=== PATIENT | male | born 1950 | race Caucasian/White ===

== ENCOUNTER 2023-10-29 09:45 | Outpatient (CLI) | payer BC, SELFPAY ==
--- NOTE | 2023-10-29 12:51 | W.ANESCHARGE ---
Anesthesia Charges Start Date/Time Anesthesia Start Date: 10/29/23 Anesthesia Start Time: 12:38 Stop Date/Time Anesthesia Stop Date: 10/29/23 Anesthesia Stop Time: 13:10 Summary Extremes of Age - Over 70 or under 1: MDA
--- NOTE | 2023-10-29 13:12 | W.ANESCHARGE ---
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
== END 2023-10-29 09:46 | disposition home or self-care (01) ==
PROVIDERS: Visit Provider Internal Medicine Gastroenterology
DX: K63.5 Polyp of colon (principal); K64.8 Other hemorrhoids; K57.30 Diverticulosis of large intestine without perforation or abscess without bleeding; Q43.8 Other specified congenital malformations of intestine; Z86.010 Personal history of colon polyps
CPT/HCPCS: 00811; 45380; 88305; 99100; J2704

== ENCOUNTER 2025-06-20 09:58 | Emergency (ER) | payer BC, SELFPAY ==
--- OUTSIDE RECORDS SUMMARY | 2025-05-08 08:29 | XMS_ITS | Encounter Summary ---
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 [address] [place] [address] Phone: tel: fax: [facility] Referral IDStatusReasonStart DateExpiration DateVisits RequestedVisits [id number]/7/20251/ Encounter Details DateTypeDepartmentCare Team (Latest Contact Info)Rxrocyqupxf62/07/2025 8:29 AM ELECTRICIAN CRANE MAINTENANCE - 05/08/2025 10:12 AM CSTHospital Encounter Department of Radiology, [facility], in [place], [place] [address] [place] [address] Andre Garcia M.D. 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) Discharge Disposition: Home or Self Care Social History Tobacco UseTypesPacks/DayYears UsedDateSmoking Tobacco: [id number] - 1976CigarsPassive Smoke Exposure: PastSmokeless Tobacco: NeverAlcohol Use Standard Drinks/WeekCommentsYes6 (1 standard drink = 0.6 oz pure alcohol) Humiliation, Afraid, Rape, and Kick questionnaireAnswerDate RecordedWithin the last year, have you been afraid of your partner or ex-partner?No03/07/2022Within the last year, have you been humiliated or emotionally abused in other ways by your partner or ex-partner?No03/07/2022Within the last year, have you been kicked, hit, slapped, or otherwise physically hurt by your partner or ex-partner?No03/07/2022Within the last year, have you been raped or forced to have any kind of sexual activity by your partner or ex-partner?No03/07/2022 Hunger Vital SignAnswerDate RecordedWithin the past 12 months, you worried that your food would run out before you got the money to buymore.Never true01/27/2025 Within the past 12 months, the food you bought just didn't last and you didn't have money to get more.Never true01/27/2025PRAPARE - TransportationAnswerDate RecordedIn the past 12 months, has lack of transportation kept you from medical appointments or from getting medications?No01/27/2025In the past 12 months, has lack of transportation kept you from meetings, work, or from getting things needed for daily living?No01/27/2025HC UtilitiesAnswerDate RecordedIn the past 12 months has the electric, gas, oil, or water company threatened to shut off services in your home?No01/27/2025Housing StabilityAnswerDate RecordedWhat is your living situation today?I have a steady place to live01/27/2025Education AnswerDate RecordedWhat is the highest level of school you have completed or the highest degree you have received?Iffpvgbcz37/16/2022ex and Gender Information ValueDate RecordedSex Assigned at IrlzgIiyb65/07/2018 1:03 PM CDTLegal SexMale 08/03/2016 5:25 PM CSTGender TqdzpxtkXvey87/07/2018 1:03 PM CDTSexual TehsrhvjzcmRqbzycnw94/07/2018 1:03 PM CDTdocumented as of this encounter Medications at Time of Discharge MedicationSigDispense QuantityRefillsLast FilledStart DateEnd Date acetaminophen-codeine (TylenoL #3) 300-30 mg per tablet Indications:Acute Pain ExceptionTake 1 tablet by mouth every 6 (six) hours as needed for severe pain or score 7-10 of 10 (rarely had to taje) Indications: Acute Pain Exception. 15 tablet 12/29/2024 amoxicillin (AmoxiL) 500 mg capsule Indications:Prophylaxis Subacute Bacterial EndocarditisTake 4 caps (2000 mg) 1 hour prior to procedure. 4 capsule candesartan (Atacand) 32 mg tablet Take 32 mg by mouth daily. cholecalciferol (VITAMIN D3) tablet Take 5,000 Units by mouth daily. hydrocortisone (CORTAID) 1 % cream Apply topically as needed.07/22/2018 levothyroxine (SYNTHROID, LEVOTHROID) 137 mcg tablet Take 137 mcg by mouth every morning before breakfast. magnesium oxide-Mg AA chelate (magnesium, amino acid chelate,) 133 mg tablet Take 144 mg by mouth daily. 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) documented in this encounter Administered Medications Medication OrderMAR ActionAction DateDoseRateSite ammonia N 13 injection SKILLED NURSING (N-13 ammonia) 9-16.5 millicurie, intravenous, Once, On Sun05/08/25 at 1000, For 1 dose, Imaging Protocol Orders Given05/08/2025 9:29 AM CST12.3 millicuries ammonia N 13 injection SKILLED NURSING (N-13 ammonia) 9-16.5 millicurie, intravenous, Once, On Sun05/08/25 at 1000, For 1 dose, Imaging Protocol Orders Given05/08/2025 9:44 AM CST13.2 millicuries regadenoson injection 0.4 mg (Lexiscan) 0.4 mg, intravenous, Once, On Sun05/08/25 at 1030, For 1 dose, Intraprocedure - Diagnostic, See protocol Administer via rapid IV injection (approximately 10 seconds). Given05/08/2025 9:44 AM CST0.4 mg sodium chloride 0.9 % injection 5 mL 5 mL, intravenous, As needed, line care, See protocol, Starting on Sun05/08/25 at 1000, Intraprocedure - Diagnostic Given05/08/2025 9:44 AM CST5 mLdocumented in this encounter Additional Health Concerns AssessmentNoted TimePHQ-9 Depression Total Score: 1:04 PM CDT documented as of this encounter Care Teams Team MemberRelationshipSpecialtyStart DateEnd Date Elsewhere, Pcp PCP - GeneralFamily Medicine03/23/21documented as of this encounter
--- OUTSIDE RECORDS SUMMARY | 2025-05-08 10:13 | XMS_ITS | Encounter Summary ---
Author Organization [facility] Address [address] [place] [address] Care Team Providers Care Javascript Front End Developer Name Role Phone Elsewhere, Pcp Primary Care Provider Unavailabl e Encounter Details DateTypeDepartmentCare Team (Latest Contact Info)Cxlevdcuoqj93/07/2025 10:13 AM REGIONAL RETAIL SALES MANAGER - 05/08/2025 11:01 AM CSTHospital Encounter Department of Laboratory Medicine and Pathology, [facility] in [place], [place] [address] [place] [address] Andre Garcia M.D. 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) Discharge Disposition: Home or Self Care Social History Tobacco UseTypesPacks/DayYears UsedDateSmoking Tobacco: [id number] - 1975CigarsPassive Smoke Exposure: PastSmokeless Tobacco: NeverAlcohol [...] RecordedIn the past 12 months has the [employer], gas, oil, or water [employer] threatened to shut off services in your home?No01/27/2025Housing StabilityAnswerDate RecordedWhat is your living situation today?I have a steady place to live01/27/2025Education AnswerDate RecordedWhat is the highest level of school you have completed or the highest degree you have received?Wvwcflffv21/16/2022ex and Gender Information ValueDate RecordedSex Assigned at NtomgAeyl17/07/2018 1:03 PM CDTLegal SexMale 08/03/2016 5:25 PM CSTGender XbyyhxoeBobx91/07/2018 1:03 PM CDTSexual PesfhultwyxAjdpizbs11/07/2018 1:03 PM CDTdocumented as of this encounter [...] as of this encounter Procedures Procedure NamePriorityDate/TimeAssociated DiagnosisCommentsLIPID PANEL, SRoutine 05/08/2025 10:30 AM REGIONAL RETAIL SALES MANAGER Shortness Of Breath 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) documented in this encounter Results * Lipid Panel (05/08/2025 10:30 AM REGIONAL RETAIL SALES MANAGER)ComponentValueRef RangeTest Method Analysis TimePerformed AtPathologist BcutifstrWayplgrlgbema06rz/dL05/08/2025 11:30 AM CSTDTLComment: ----REFERENCE VALUE---- Normal: <150 mg/dL Borderline High: 150-199 mg/dL High: 200-499 mg/dL Very High: > or =500 mg/dL Cholesterol, Mkhse361hv/dL05/08/2025 11:30 AM CSTDTLComment: ----REFERENCE VALUE---- Desirable: < 200 mg/dL Borderline High: 200 - 239 mg/dL High: > or = 240 mg/dL Cholesterol, LDL, Kxwuxcdhbt32wi/dL05/08/2025 11:30 AM CSTDTLComment: ----REFERENCE VALUE---- Desirable: <100 mg/dL Above Desirable: 100-129 mg/dL Borderline High: 130-159 mg/dL High: 160-189 mg/dL Very High: >=190 mg/dL ----ADDITIONAL INFORMATION---- LDL cholesterol calculated using the Richardson/NIH equation. Cholesterol, HDL, S51>=40 mg/dL05/08/2025 11:30 AM CSTDTLCholesterol, Non-HDL, Exkwzqfajn11dz/dL05/08/2025 11:30 AM CSTDTLComment: ----REFERENCE VALUE---- Desirable: <130 mg/dL Above Desirable: 130-159 mg/dL Borderline High: 160-189 mg/dL High: 190-219 mg/dL Very High: > or =220 mg/dL Fasting (8 HR or more)Yes05/08/2025 10:30 AM CSTDTLSpecimen (Source)Anatomical Location / LateralityCollection Method / VolumeCollection TimeReceived TimeBlood (Blood, Venous)05/08/2025 10:30 AM CST05/08/2025 10:52 AM REGIONAL RETAIL SALES MANAGER Narrative Authorizing ProviderResult TypeResult StatusRobert Rony Garcia M.D.LAB BLOOD ADD-ON Final ResultPerforming OrganizationAddressCity/State/ZIP CodePhone Number [facility] [address] [place] [address], [facility] DTL 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
--- OUTSIDE RECORDS SUMMARY | 2025-05-08 11:02 | XMS_ITS | Encounter Summary ---
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 [address] [place] [address] Phone: tel: fax: [facility] Referral IDStatusReasonStart DateExpiration DateVisits RequestedVisits [id number]/7/202711 Encounter Details DateTypeDepartmentCare Team (Latest Contact Info)Xyraljgjanb89/07/2025 11:02 AM INTERIOR DESIGN COORDINATOR - 05/08/2025 2:29 PM CSTHospital Encounter Department of Radiology, [facility], in [place], [place] [address] [place] [address] Andre Garcia M.D. 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); Inferior Vena Cava Filter Discharge Disposition: Home or Self Care Social History Tobacco UseTypesPacks/DayYears UsedDateSmoking Tobacco: [id number] - 1976CigarsPassive Smoke Exposure: PastSmokeless Tobacco: NeverAlcohol [...] completed or the highest degree you have received?Sshlvlhvx67/16/2022ex and Gender Information ValueDate RecordedSex Assigned at FcbitZkid97/07/2018 1:03 PM CDTLegal SexMale 08/03/2016 5:25 PM CSTGender DcrscigiPscd81/07/2018 1:03 PM CDTSexual AbgyfmiuutlJqjrzded01/07/2018 1:03 PM CDTdocumented as of this encounter [...] as of this encounter Procedures Procedure NamePriorityDate/TimeAssociated DiagnosisCommentsUS LOWER EXTREMITY VEINS BILATERALRAD - Routine (most inpatients and all outpatients)05/08/2025 2:03 PM INTERIOR DESIGN COORDINATOR 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 Positive for acute DVT. Acute appearing, occlusive thrombus in the right soleal vein was not visualized on the comparison examination dated 01/09/2025. 2. Positive for age indeterminate DVT. A segment of occlusive thrombus in one of the paired left posterior tibial veins at the level of the upper calf was not demonstrated on the prior examination of01/09/2025. 3. Aging, incompletely recanalized thrombus in the left soleal vein. 4. Again noted is a large left thigh hematoma, which compresses the left femoral vein and again noted to cause venous obstruction by extrinsic compression of the femoral vein. Slow flow is noted in the veins below the hematoma level. The findings were discussed with the covering physician, Dr. Allen, pager [phone], at 1447 hours today. Narrative 05/08/2025 3:48 PM INTERIOR DESIGN COORDINATOR EXAM: US LOWER EXTREMITY VEINS BILATERAL Exam performed with color and spectral Doppler analysis. COMPARISON: 12/26/2024 and 01/09/2025. FINDINGS: RIGHT: Common Femoral Vein: Negative. Profunda Femoral Vein: Negative. Femoral Vein: Negative. Popliteal Vein: Negative. Gastrocnemius Veins: Negative where seen. Soleal Veins: Acute DVT. Occlusive thrombus in the right soleal vein was not visualized on the comparison examination dated 01/09/2025. Posterior Tibial Veins: Negative where seen. Peroneal Veins: Negative where seen. Great Saphenous Vein: Negative where seen. Small Saphenous Vein: Not Evaluated. Popliteal Fossa: Negative. Other: n/a LEFT: Common Femoral Vein: Negative. Profunda Femoral Vein: Negative. Femoral Vein: Negative for acute DVT. Significantly compressed by the very large thigh hematoma, which was seen previously. Slow flow is noted in the in the veins below the hematoma level. Popliteal Vein: Negative. Gastrocnemius Veins: Negative where seen. Soleal Veins: Aging, incompletely recanalized thrombus. Posterior Tibial Veins: Age indeterminate DVT. A segment of occlusive thrombus in one of the pairedleft posterior tibial veins at the level of the upper calf was not demonstrated on the prior examinations. Peroneal Veins: Negative where seen. Great Saphenous Vein: Negative where seen. Small Saphenous Vein: Not Evaluated. Popliteal Fossa: Negative. Other: n/a Information on venous thrombosis and management can be found on the [employer] site. Link https://[employer].[facility]/topic/clinical-answers/[email or web address]/[email or web address] Procedure Note Chad Mazariegos M.D. - 05/08/2025 EXAM: US LOWER EXTREMITY VEINS BILATERAL Exam performed with color and spectral Doppler analysis. COMPARISON: 12/26/2024 and 01/09/2025. FINDINGS: RIGHT: Common Femoral Vein: Negative. Profunda Femoral Vein: Negative. Femoral Vein: Negative. Popliteal Vein: Negative. Gastrocnemius Veins: Negative where seen. Soleal Veins: Acute DVT. Occlusive thrombus in the right soleal vein wasnot visualized on the comparison examination dated 01/09/2025. Posterior Tibial Veins: Negative where seen. Peroneal Veins: Negative where seen. Great Saphenous Vein: Negative where seen. Small Saphenous Vein: Not Evaluated. Popliteal Fossa: Negative. Other: n/a LEFT: Common Femoral Vein: Negative. Profunda Femoral Vein: Negative. Femoral Vein: Negative for acute DVT. Significantly compressed by the verylarge thigh hematoma, which was seen previously. Slow flow is noted in thein the veins below the hematoma level. Popliteal Vein: Negative. Gastrocnemius Veins: Negative where seen. Soleal Veins: Aging, incompletely recanalized thrombus. Posterior Tibial Veins: Age indeterminate DVT. A segment of occlusivethrombus in one of the paired left posterior tibial veins at the level ofthe upper calf was not demonstrated on the prior examinations. Peroneal Veins: Negative where seen. Great Saphenous Vein: Negative where seen. Small Saphenous Vein: Not Evaluated. Popliteal Fossa: Negative. Other: n/a Information on venous thrombosis and management can be found on the[employer] site. [email or web address].[email or web address].org/topic/clinical-answers/[email or web address]/cp [id number] IMPRESSION: 1. Positive for acute DVT. Acute appearing, occlusive thrombus in theright soleal vein was not visualized on the comparison examination date01/09/2025. 2. Positive for age indeterminate DVT. A segment of occlusive thrombus inone of the paired left posterior tibial veins at the level of the uppercalf was not demonstrated on the prior examination of 01/09/2025. 3. Aging, incompletely recanalized thrombus in the left soleal vein. 4. Again noted is a large left thigh hematoma, which compresses the leftfemoral vein and again noted to cause venous obstruction by extrinsiccompression of the femoral vein. Slow flow is noted in the veins below thehematoma level. The findings were discussed with the covering physician, Dr. Allen,pager [phone], at 1447 hours today. 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
--- OUTSIDE RECORDS SUMMARY | 2025-05-08 14:30 | XMS_ITS | Encounter Summary ---
Author Organization [facility] Address [address] [place] [address] Care Team Providers Care Shipbuilding Draftsperson Name Role Phone Elsewhere, Pcp Primary Care Provider Unavailabl e Reason for Referral * Cardiovascular-Diagnostic (Routine) - ClosedSpecialtyDiagnoses / Procedures Referred By ContactReferred To Contact Diagnoses Raynaud's Disease Procedures Upper Extremity Arterial - Vasospasm (Raynaud) Andre Garcia M.D. [address] [place] [address] Phone: tel: fax: [facility] Referral IDStatusReasonStart DateExpiration DateVisits RequestedVisits [id number]/[id number] FINISHER Reason for Visit * Cardiovascular-Diagnostic (Routine) - ClosedSpecialtyDiagnoses / Procedures Referred By ContactReferred To Contact Diagnoses Raynaud's Disease Procedures Upper Extremity Arterial - Vasospasm (Raynaud) Andre Garcia M.D. [address] [place] [address] Phone: tel: fax: [facility] Referral IDStatusReasonStart DateExpiration DateVisits RequestedVisits [id number] Encounter Details DateTypeDepartmentCare Team (Latest Contact Info)Iopbcsickzv36/07/2025 2:30 PM SEAM FINISHER - 05/08/2025 11:59 PM CSTHospital Encounter Department of Vascular Medicine in [place], [place] [address] [place] [address] Andre Garcia M.D. [address] [place] [phone] Raynaud's Disease Discharge Disposition: Home or Self Care Social History Tobacco UseTypesPacks/DayYears UsedDateSmoking Tobacco: [id number] - 1976CigarsPassive Smoke Exposure: PastSmokeless Tobacco: NeverAlcohol [...] completed or the highest degree you have received?Wfjbqkrny65/16/2022ex and Gender Information ValueDate RecordedSex Assigned at FvlelYimm52/07/2018 1:03 PM CDTLegal SexMale 08/03/2016 5:25 PM CSTGender PindaiftSncn14/07/2018 1:03 PM CDTSexual LxthydtakbjDhzemtyp06/07/2018 1:03 PM CDTdocumented as of this encounter [...] as of this encounter Procedures Procedure NamePriorityDate/TimeAssociated DiagnosisCommentsUPPER EXTREMITY ARTERIAL - VASOSPASM (RAYNAUD)Jwpestw6605/08/2025 4:26 PM SEAM FINISHER Raynaud's Disease documented in this encounter Results * Upper Extremity Arterial - Vasospasm (Raynaud) (05/08/2025 4:26 PM SEAM FINISHER) Anatomical RegionLateralityModalityOtherSpecimen (Source)Anatomical Location / LateralityCollection Method / VolumeCollection TimeReceived Time05/08/2025 2:42 PM SEAM FINISHER Narrative 05/08/2025 4:44 PM SEAM FINISHER Right: Doppler Waveform (arm): Normal at all levels evaluated. Systolic Blood Pressure (mmHg): Brachial- 138 Radial- 140 Ulnar- 141 PVR Waveforms: Normal-- arm, forearm. Sid's Test: Radial-- 105 mmHg Ulnar-- 140 mmHg Digit Pressure: ?Normal-- ?1st, ??3rd, ??5th. ?Decreased-- ? 2nd, ??4th, ?? Baseline (room) Digit Temperature: ?Decreased-- ? All digits. ?? Baseline (room) Digit Laser Doppler: ? Decreased-- ?All digits. ??Post-Warming Digit Laser Doppler: ? Decreased-- ?All digits. ?? Left: Doppler Waveform (arm): ??Normal at all levels evaluated. ??Systolic Blood Pressure (mmHg): ?Brachial- ? 140 ? Radial- ? 158 ? Ulnar- ? 144 PVR Waveforms: ?Normal-- ?? arm, forearm. Sid's Test: ? Radial-- ?132 mmHg ?Ulnar-- ? 137 mmHg Digit Pressure: ?Normal-- ?1st, ??2nd, ??3rd, ??4th, ?Decreased-- ? 5th. Baseline (room) Digit Temperature: ?Decreased-- ? All digits. ?? Baseline (room) Digit Laser Doppler: ? Decreased-- ?All digits. ??Post-Warming Digit Laser Doppler: ? Decreased-- ?All digits. ?? Conclusions: No proximal upper extremity arterial occlusive disease. ?? Sid's ??test is positive for arterial compromise in the right radial distribution. ??Arterial occlusive disease affecting most if not all digits bilaterally. ?? Secondary vasospasm bilaterally. ?? No prior studies available for comparison. ?? Procedure Note Duncan Allen M.D. - 05/08/2025 Right: Doppler Waveform (arm): Normal at all levels evaluated. SystolicBlood Pressure (mmHg): Brachial- 138 Radial- 140 Ulnar-141 PVR Waveforms: Normal-- arm, forearm. Sid's Test:Radial-- 105 mmHg Ulnar-- 140 mmHg Digit Pressure: Normal-- 1st, 3rd, 5th. Decreased--2nd, 4th, Baseline (room) Digit Temperature: Decreased--All digits. Baseline (room) Digit Laser Doppler: Decreased--All digits. Post-Warming Digit Laser Doppler: Decreased-- All digits. Left: Doppler Waveform (arm): Normal at all levels evaluated. SystolicBlood Pressure (mmHg): Brachial- 140 Radial- 158 Ulnar-144 PVR Waveforms: Normal-- arm, forearm. Sid's Test:Radial-- 132 mmHg Ulnar-- 137 mmHg Digit Pressure: Normal-- 1st, 2nd, 3rd, 4th,Decreased-- 5th. Baseline (room) Digit Temperature: Decreased--All digits. Baseline (room) Digit Laser Doppler: Decreased--All digits. Post-Warming Digit Laser Doppler: Decreased-- All digits. Conclusions: No proximal upper extremity arterial occlusive disease.Sid's test is positive for arterial compromise in the right radialdistribution. Arterial occlusive disease affecting most if not all digitsbilaterally. Secondary vasospasm bilaterally. No prior studies available for comparison. Authorizing ProviderResult TypeResult StatusRobert Rony Garcia M.D.CV VASCULAR PROCEDURESFinal Result documented in this encounter Visit Diagnoses Diagnosis Raynaud's Disease documented in this encounter Additional Health Concerns AssessmentNoted TimePHQ-9 Depression Total Score: 1:04 PM CDT documented as of this encounter Care Teams Team MemberRelationshipSpecialtyStart DateEnd Date Elsewhere, Pcp PCP - GeneralFamily Medicine03/23/21documented as of this encounter
--- OUTSIDE RECORDS SUMMARY | 2025-05-11 11:00 | XMS_ITS | Encounter Summary ---
Author Organization [facility] Address [address] [place] [address] Care Team Providers Care Costumed Character Name Role Phone Elsewhere, Pcp Primary Care Provider Unavailabl e Reason for Visit * Outpatient (Routine) - ClosedSpecialtyDiagnoses / ProceduresReferred By ContactReferred To ContactRadiology Diagnoses Inferior Vena Cava Filter Andre Garcia M.D. [address] [place] [address] Phone: tel: fax: [facility] Referral IDStatusReasonStart DateExpiration DateVisits RequestedVisits [id number]/8/20254/ Encounter Details DateTypeDepartmentCare Team (Latest Contact Info)Etywwgznfor38/10/2025 11:00 AM CSTTelemedicine Department of Radiology, [facility], in [place], [place] [address] [place] [phone] Lindsey Lu APRN, C.N.P., M.S.N. [address] [place] [phone] Inferior Vena Cava Filter (Primary Dx) Social History Tobacco UseTypesPacks/DayYears UsedDateSmoking Tobacco: [id number] - 1975CigarsPassive Smoke Exposure: PastSmokeless Tobacco: NeverAlcohol Use Standard Drinks/WeekCommentsYes6 (1 standard drink = 0.6 oz pure alcohol) Humiliation, Afraid, Rape, and Kick questionnaireAnswerDate RecordedWithin the last year, have you been afraid of your partner or ex-partner?No03/07/2022Within the last year, have you been humiliated or emotionally abused in other ways by your partner or ex-partner?03/07/2022Within the last year, have you been kicked, [...] RecordedIn the past 12 months has the [employer], gas, oil, or water company threatened to shut off services in your home?01/27/2025Housing StabilityAnswerDate RecordedWhat is your living situation today?I have a steady place to live01/27/2025Education AnswerDate RecordedWhat is the highest level of school you have completed or the highest degree you have received?Rxbojrmls05/16/2022ex and Gender Information ValueDate RecordedSex Assigned at EncvfFrvp47/07/2018 1:03 PM CDTLegal SexMale 08/03/2016 5:25 PM CSTGender GidazpgiLrsj60/07/2018 1:03 PM CDTSexual OenumutpkeiKtbumaxm42/07/2018 1:03 PM CDTdocumented as of this encounter Progress Notes * Lindsey Lu APRN, C.N.P., M.S.N. - 05/11/2025 11:00 AM CST Images from the original note were not included. VASCULAR INTERVENTIONAL RADIOLOGY CONSULT NOTE REASON FOR CONSULT Referring Provider: Andre Garcia M.D. Chief Complaint/Reason for Consult: No chief complaint on file. SUBJECTIVE Consult conducted via real-time audio/video technology by Lindsey Lu APRN, C.N.P., M.S.N. in [facility] to the patient in Patient's Home 74-year-old gentleman presenting with complicated history including PFO with bidirectional shunting, DVT/PE, AFib s/p prior ablations, multiple left hip arthroplasty procedure complicated by recurrent hip hematomas. He eventually required pelvic angiogram on 02/03/2025 with particle embolization of2 multilobe pseudoaneurysms arising off terminal branches of the left internal iliac artery. Prior to this, a retrievable Ruth Ann IVC filter was placed at an outside facility on 10/21/2024. This was performed under the indication of a nonocclusive DVT in the distal left femoral vein, along with concomitant left thigh hematoma. Patient is now S/P PFO closure with Watchman device placement on12/12/2024. Anticoagulation is no longer indicated, no recurrent signs for bleeding from the left hip. VITAL SIGNS There were no vitals filed for this visit. Medications Ordered Prior to Encounter[1] PHYSICAL EXAMINATION Constitutional Comments: NAD, alert and oriented, no cognitive barriers to learning DIAGNOSTICS 05/08/25 DVT BLE US IMPRESSION: 1. Positive for acute DVT. Acute [...] in the veins below the hematoma level. ASSESSMENT / PLAN #1 Inferior Vena Cava Filter 74-year-old gentleman with complicated medical history including PFO with bidirectional shunting, DVT/PE, AFib s/p prior ablations. 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 Prior to this, aretrievable Ruth Ann IVC filter was placed at an outside facility on 10/21/2024 due to new nonocclusive DVT in the distal left femoral vein with inability to anticoagulate from active left thigh hematoma. These images are not available, however radiology report details a widely patent IVC, with filter successfully placed at the infrarenal level. Patient is now S/P Watchman device placement with PFO closure on 12/12/2024. He has been doing wellfrom a bleeding perspective, has not had further episodes of recurrent left thigh hematoma. Vascular medicine continues to follow closely, now recommends consideration for IVC filter retrieval. I am seeing patient in clinic follow-up on video visit today. Unfortunately, recent DVT US obtained on 05/08/25 shows new acute DVT in the right soleal vein, along with age indeterminate DVT in the left posterior tibial vein. The large left thigh hematoma compresses the left femoral vein with compromised flow below the level of the hematoma. Patient is currently not on any anticoagulation since placement of Watchman device. However, given new DVT findings on recent US, we'll hold off IVC filter retrieval at this time. He will see vascular medicine later this week with repeat DVT ultrasound study to determine extension of either thrombus. Reinitiating anticoagulation may be indicated. It will also be beneficial to update with abdomen pelvis CT venogram to assess orientation of current IVCfilter, additionally evaluate extrinsic compression of the hematoma to involved vasculature. Patient and his voiced understanding and agreeable to proceed with the plan. PLAN -Repeat DVT US is scheduled for 05/14, he will see Dr. Allen in clinic same- day to determine reinitiating anticoagulation -Abd/pelvis CTV with lab work scheduled same day -Continue follow-up with Vascular Medicine, return to VIR once IVC filter retrieval is indicated I personally spent over half of a total 60 minutes in NF2F counseling and discussion with the patient and coordination of care as described above. [1] Current Outpatient Medications on File Prior to Visit Medication Sig Dispense Refill acetaminophen-codeine (TylenoL #3) 300-30 mg per tablet Take 1 tablet by mouth every 6 (six) hours as needed for severe pain or score 7-10 of 10 (rarely had to taje) Indications: Acute Pain Exception. 15 tablet 0 amoxicillin (AmoxiL) 500 mg capsule Take 4 caps (2000 mg) 1 hour prior to procedure. 4 capsule 2 candesartan (Atacand) 32 mg tablet Take 32 mg by mouth daily. cholecalciferol (VITAMIN D3) tablet Take 5,000 Units by mouth daily. hydrocortisone (CORTAID) 1 % cream Apply topically as needed. levothyroxine (SYNTHROID, LEVOTHROID) 137 mcg tablet Take 137 mcg by mouth every morning before breakfast. magnesium oxide-Mg AA chelate (magnesium, amino acid chelate,) 133 mg tablet Take 144 mg by mouth daily. pravastatin (PRAVACHOL) 40 mg tablet Take 40 mg by mouth at bedtime. sildenafiL (VIAGRA) 50 mg tablet Take 50 mg by mouth as needed. No current facility-administered medications on file prior to visit. NTIA PROGRAM DIRECTOR documented in this encounter Plan of Treatment Not on file documented as of this encounter Visit Diagnoses Diagnosis Inferior Vena Cava Filter- Primary documented in this encounter Additional Health Concerns AssessmentNoted TimePHQ-9 Depression Total Score: 1:04 PM CDT documented as of this encounter Care Teams Team MemberRelationshipSpecialtyStart DateEnd Date Elsewhere, Pcp PCP - GeneralFamily Medicine03/23/21documented as of this encounter
--- OUTSIDE RECORDS SUMMARY | 2025-05-14 08:40 | XMS_ITS | Encounter Summary ---
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 [address] [place] [address] Phone: tel: fax: [facility] Referral IDStatusReasonStart DateExpiration DateVisits RequestedVisits [id number]/10/20252/ Encounter Details DateTypeDepartmentCare Team (Latest Contact Info)Hyvaqbgjtfi08/13/2025 8:40 AM DUMPLING MACHINE OPERATOR - 05/14/2025 9:49 AM CSTHospital Encounter Department of Radiology, [facility], in [place], [place] [address] [place] [address] Lindsey Lu APRN, C.N.P., M.S.N. 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); Anemia; Thrombocytopenia; Inferior Vena Cava Filter Discharge Disposition: Home or Self Care Social History Tobacco UseTypesPacks/DayYears UsedDateSmoking Tobacco: [id number] - 1975CigarsPassive Smoke Exposure: PastSmokeless Tobacco: NeverAlcohol [...] completed or the highest degree you have received?Pgoxkfswb42/16/2022ex and Gender Information ValueDate RecordedSex Assigned at ThocnAjpr92/07/2018 1:03 PM CDTLegal SexMale 08/03/2016 5:25 PM CSTGender UytayutvNeny46/07/2018 1:03 PM CDTSexual QcryyfckhpaAtsjirbz41/07/2018 1:03 PM CDTdocumented as of this encounter [...] as of this encounter Procedures Procedure NamePriorityDate/TimeAssociated DiagnosisCommentsCT ABDOMEN PELVIS VENOGRAM WITH IV CONTRASTRAD - Routine (most inpatients and all outpatients) 05/14/2025 10:17 AM DUMPLING MACHINE OPERATOR Acute Embolism And Thrombosis Of Left Femoral Vein (HCC) Embolism Pulmonary Septic (HCC) Atrial Fibrillation Unspecified (HCC) 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) Anemia Thrombocytopenia Inferior Vena Cava Filter documented in this encounter Results * CT Abdomen Pelvis Venogram with IV Contrast (05/14/2025 10:17 AM DUMPLING MACHINE OPERATOR) Anatomical RegionLateralityModalityAbdomen, Pelvis, Cardiovascular RST LOS, Abdominal ARZ LOS, Vascular Interventional FLA LOS, Procedural, Vascular Interventional NWWI LOSN/AComputed Tomography, Computed TomographySpecimen (Source)Anatomical Location / LateralityCollection Method / VolumeCollection TimeReceived Time05/14/2025 10:10 AM DUMPLING MACHINE OPERATOR Impressions 05/14/2025 10:11 AM DUMPLING MACHINE OPERATOR The IVC is patent with an infrarenal IVC filter in place. Minimal penetration of the caval filter to the caval wall. Remainder unchanged. Narrative 05/14/2025 10:11 AM DUMPLING MACHINE OPERATOR EXAM: CT ABDOMEN PELVIS VENOGRAM WITH IV CONTRAST Including 3D image post-processing with or without AI assistance. COMPARISON: FINDINGS: The IVC is patent with an infrarenal IVC filter in place. There is minimal penetration of the cavalwall by the filter legs most marked in the medial aspect of the filter. The filter is tilted slightly posterior medially within the cava. There is no evidence of thrombus in the filter. The iliac andfemoral veins are patent. Unchanged calcified and noncalcified soft tissue reaction surrounding the THAs. Remainder unchangedfrom prior study. Procedure Note Barry Ramesh M.D. - 05/14/2025 EXAM: CT ABDOMEN PELVIS VENOGRAM WITH IV CONTRAST Including 3D image post-processing with or without AI assistance. COMPARISON: FINDINGS: The IVC is patent with an infrarenal IVC filter in place. There is minimal penetration of the caval wall by the filter legs most marked in the medialaspect of the filter. The filter is tilted slightly posterior mediallywithin the cava. There is no evidence of thrombus in the filter. The iliacand femoral veins are patent. Unchanged calcified and noncalcified soft tissue reaction surrounding theTHAs. Remainder unchanged from prior study. IMPRESSION: The IVC is patent with an infrarenal IVC filter in place. Minimalpenetration of the caval filter to the caval wall. Remainder unchanged. 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) Anemia Thrombocytopenia Inferior Vena Cava Filter documented in this encounter Administered Medications Medication OrderMAR ActionAction DateDoseRateSite iodixanoL 320 mg iodine/mL injection 1-200 mL (Visipaque) 1-200 mL, intravenous, Once in imaging, contrast, Starting on Radha 05/14/25 at 0956, For 1 dose, Imaging Protocol Orders, Dose per Radiant Medication Guidelines Given05/14/2025 9:58 AM EGU858 mL sodium chloride (PF) 0.9 % injection 1-100 mL 1-100 mL, intravenous, Once, On Radha 05/14/25 at 1015, For 1 dose, Imaging Protocol Orders, Dose perRadiant Medication Guidelines Given05/14/2025 9:58 AM CST50 mLdocumented in this encounter Additional Health Concerns AssessmentNoted TimePHQ-9 Depression Total Score: 1:04 PM CDT documented as of this encounter Care Teams Team MemberRelationshipSpecialtyStart DateEnd Date Elsewhere, Pcp PCP - GeneralFamily Medicine03/23/21documented as of this encounter
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
--- OUTSIDE RECORDS SUMMARY | 2025-05-14 11:24 | XMS_ITS | Encounter Summary ---
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 [address] [place] [address] Phone: tel: fax: [facility] Referral IDStatusReasonStart DateExpiration DateVisits RequestedVisits [id number]/7/20252/ Encounter Details DateTypeDepartmentCare Team (Latest Contact Info)Ohegtprcdto79/13/2025 11:24 AM CONSOLE ATTENDANT - 05/14/2025 11:59 PM CSTHospital Encounter Department of Radiology, [facility], in [place], [place] [address] [place] [address] Duncan Allen M.D. 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) Discharge Disposition: Home or Self Care Social History Tobacco UseTypesPacks/DayYears UsedDateSmoking Tobacco: [id number] - 1976CigarsPassive Smoke Exposure: PastSmokeless Tobacco: NeverAlcohol [...] completed or the highest degree you have received?Yqunwrbts98/16/2022ex and Gender Information ValueDate RecordedSex Assigned at SpbvoJogy94/07/2018 1:03 PM CDTLegal SexMale 08/03/2016 5:25 PM CSTGender BbgdylkpIbrx72/07/2018 1:03 PM CDTSexual MiqkviircciNcswmbkj69/07/2018 1:03 PM CDTdocumented as of this encounter [...] BILATERALRAD - Routine (most inpatients and all outpatients)05/14/2025 1:50 PM CONSOLE ATTENDANT Embolus Pulmonary Personal History 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 Narrative 05/14/2025 2:06 PM CONSOLE ATTENDANT EXAM: US LOWER EXTREMITY VEINS BILATERAL Exam performed with color and spectral Doppler analysis. COMPARISON: 05/08/2025 FINDINGS: RIGHT: Common Femoral Vein: Negative. Profunda Femoral Vein: Negative. Femoral Vein: Negative. Popliteal Vein: Negative. Gastrocnemius Veins: Negative where seen. Soleal Veins: Acute DVT. No change. Posterior Tibial Veins: Negative where seen. Peroneal Veins: Negative where seen. Great Saphenous Vein: Negative where seen. Small Saphenous Vein: Not Evaluated. Popliteal Fossa: Negative. Other: n/a LEFT: Large thigh hematoma. Common Femoral Vein: Negative. Profunda Femoral Vein: Negative. Femoral Vein: Negative. Popliteal Vein: Negative. Gastrocnemius Veins: Negative where seen. Soleal Veins: Aging, incompletely recanalized thrombus. No change. Posterior Tibial Veins: Age Indeterminate DVT. No change. Peroneal Veins: Negative where seen. Great Saphenous Vein: Negative where seen. Small Saphenous Vein: Not Evaluated. Popliteal Fossa: Negative. Other: n/a Information on venous thrombosis and management can be found on the [employer] site. Link [email or web address] Procedure Note Dea Mims M.D. - 05/14/2025 EXAM: US LOWER EXTREMITY VEINS BILATERAL Exam performed with color and spectral Doppler analysis. COMPARISON: 05/08/2025 FINDINGS: RIGHT: Common Femoral Vein: Negative. Profunda Femoral Vein: Negative. Femoral Vein: Negative. Popliteal Vein: Negative. Gastrocnemius Veins: Negative where seen. Soleal Veins: Acute DVT. No change. Posterior Tibial Veins: Negative where seen. Peroneal Veins: Negative where seen. Great Saphenous Vein: Negative where seen. Small Saphenous Vein: Not Evaluated. Popliteal Fossa: Negative. Other: n/a LEFT: Large thigh hematoma. Common Femoral Vein: Negative. Profunda Femoral Vein: Negative. Femoral Vein: Negative. Popliteal Vein: Negative. Gastrocnemius Veins: Negative where seen. Soleal Veins: Aging, incompletely recanalized thrombus. No change. Posterior Tibial Veins: Age Indeterminate DVT. No change. Peroneal Veins: Negative where seen. Great Saphenous Vein: Negative where seen. Small Saphenous Vein: Not Evaluated. Popliteal Fossa: Negative. Other: n/a Information on venous thrombosis and management can be found on theAskMayoExpert site. [email or web address] IMPRESSION: No change in this exam bilaterally. 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
--- OUTSIDE RECORDS SUMMARY | 2025-05-14 14:00 | XMS_ITS | Encounter Summary ---
Author Organization [facility] Address [address] [place] [address] Care Team Providers Care Orthotic/Prosthetic Practitioner Name Role Phone Elsewhere, Pcp Primary Care Provider Unavailabl e Reason for Visit * Outpatient (Routine) - ClosedSpecialtyDiagnoses / ProceduresReferred By ContactReferred To ContactVascular Medicine Duncan Allen M.D. [address] [place] [address] Phone: tel: fax: [facility] Referral IDStatusReasonStart DateExpiration DateVisits RequestedVisits [id number]/7/20255/ Encounter Details DateTypeDepartmentCare Team (Latest Contact Info)Jasslzhfvlj76/13/2025 2:00 PM CSTOffice Visit Department of Vascular Medicine in [place], [place] [address] [place] [address] Duncan Allen M.D. [address] [place] [address] Embolism Pulmonary Septic (HCC) (Primary Dx); Hematoma Of Soft Tissue Nontraumatic; Inferior Vena Cava Filter; Hypertension Essential Primary Social History Tobacco UseTypesPacks/DayYears UsedDateSmoking Tobacco: [id number] - 1976CigarsPassive Smoke Exposure: PastSmokeless Tobacco: Never Tobacco Cessation:Counseling Given: Not Answered Alcohol UseStandard Drinks/WeekCommentsYes6 (1 standard drink = 0.6 oz pure alcohol)Humiliation, Afraid, Rape, and Kick questionnaireAnswerDate Recorded Within the last year, have you been afraid of your partner or ex-partner?No 03/07/2022Within the last year, have you been humiliated [...] completed or the highest degree you have received?Ljqodxlww43/16/2022ex and Gender Information ValueDate RecordedSex Assigned at QzxygZexn93/07/2018 1:03 PM CDTLegal SexMale 08/03/2016 5:25 PM CSTGender GvgyriyfUilc01/07/2018 1:03 PM CDTSexual LcqrfompkwsYjxfptfb97/07/2018 1:03 PM CDTdocumented as of this encounter Last Filed Vital Signs Vital SignReadingTime TakenCommentsBlood Pflsmhfr487/51563 2:18 PM PROTEIN CHEMIST Wcusj2612 2:18 PM CSTTemperature--Respiratory Rate--Oxygen Saturation-- Inhaled Oxygen Concentration--Bqkeas69.7 kg (199 lb 15.3 oz)05/14/2025 2:15 PM TQSPlcshk878.9 cm (6' 0.01)05/14/2025 2:15 PM CSTBody Mass Index27. 2:15 PM CSTdocumented in this encounter Progress Notes * Duncan Allen M.D. - 05/14/2025 2:00 PM CST REFERRAL SOURCE Duncan Allen M.D. 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 He is usually seen by 1 of my colleagues who is away. Last week he had an ultrasound showing new calf vein thrombosis right lower extremity. He had a known thrombus in the left. Had recent spontaneous hematoma in the left thigh. IVC filter was placed. Since that time anticoagulation has been held. He also had Watchman device placed recently reduce chance of atrial fibrillation induced thrombosis and stroke. I had scheduled an ultrasound again today, 1 week later for follow up. It is unchanged from previous. Of note, on arrival today his blood pressure is quite high. He states it tends to run high at times. I believe this is in part due to atrial fibrillation. May take his blood pressure at home, showingme values on his phone, they can vary between the 120s and 160s. The following portions of the patient's history were reviewed and updated as appropriate: allergies, current medications, family history, medical history, social history, surgical history, psychiatric history, substance abuse history, problem list, labs, diagnostics tests. I reviewed the pertinent clinical notes in the electronic health record. REVIEW OF SYSTEMS 14 systems reviewed. Pertinent positives and pertinent negatives are documented in the history of present illness. OBJECTIVE VITALS BP (!) 202/105 (BP Location: Right arm, Patient Position: Sitting, Cuff Size: Regular) Pulse (!) 51 Ht 182.9 cm Wt 90.7 kg BMI 27.11 kg/m?? Blood pressure taken manually. Great variation in systolic pressure depending on time between heartbeats. Regular rhythm due to atrial fibrillation likely accounts for the variability. On my manual read, consistent systolic pressure in the mid 140s with diastolic in the 80s. PHYSICAL EXAMINATION Body mass index is 27.11 kg/m??. General: Very pleasant gentleman no acute distress accompanied by 2 daughters on phone Head: Atraumatic normocephalic Neck: Supple, full range of motion Extremities: Left thigh markedly larger than right. Edema of 1+ bilaterally. Neurologic: Alert oriented x3 Skin: Unremarkable DIAGNOSTIC REVIEW All labs and diagnostic studies were reviewed. ASSESSMENT / PLAN #1 Embolism Pulmonary Septic (HCC) #2 Hematoma Of Soft Tissue Nontraumatic #3 Inferior Vena Cava Filter #4 Hypertension Essential Primary For now continue off of anticoagulation due to recent hematoma. There has been no growth of the lower extremity thrombi. He has a scheduled phone visit with Dr. Andre Garcia next week. In between now and then I have asked him to take his blood pressure twice daily to get better idea where it is truly running. Adding an additional agent is likely. Beta-noni may help reduce the heart rate variability, neither had a diuretic may be a good option as well if pressure is markedly elevated. Terms of activity, he asked about a lymphedema pump. He should not use this at this time. He certainly may use we will pull, steam bath, or infrared sauna as he wishes. I have encouraged ambulation and calf exercise. In his daughter are in agreement with the plan. Duncan Allen M.D. EIN CHEMIST documented in this encounter Plan of Treatment Not on file documented as of this encounter Visit Diagnoses Diagnosis Embolism Pulmonary Septic (HCC)- Primary Hematoma Of Soft Tissue Nontraumatic Inferior Vena Cava Filter Hypertension Essential Primary documented in this encounter Additional Health Concerns AssessmentNoted TimePHQ-9 Depression Total Score: 1:04 PM CDT documented as of this encounter Care Teams Team MemberRelationshipSpecialtyStart DateEnd Date Elsewhere, Pcp PCP - GeneralFamily Medicine03/23/21documented as of this encounter
--- OUTSIDE RECORDS SUMMARY | 2025-05-18 13:30 | XMS_ITS | Encounter Summary ---
Author Organization [facility] Address [address] [place] [address] Care Team Providers Care Feeder Worker Power Unit Operator Name Role Phone Elsewhere, Pcp Primary Care Provider Unavailabl e Reason for Referral * Outpatient (Routine) - ClosedSpecialtyDiagnoses / ProceduresReferred By ContactReferred To ContactVascular Medicine Andre Garcia M.D. [address] [place] [address] Phone: tel: fax: [facility] Referral IDStatusReasonStart DateExpiration DateVisits RequestedVisits [id number]/17/20255/19/202711 SORSHIP MANAGER * Outpatient (Routine) - ClosedSpecialtyDiagnoses / ProceduresReferred By ContactReferred To Contact Diagnoses Raynaud's Disease Hypertension Essential Primary Atrial Fibrillation Unspecified (HCC) Embolism Pulmonary Septic (HCC) Procedures US Lower Extremity Veins Bilateral Andre Garcia M.D. [address] [place] [address] Phone: tel: fax: [facility] Referral IDStatusReasonStart DateExpiration DateVisits RequestedVisits [id number]/17/20252/17/202711 SORSHIP MANAGER Reason for Visit * Outpatient (Routine) - ClosedSpecialtyDiagnoses / ProceduresReferred By ContactReferred To ContactVascular Medicine Andre Garcia M.D. [address] [place] [address] Phone: tel: fax: [facility] Referral IDStatusReasonStart DateExpiration DateVisits RequestedVisits [id number]/7/20254/ Encounter Details DateTypeDepartmentCare Team (Latest Contact Info)Igmopniatxp62/17/2025 1:30 PM CSTVirtual Visit Department of Vascular Medicine in [place], [place] [address] [place] [phone] Andre Garcia M.D. [address] [place] [phone] Raynaud's Disease (Primary Dx); Hypertension Essential Primary; Atrial Fibrillation Unspecified (HCC); Embolism Pulmonary Septic (HCC) Social History Tobacco UseTypesPacks/DayYears UsedDateSmoking Tobacco: [id number] - 1976CigarsPassive Smoke Exposure: PastSmokeless Tobacco: NeverAlcohol [...] completed or the highest degree you have received?Elvmbzocy10/16/2022Sex and Gender Information ValueDate RecordedSex Assigned at LcfdtIlks25/07/2018 1:03 PM CDTLegal SexMale 08/03/2016 5:25 PM CSTGender AatljmkwMqmy74/07/2018 1:03 PM CDTSexual LzhddzsyyxbAfndckxa44/07/2018 1:03 PM CDTdocumented as of this encounter Progress Notes * Andre Garcia M.D. - 05/18/2025 1:30 PM CST ASSESSMENT PLAN #1 Left thigh fluid collection #2 Remote bilateral calf DVT and pulmonary embolism #3 Atrial fibrillation, CHADS2 Vasc score 3 #4 Multiple hip arthroplasty procedures with revisions. #5 Acute left femoral DVT #6 Retrievable IVC filter #7 Large PFO with bidirectional shunt. #8 Left soleal DVT #9 Lung nodules #10 Coronary artery disease #11 Exertional dyspnea Telephone call follow up. US imaging was reviewed (05/14/2025) was unchanged. Right Soleal DVT unchanged. Left Soleal Veins aging, incompletely recanalized thrombus unchanged. Left Posterior Tibial indeterminate DVT unchanged. Recommendations: Repeat US leg veins in 1 week. I will see him again afterwards. He is concerned regarding hypertension management. BP at home 135/80's. Recommendations: Amlodipine 2.5 mg daily 6 hour BP assessment. Regarding Raynaud's syndrome Recommendations: Amlodipine 2.5 mg daily. I will see him again in one week for follow up. Total time 15 minutes. Julio SORSHIP MANAGER documented in this encounter Plan of Treatment NameTypePriorityAssociated DiagnosesOrder ScheduleVascular Medicine office visit (clinic)Outpatient ReferralRoutineExpected: 05/25/2025, Expires: 08/18/2026 documented as of this encounter Results * NEP Blood pressure check 6 hr (06/01/2025 7:59 AM SPONSORSHIP MANAGER)Specimen (Source) Anatomical Location / LateralityCollection Method / VolumeCollection Time Received Time Narrative Authorizing ProviderResult TypeResult StatusRobert Rony Garcia M.D.PFT ORDERABLES Final ResultPerforming OrganizationAddressCity/State/ZIP CodePhone Number MMODAL NA * US Lower Extremity Veins Bilateral (05/29/2025 3:01 PM SPONSORSHIP MANAGER)Anatomical Region LateralityModalityLower Extremity, Ultrasound RST LOS, Ultrasound ARZ LOS, Ultrasound FLA LOSBilateralUltrasoundSpecimen (Source)Anatomical Location / LateralityCollection Method / VolumeCollection TimeReceived Time Impressions 05/29/2025 3:12 PM SPONSORSHIP MANAGER Possible slight propagation of thrombus involving clot within the left soleal vein, which is now noted within more posterior branches of the vessel. Otherwise, similar appearance of subacute DVT within the right soleal vein and age-indeterminate DVT within the left posterior tibial vein. Negative for thrombus above the knee bilaterally. Narrative 05/29/2025 3:12 PM SPONSORSHIP MANAGER EXAM: US LOWER EXTREMITY VEINS BILATERAL Exam performed with color and spectral Doppler analysis. COMPARISON: Ultrasound 05/14/2025 and 05/08/2025 FINDINGS: RIGHT: Common Femoral Vein: Negative. Profunda Femoral Vein: Negative. Femoral Vein: Negative. Popliteal Vein: Chronic post thrombotic changes. Gastrocnemius Veins: Negative where seen. Soleal Veins: Subacute DVT. Posterior Tibial Veins: Negative where seen. Peroneal Veins: Negative where seen. Great Saphenous Vein: Negative where seen. Small Saphenous Vein: Not Evaluated. Popliteal Fossa: Negative. Other: n/a LEFT: Common Femoral Vein: Negative. Profunda Femoral Vein: Negative. Femoral Vein: Negative. Popliteal Vein: Negative. Gastrocnemius Veins: Negative where seen. Soleal Veins: Possible slight propagation of thrombus involving clot within the left soleal vein, which is now noted within more posterior branches of the vessel. Posterior Tibial Veins: Age indeterminate DVT. Peroneal Veins: Negative where seen. Great Saphenous Vein: Negative where seen. Small Saphenous Vein: Not Evaluated. Popliteal Fossa: Negative. Other: Redemonstration of a large, complex, avascular fluid collection within the left thigh, more fully evaluated on CT 05/14/2025. Prominent lymph nodes within the medial aspect of the thigh measuring up to approximately 1.4 cm in short axis. Information on venous thrombosis and management can be found on the [employer] site. Link [email or web address]/clinical-answers/[email or web address]/[email or web address] Procedure Note Tim Brooke M.D. - 05/29/2025 EXAM: US LOWER EXTREMITY VEINS BILATERAL Exam performed with color and spectral Doppler analysis. COMPARISON: Ultrasound 05/14/2025 and 05/08/2025 FINDINGS: RIGHT: Common Femoral Vein: Negative. Profunda Femoral Vein: Negative. Femoral Vein: Negative. Popliteal Vein: Chronic post thrombotic changes. Gastrocnemius Veins: Negative where seen. Soleal Veins: Subacute DVT. Posterior Tibial Veins: Negative where seen. Peroneal Veins: Negative where seen. Great Saphenous Vein: Negative where seen. Small Saphenous Vein: Not Evaluated. Popliteal Fossa: Negative. Other: n/a LEFT: Common Femoral Vein: Negative. Profunda Femoral Vein: Negative. Femoral Vein: Negative. Popliteal Vein: Negative. Gastrocnemius Veins: Negative where seen. Soleal Veins: Possible slight propagation of thrombus involving clotwithin the left soleal vein, which is now noted within more posteriorbranches of the vessel. Posterior Tibial Veins: Age indeterminate DVT. Peroneal Veins: Negative where seen. Great Saphenous Vein: Negative where seen. Small Saphenous Vein: Not Evaluated. Popliteal Fossa: Negative. Other: Redemonstration of a large, complex, avascular fluid collectionwithin the left thigh, more fully evaluated on CT 05/14/2025. Prominentlymph nodes within the medial aspect of the thigh measuring up toapproximately 1.4 cm in short axis. Information on venous thrombosis and management can be found on theAskMayoExpert site. [email or web address]/clinical-answers/[email or web address]/ [email or web address] IMPRESSION: Possible slight propagation of thrombus involving clot within the leftsoleal vein, which is now noted within more posterior branches of thevessel. Otherwise, similar appearance of subacute DVT within the rightsoleal vein and age- indeterminate DVT within the left posterior tibialvein. Negative for thrombus above the knee bilaterally. Authorizing ProviderResult TypeResult StatusRobert Rony Garcia M.D.IMG US PROCEDURESFinal Result documented in this encounter Visit Diagnoses Diagnosis Raynaud's Disease- Primary Hypertension Essential Primary Atrial Fibrillation Unspecified (HCC) Embolism Pulmonary Septic (HCC) Raynaud's Disease Hypertension Essential Primary Atrial Fibrillation Unspecified (HCC) Embolism Pulmonary Septic (HCC) documented in this encounter Additional Health Concerns AssessmentNoted TimePHQ-9 Depression Total Score: 1:04 PM CDT documented as of this encounter Care Teams Team MemberRelationshipSpecialtyStart DateEnd Date Elsewhere, Pcp PCP - GeneralFamily Medicine03/23/21documented as of this encounter
--- OUTSIDE RECORDS SUMMARY | 2025-05-29 13:36 | XMS_ITS | Encounter Summary ---
Author Organization [facility] Address [address] [place] [address] Care Team Providers Care Blow Mold Machine Operator Name Role Phone Elsewhere, Pcp Primary Care Provider Unavailabl e Reason for Referral * Outpatient (Routine) - ClosedSpecialtyDiagnoses / ProceduresReferred By ContactReferred To Contact Diagnoses Raynaud's Disease Hypertension Essential Primary Atrial Fibrillation Unspecified (HCC) Embolism Pulmonary Septic (HCC) Procedures US Lower Extremity Veins Bilateral Andre Garcia M.D. [address] [place] [address] Phone: tel: fax: [facility] Referral IDStatusReasonStart DateExpiration DateVisits RequestedVisits [id number]/17/20252/ ACE CLERK Reason for Visit * Outpatient (Routine) - ClosedSpecialtyDiagnoses / ProceduresReferred By ContactReferred To Contact Diagnoses Raynaud's Disease Hypertension Essential Primary Atrial Fibrillation Unspecified (HCC) Embolism Pulmonary Septic (HCC) Procedures US Lower Extremity Veins Bilateral Andre Garcia M.D. [address] [place] [address] Phone: tel: fax: [facility] Referral IDStatusReasonStart DateExpiration DateVisits RequestedVisits [id number]/17/20252/ Encounter Details DateTypeDepartmentCare Team (Latest Contact Info)Vyuvmotaqdb35/28/2025 1:36 PM FURNACE CLERK - 05/29/2025 11:59 PM CSTHospital Encounter Department of Radiology, [facility], in [place], [place] [address] [place] [address] Andre Garcia M.D. [address] [place] [address] Raynaud's Disease; Hypertension Essential Primary; Atrial Fibrillation Unspecified (HCC); Embolism Pulmonary Septic (HCC) Discharge Disposition: Home or Self Care Social History Tobacco UseTypesPacks/DayYears UsedDateSmoking Tobacco: [id number] - 1976CigarsPassive Smoke Exposure: PastSmokeless Tobacco: NeverAlcohol [...] completed or the highest degree you have received?Iscpkptug56/16/2022ex and Gender Information ValueDate RecordedSex Assigned at XllefMrny77/07/2018 1:03 PM CDTLegal SexMale 08/03/2016 5:25 PM CSTGender DvltyuqtBfvi57/07/2018 1:03 PM CDTSexual AlcecywlmsxWcygygxu31/07/2018 1:03 PM CDTdocumented as of this encounter [...] tablet Take 50 mg by mouth as needed.02/28/2022 amLODIPine (Norvasc) 2.5 mg tablet Take 1 tablet (2.5 mg total) by mouth daily. 30 tablet 5108/04/2024documented as of this encounter Plan of Treatment Not on file documented as of this encounter Procedures Procedure NamePriorityDate/TimeAssociated DiagnosisCommentsUS LOWER EXTREMITY VEINS BILATERALRAD - Routine (most inpatients and all outpatients)05/29/2025 3:01 PM FURNACE CLERK Raynaud's Disease Hypertension Essential Primary Atrial Fibrillation Unspecified (HCC) Embolism Pulmonary Septic (HCC) documented in this encounter Results * US Lower Extremity Veins Bilateral (05/29/2025 3:01 PM FURNACE CLERK)Anatomical Region LateralityModalityLower Extremity, Ultrasound RST LOS, Ultrasound ARZ LOS, Ultrasound FLA LOSBilateralUltrasoundSpecimen (Source)Anatomical Location / LateralityCollection Method / VolumeCollection TimeReceived Time Impressions 05/29/2025 3:12 PM FURNACE CLERK Possible slight propagation of thrombus involving clot within the left soleal vein, which is now noted within more posterior branches of the vessel. Otherwise, similar appearance of subacute DVT within the right soleal vein and age-indeterminate DVT within the left posterior tibial vein. Negative for thrombus above the knee bilaterally. Narrative 05/29/2025 3:12 PM FURNACE CLERK EXAM: US LOWER EXTREMITY VEINS BILATERAL Exam [...] and management can be found on the [employer] site. Link [email or web address]/topic/clinical-answers/[id number]/[email or web address] [id number] Procedure Note Tim Brooke M.D. - 05/29/2025 [...] thrombosis and management can be found on theRyla site. Linkhttps://[email or web address].[email or web address]/topic/clinical-answers/[email or web address]/miguel [email or web address] IMPRESSION: Possible slight propagation of thrombus involving clot within the leftsoleal vein, which is now noted within more posterior branches of thevessel. Otherwise, similar appearance of subacute DVT within the rightsoleal vein and age- indeterminate DVT within the left posterior tibialvein. Negative for thrombus above the knee bilaterally. Authorizing ProviderResult TypeResult StatusRobert Rony REYNA US PROCEDURESFinal Result documented in this encounter Visit Diagnoses Diagnosis Raynaud's Disease Hypertension Essential Primary Atrial Fibrillation Unspecified (HCC) Embolism Pulmonary Septic (HCC) documented in this encounter Additional Health Concerns AssessmentNoted TimePHQ-9 Depression Total Score: 1:04 PM CDT documented as of this encounter Care Teams Team MemberRelationshipSpecialtyStart DateEnd Date Elsewhere, Pcp PCP - GeneralFamily Medicine03/23/21documented as of this encounter
--- OUTSIDE RECORDS SUMMARY | 2025-05-29 14:00 | XMS_ITS | Encounter Summary ---
Author Organization [facility] Address [address] [place] [address] Care Team Providers Care Lead Technical Architect Name Role Phone Elsewhere, Pcp Primary Care Provider Unavailabl e Encounter Details DateTypeDepartmentCare Team (Latest Contact Info)Nrufwrdplwz47/28/2025 2:00 PM CSTDiagnostic Division of Nephrology and Hypertension in [place], [place] [address] [place] [address] Andre Garcia M.D. [address] [place] [address] Stacia Odonnell Raynaud's Disease; Hypertension Essential Primary; Atrial Fibrillation Unspecified (HCC); Embolism Pulmonary Septic (HCC) Social History Tobacco UseTypesPacks/DayYears UsedDateSmoking Tobacco: [id number] - 1976CigarsPassive Smoke Exposure: PastSmokeless Tobacco: NeverAlcohol [...] RecordedIn the past 12 months has the [employer], gas, oil, or water [employer] threatened to shut off services in your home?No01/27/2025Housing StabilityAnswerDate RecordedWhat is your living situation today?I have a steady place to live01/27/2025Education AnswerDate RecordedWhat is the highest level of school you have completed or the highest degree you have received?Kfpnafubb57/16/2022ex and Gender Information ValueDate RecordedSex Assigned at ZikanWlse78/07/2018 1:03 PM CDTLegal SexMale 08/03/2016 5:25 PM CSTGender RvnqpggpUkfj42/07/2018 1:03 PM CDTSexual PcqulngxwjfHgakxzzo66/07/2018 1:03 PM CDTdocumented as of this encounter Plan of Treatment Not on file documented as of this encounter Procedures Procedure NamePriorityDate/TimeAssociated DiagnosisCommentsNEP BLOOD PRESSURE CHECK 6 RYAlojsaq34/01/2025 7:59 AM THERMOSPRAY OPERATOR Raynaud's Disease Hypertension Essential Primary Atrial Fibrillation Unspecified (HCC) Embolism Pulmonary Septic (HCC) documented in this encounter Results * NEP Blood pressure check 6 hr (06/01/2025 7:59 AM THERMOSPRAY OPERATOR)Specimen (Source) Anatomical Location / LateralityCollection Method / VolumeCollection Time Received Time Narrative Authorizing ProviderResult TypeResult StatusRobert Rony Garcia M.D.PFT ORDERABLES Final ResultPerforming OrganizationAddressCity/State/ZIP CodePhone Number MMODAL NA documented in this encounter Visit Diagnoses [...]
--- OUTSIDE RECORDS SUMMARY | 2025-06-03 11:00 | XMS_ITS | Encounter Summary ---
Author Organization [facility] Address [address] [place] [address] Care Team Providers Care Toilet Products Molder Name Role Phone Elsewhere, Pcp Primary Care Provider Unavailabl e Reason for Referral * Outpatient (Routine) - ClosedSpecialtyDiagnoses / ProceduresReferred By ContactReferred To ContactVascular Medicine Andre Garcia M.D. [address] [place] [address] Phone: tel: fax: [facility] Referral IDStatusReasonStart DateExpiration DateVisits RequestedVisits [id number]/3/20256/4/202711 IST ENZYMES * Outpatient (Routine) - ClosedSpecialtyDiagnoses / ProceduresReferred By ContactReferred To Contact Diagnoses Acute Embolism And Thrombosis Of Left Femoral Vein (HCC) Procedures US Lower Extremity Veins Bilateral Andre Garcia M.D. [address] [place] [address] Phone: tel: fax: [facility] Referral IDStatusReasonStart DateExpiration DateVisits RequestedVisits [id number]/3/20253/5/202711 IST ENZYMES Reason for Visit * Outpatient (Routine) - ClosedSpecialtyDiagnoses / ProceduresReferred By ContactReferred To ContactVascular Medicine Andre Garcia M.D. [address] [place] [address] Phone: tel: fax: [facility] Referral IDStatusReasonStart DateExpiration DateVisits RequestedVisits [id number]/17/20255/ Encounter Details DateTypeDepartmentCare Team (Latest Contact Info)Aunfhkoxshm36/03/2025 11:00 AM CSTOffice Visit Department of Vascular Medicine in [place], [place] [address] [place] [phone] Andre Garcia M.D. [address] [place] [phone] Acute Embolism And Thrombosis Of Left Femoral Vein (HCC) (Primary Dx) Social History Tobacco UseTypesPacks/DayYears UsedDateSmoking Tobacco: [id number] - 1977CigarsPassive Smoke Exposure: PastSmokeless Tobacco: NeverAlcohol Use Standard [...] RecordedIn the past 12 months has the [employer], gas, oil, or water [employer] threatened to shut off services in your home?No01/27/2025Housing StabilityAnswerDate RecordedWhat is your living situation today?I have a steady place to live01/27/2025Education AnswerDate RecordedWhat is the highest level of school you have completed or the highest degree you have received?Jzzsictrz70/16/2022ex and Gender Information ValueDate RecordedSex Assigned at HsnraNhtw72/07/2018 1:03 PM CDTLegal SexMale 08/03/2016 5:25 PM CSTGender AtivuveqUaky29/07/2018 1:03 PM CDTSexual SfjhchadrqsEllaqbgs60/07/2018 1:03 PM CDTdocumented as of this encounter Last Filed Vital Signs Vital SignReadingTime TakenCommentsBlood Jedbzqqa879/4219306/03/2025 10:41 AM CHEMIST ENZYMES Dghbw116406/03/2025 10:41 AM CSTTemperature--Respiratory Rate--Oxygen Saturation-- Inhaled Oxygen Concentration--Llqcvd37.9 kg (202 lb 9.6 oz)06/03/2025 10:33 AM DDXOuxjuc336.5 cm (5' 11.85)06/03/2025 10:33 AM CSTBody Mass Index27.59 06/03/2025 10:33 AM CSTdocumented in this encounter Progress Notes * Andre Garcia M.D. - 06/03/2025 11:00 AM CST ASSESSMENT / PLAN #1 Left thigh fluid collection #2 Remote bilateral calf DVT and pulmonary embolism #3 Atrial fibrillation, CHADS2 Vasc score 3 #4 Multiple hip arthroplasty procedures with revisions. #5 Acute left femoral DVT #6 Retrievable IVC filter #7 Large PFO with bidirectional shunt. #8 Left soleal DVT #9 Lung nodules #10 Coronary artery disease #11 Exertional dyspnea The ambulatory BP monitoring was reviewed. The average BP was 128/70 with pulse 58. These are very acceptable and satisfactory. No changes to anti-hypertension strategy is warranted. US imaging of the leg veins revealed possible slight propagation of left soleal DVT. The right soleal and left posterior tibial DVT are not changed. Recommendations: Repeat US in one week. Clinical follow up visit with me at that time. No change to BP regimen. These issues were discussed in detail and all questions answered. Total time 25 minutes. Andre Garcia II, MD IST ENZYMES documented in this encounter Plan of Treatment NameTypePriorityAssociated DiagnosesOrder ScheduleVascular Medicine office visit (clinic)Outpatient ReferralRoutineExpected: 06/10/2025, Expires: 09/01/2026 documented as of this encounter Results * US Lower Extremity Veins Bilateral (06/11/2025 2:22 PM CHEMIST ENZYMES)Anatomical Region LateralityModalityLower Extremity, Ultrasound RST LOS, Ultrasound ARZ LOS, Ultrasound FLA LOSBilateralUltrasoundSpecimen (Source)Anatomical Location / LateralityCollection Method / VolumeCollection TimeReceived Time Impressions 06/11/2025 2:29 PM CHEMIST ENZYMES No substantial change since 05/29/2025. Aging, incompletely recanalized thrombus within the calf veins bilaterally. Narrative 06/11/2025 2:29 PM CHEMIST ENZYMES EXAM: US LOWER EXTREMITY VEINS BILATERAL Exam performed with color and spectral Doppler analysis. COMPARISON: Ultrasound 05/21/2025 FINDINGS: RIGHT: Common Femoral Vein: Negative. Profunda Femoral Vein: Negative. Femoral Vein: Negative. Popliteal Vein: Chronic post thrombotic changes. Gastrocnemius Veins: Negative where seen. Soleal Veins: Aging, incompletely recanalized thrombus. Posterior Tibial Veins: Negative where seen. Peroneal Veins: Negative where seen. Great Saphenous Vein: Negative where seen. Small Saphenous Vein: Not Evaluated. Popliteal Fossa: Negative. Other: n/a LEFT: Common Femoral Vein: Negative. Profunda Femoral Vein: Negative. Femoral Vein: Negative. Popliteal Vein: Negative. Gastrocnemius Veins: Negative where seen. Soleal Veins: Aging, incompletely recanalized thrombus. Posterior Tibial Veins: Age Indeterminate DVT. Peroneal Veins: Negative where seen. Great Saphenous Vein: Negative where seen. Small Saphenous Vein: Not Evaluated. Popliteal Fossa: Negative. Other: Partially visualized hematoma within the left thigh measuring up to at least 20 cm in greatest dimension, more fully evaluated on CT 05/14/2025. Prominent lymph nodes within the endometrial reactive. Information on venous thrombosis and management can be found on the [place] site. Link [email or web address] Procedure Note Tim Brooke M.D. - 06/11/2025 EXAM: US LOWER EXTREMITY VEINS BILATERAL Exam performed with color and spectral Doppler analysis. COMPARISON: Ultrasound 05/21/2025 FINDINGS: RIGHT: Common Femoral Vein: Negative. Profunda Femoral Vein: Negative. Femoral Vein: Negative. Popliteal Vein: Chronic post thrombotic changes. Gastrocnemius Veins: Negative where seen. Soleal Veins: Aging, incompletely recanalized thrombus. Posterior Tibial Veins: Negative where seen. Peroneal Veins: Negative where seen. Great Saphenous Vein: Negative where seen. Small Saphenous Vein: Not Evaluated. Popliteal Fossa: Negative. Other: n/a LEFT: Common Femoral Vein: Negative. Profunda Femoral Vein: Negative. Femoral Vein: Negative. Popliteal Vein: Negative. Gastrocnemius Veins: Negative where seen. Soleal Veins: Aging, incompletely recanalized thrombus. Posterior Tibial Veins: Age Indeterminate DVT. Peroneal Veins: Negative where seen. Great Saphenous Vein: Negative where seen. Small Saphenous Vein: Not Evaluated. Popliteal Fossa: Negative. Other: Partially visualized hematoma within the left thigh measuring up toat least 20 cm in greatest dimension, more fully evaluated on CT05/14/2025. Prominent lymph nodes within the endometrial reactive. Information on venous thrombosis and management can be found on the[place] site. [email or web address] IMPRESSION: No substantial change since 05/29/2025. Aging, incompletely recanalizedthrombus within the calf veins bilaterally. Authorizing ProviderResult TypeResult StatusRobdean REYNA PROCEDURESFinal Result documented in this encounter Visit Diagnoses Diagnosis Acute Embolism And Thrombosis Of Left Femoral Vein (HCC)- Primary Acute Embolism And Thrombosis Of Left Femoral Vein (HCC) documented in this encounter Additional Health Concerns AssessmentNoted TimePHQ-9 Depression Total Score: 1:04 PM CDT documented as of this encounter Care Teams Team MemberRelationshipSpecialtyStart DateEnd Date Elsewhere, Pcp PCP - GeneralFamily Medicine03/23/21documented as of this encounter
--- OUTSIDE RECORDS SUMMARY | 2025-06-11 12:02 | XMS_ITS | Encounter Summary ---
Author Organization [facility] Address [address] [place] [address] Care Team Providers Care Audio Operator Name Role Phone Elsewhere, Pcp Primary Care Provider Unavailabl e Reason for Referral * Outpatient (Routine) - ClosedSpecialtyDiagnoses / ProceduresReferred By ContactReferred To Contact Diagnoses Acute Embolism And Thrombosis Of Left Femoral Vein (HCC) Procedures US Lower Extremity Veins Bilateral Andre Garcia M.D. [address] [place] [address] Phone: tel: fax: [facility] Referral IDStatusReasonStart DateExpiration DateVisits RequestedVisits [id number]/3/20253/5/202711 IAL SERVICE OFFICER Reason for Visit * Outpatient (Routine) - ClosedSpecialtyDiagnoses / ProceduresReferred By ContactReferred To Contact Diagnoses Acute Embolism And Thrombosis Of Left Femoral Vein (HCC) Procedures US Lower Extremity Veins Bilateral Andre Garcia M.D. [address] [place] [address] Phone: tel: fax: [facility] Referral IDStatusReasonStart DateExpiration DateVisits RequestedVisits [id number]/3/20253/5/202711 Encounter Details DateTypeDepartmentCare Team (Latest Contact Info)Zauwbjeysnr71/11/2025 12:02 PM SPECIAL SERVICE OFFICER - 06/11/2025 11:59 PM CSTHospital Encounter Department of Radiology, [facility], in [place], [place] [address] [place] [address] Andre Garcia M.D. [address] [place] [address] Acute Embolism And Thrombosis Of Left Femoral Vein (HCC) Discharge Disposition: Home or Self Care Social History Tobacco UseTypesPacks/DayYears UsedDateSmoking Tobacco: [id number] - 1976CigarsPassive Smoke Exposure: PastSmokeless Tobacco: NeverAlcohol [...] completed or the highest degree you have received?Cqetczwle28/16/2022ex and Gender Information ValueDate RecordedSex Assigned at BuoptPgam60/07/2018 1:03 PM CDTLegal SexMale 08/03/2016 5:25 PM CSTGender BfxihplmYjtz57/07/2018 1:03 PM CDTSexual XhnmewujjhpWdcpkqbd06/07/2018 1:03 PM CDTdocumented as of this encounter [...] BILATERALRAD - Routine (most inpatients and all outpatients)06/11/2025 2:22 PM SPECIAL SERVICE OFFICER Acute Embolism And Thrombosis Of Left Femoral Vein (HCC) documented in this encounter Results * US Lower Extremity Veins Bilateral (06/11/2025 2:22 PM SPECIAL SERVICE OFFICER)Anatomical Region LateralityModalityLower Extremity, Ultrasound RST LOS, Ultrasound ARZ LOS, Ultrasound FLA LOSBilateralUltrasoundSpecimen (Source)Anatomical Location / LateralityCollection Method / VolumeCollection TimeReceived Time Impressions 06/11/2025 2:29 PM SPECIAL SERVICE OFFICER No substantial change since 05/29/2025. Aging, incompletely recanalized thrombus within the calf veins bilaterally. Narrative 06/11/2025 2:29 PM SPECIAL SERVICE OFFICER EXAM: US LOWER EXTREMITY VEINS BILATERAL Exam [...] and management can be found on the [place] site. Link [email or web address] Procedure Note Tim Brooke M.D. - 06/11/2025 [...] management can be found on theAskMayoExpert site. [email or web address] IMPRESSION: No substantial change since 05/29/2025. Aging, incompletely recanalizedthrombus within the calf veins bilaterally. Authorizing ProviderResult TypeResult StatusRobert Rony REYNA [...]
--- OUTSIDE RECORDS SUMMARY | 2025-06-12 10:00 | XMS_ITS | Encounter Summary ---
Author Organization [facility] Address [address] [place] [address] Care Team Providers Care Web Engineer Name Role Phone Elsewhere, Pcp Primary Care Provider Unavailabl e Reason for Referral * Outpatient (Routine) - AuthorizedSpecialtyDiagnoses / ProceduresReferred By ContactReferred To ContactVascular Medicine Andre Garcia M.D. 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 [address] [place] [address] Phone: tel: fax: [facility] Referral IDStatusReasonStart DateExpiration DateVisits RequestedVisits [id number]/12/20253/ RAISER Reason for Visit * Outpatient (Routine) - ClosedSpecialtyDiagnoses / ProceduresReferred By ContactReferred To ContactVascular Medicine Andre Garcia M.D. [address] [place] [address] Phone: tel: fax: [facility] Referral IDStatusReasonStart DateExpiration DateVisits RequestedVisits [id number]/3/20256/4/202711 Encounter Details DateTypeDepartmentCare Team (Latest Contact Info)Ongdzymlskx29/12/2025 10:00 AM CSTVirtual Visit Department of Vascular Medicine in [place], [place] [address] [place] [address] Andre Garcia M.D. [address] [place] [phone] Patent Foramen [place] (HCC) (Primary Dx); Atrial Fibrillation Unspecified (HCC); Bleeding Disorder (HCC); Hypertension Essential Primary; Atherosclerotic Heart Disease [place] 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) Social History Tobacco UseTypesPacks/DayYears UsedDateSmoking Tobacco: [id number] - 1977CigarsPassive Smoke Exposure: PastSmokeless Tobacco: NeverAlcohol [...] RecordedIn the past 12 months has the [employer], gas, oil, or water company threatened to shut off services in your home?No01/27/2025Housing StabilityAnswerDate RecordedWhat is your living situation today?I have a steady place to live01/27/2025Education AnswerDate RecordedWhat is the highest level of school you have completed or the highest degree you have received?Nuuslyblk78/16/2022ex and Gender Information ValueDate RecordedSex Assigned at FjvysOgvl57/07/2018 1:03 PM CDTLegal SexMale 08/03/2016 5:25 PM CSTGender DqjpcoomLwkq88/07/2018 1:03 PM CDTSexual XtdebkrschfLrzjjtzi50/07/2018 1:03 PM CDTdocumented as of this encounter Progress Notes * Andre Garcia M.D. - 06/12/2025 10:00 AM CST ASSESSMENT PLAN #1 Left thigh fluid collection #2 Remote bilateral calf DVT and pulmonary embolism #3 Atrial fibrillation, CHADS2 Vasc score 3 #4 Multiple hip arthroplasty procedures with revisions. #5 Acute left femoral DVT #6 Retrievable IVC filter #7 Large PFO with bidirectional shunt. #8 Left soleal DVT #9 Lung nodules #10 Coronary artery disease #11 Exertional dyspnea Telephone follow up. US evaluation was reviewed. No substantial change since 05/29/2025. Aging, incompletely recanalizedthrombus within the calf veins bilaterally. He has had imaging done at his local clinic which revealed some degree of carotid disease. He is asymptomatic from this perspective. Recommendations: Follow up with me in 3 months. If no intercurrent events, we could consider IVC filter removal at that time. Carotid ultrasound for assessment of carotid plaque. I will see him back after the carotid US. These issues were discussed in detail and all questions answered. Total time 15 minutes. Andre Garcia II, MD RAISER documented in this encounter Plan of Treatment NameTypePriorityAssociated DiagnosesOrder ScheduleVascular Medicine office visit (clinic)Outpatient ReferralRoutineExpected: 06/17/2025, Expires: 09/10/2026 documented as of this encounter Results * US Carotid Bilateral (06/19/2025 12:28 PM BEE RAISER)Anatomical RegionLaterality ModalityHead and Neck, Ultrasound RST LOS, Ultrasound ARZ LOS, Neuroradiology FLA LOS, Procedural, VascularInterventional NWWI LOSBilateralUltrasound Specimen (Source)Anatomical Location / LateralityCollection Method / Volume Collection TimeReceived Time Impressions 06/19/2025 12:49 PM BEE RAISER No significant stenosis in the carotid arteries bilaterally. Narrative 06/19/2025 12:49 PM BEE RAISER EXAM: US CAROTID BILATERAL Exam performed with color and spectral Doppler analysis. COMPARISON: Outside CT angiogram of the chest, abdomen, pelvis, bilateral lower extremities. FINDINGS: RIGHT: Mild calcified atheromatous plaque in the carotid bifurcation. Doppler evaluation shows no evidence of significant ICA, ECA, or CCA stenosis. Normal flow direction in the vertebral artery. LEFT: Mild calcified atheromatous plaque in the carotid bifurcation. Doppler evaluation shows no evidence of significant ICA, ECA, or CCA stenosis. Normal flow direction in the vertebral artery. VELOCITIES (cm/sec) Right CCA *psv: 60 cm/s Right ICA psv: 66 cm/s Right ICA edv: 23 cm/s Right ECA psv: 50 cm/s Right ICA/CCA: 1.1 Left CCA *psv: 61 cm/s Left ICA psv: 54 cm/s Left ICA edv: ??20 cm/s Left ECA psv: ??59 cm/s Left ICA/CCA: 0.9 *mid/distal (non-diseased) Measurement of a carotid stenosis, if present, is based on velocity parameters that compare the residual internal carotid luminal diameter with that of the normal distal ICA in accordance with [place] Symptomatic Carotid Endarterectomy Trial (NASCET). Procedure Note Chet Degroot M.D. - 06/19/2025 EXAM: US CAROTID BILATERAL Exam performed with color and spectral Doppler analysis. COMPARISON: Outside CT angiogram of the chest, abdomen, pelvis, bilaterallower extremities. FINDINGS: RIGHT: Mild calcified atheromatous plaque in the carotid bifurcation.Doppler evaluation shows no evidence of significant ICA, ECA, or CCAstenosis. Normal flow direction in the vertebral artery. LEFT: Mild calcified atheromatous plaque in the carotid bifurcation.Doppler evaluation shows no evidence of significant ICA, ECA, or CCAstenosis. Normal flow direction in the vertebral artery. VELOCITIES (cm/sec) Right CCA *psv: 60 cm/s Right ICA psv: 66 cm/s Right ICA edv: 23 cm/s Right ECA psv: 50 cm/s Right ICA/CCA: 1.1 Left CCA *psv: 61 cm/s Left ICA psv: 54 cm/s Left ICA edv: 20 cm/s Left ECA psv: 59 cm/s Left ICA/CCA: 0.9 *mid/distal (non-diseased) Measurement of a carotid stenosis, if present, is based on velocityparameters that compare the residual internal carotid luminal diameterwith that of the normal distal ICA in accordance with North AmericanSymptomatic Carotid Endarterectomy Trial (NASCET). IMPRESSION: No significant stenosis in the carotid arteries bilaterally. 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)- Primary Atrial Fibrillation Unspecified (HCC) Bleeding Disorder (HCC) Hypertension Essential Primary Atherosclerotic Heart Disease [place] 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) Patent Foramen [place] (HCC) Atrial Fibrillation Unspecified (HCC) Bleeding Disorder (HCC) Hypertension Essential Primary Atherosclerotic Heart Disease [place] 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) documented in this encounter Additional Health Concerns AssessmentNoted TimePHQ-9 Depression Total Score: 1:04 PM CDT documented as of this encounter Care Teams Team MemberRelationshipSpecialtyStart DateEnd Date Elsewhere, Pcp PCP - GeneralFamily Medicine03/23/21documented as of this encounter
--- OUTSIDE RECORDS SUMMARY | 2025-06-19 11:42 | XMS_ITS | Encounter Summary ---
Author Organization [facility] Address [address] [place] [address] Care Team Providers Care Magazine Writer Name Role Phone Elsewhere, Pcp Primary Care Provider Unavailabl e Reason for Referral * Outpatient (Routine) - ClosedSpecialtyDiagnoses / ProceduresReferred By ContactReferred To Contact Diagnoses Patent Foramen [place] (HCC) Atrial Fibrillation Unspecified (HCC) Bleeding Disorder (HCC) Hypertension Essential Primary Atherosclerotic Heart Disease [place] 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) Procedures US Carotid Bilateral Andre Garcia M.D. [address] [place] [address] Phone: tel: fax: [facility] Referral IDStatusReasonStart DateExpiration DateVisits RequestedVisits [id number]/12/20253/ CIATE PROFESSOR OF LAW Reason for Visit * Outpatient (Routine) - ClosedSpecialtyDiagnoses / ProceduresReferred By ContactReferred To Contact Diagnoses Patent Foramen [place] (HCC) Atrial Fibrillation Unspecified (HCC) Bleeding Disorder (HCC) Hypertension Essential Primary Atherosclerotic Heart Disease [place] 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) Procedures US Carotid Bilateral Andre Garcia M.D. [address] [place] [address] Phone: tel: fax: [facility] Referral IDStatusReasonStart DateExpiration DateVisits RequestedVisits [id number]/12/20253/ Encounter Details DateTypeDepartmentCare Team (Latest Contact Info)Zquvnawdmhj29/19/2025 11:42 AM ASSOCIATE PROFESSOR OF LAW - 06/19/2025 11:59 PM CSTHospital Encounter Department of Radiology, [facility], in [place], [place] [address] [place] [address] Andre Garcia M.D. [address] [place] [address] Patent Foramen [place] (HCC); Atrial Fibrillation Unspecified (HCC); Bleeding Disorder (HCC); Hypertension Essential Primary; Atherosclerotic Heart Disease [place] 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) Discharge Disposition: Home or Self Care Social History Tobacco UseTypesPacks/DayYears UsedDateSmoking Tobacco: [id number] - 1976CigarsPassive Smoke Exposure: PastSmokeless Tobacco: NeverAlcohol [...] RecordedIn the past 12 months has the [employer], gas, oil, or water company threatened to shut off services in your home?No01/27/2025Housing StabilityAnswerDate RecordedWhat is your living situation today?I have a steady place to live01/27/2025Education AnswerDate RecordedWhat is the highest level of school you have completed or the highest degree you have received?Nodldkwmb77/16/2022ex and Gender Information ValueDate RecordedSex Assigned at MwxjmCeda30/07/2018 1:03 PM CDTLegal SexMale 08/03/2016 5:25 PM CSTGender GjdysngxYpww43/07/2018 1:03 PM CDTSexual BcojsfwbraxEbxijtii14/07/2018 1:03 PM CDTdocumented as of this encounter [...] of this encounter Procedures Procedure NamePriorityDate/TimeAssociated DiagnosisCommentsUS CAROTID BILATERAL RAD - Routine (most inpatients and all outpatients)06/19/2025 12:28 PM ASSOCIATE PROFESSOR OF LAW Patent Foramen [place] (HCC) Atrial Fibrillation Unspecified (HCC) Bleeding Disorder (HCC) Hypertension Essential Primary Atherosclerotic Heart Disease [place] 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) documented in this encounter Results * US Carotid Bilateral (06/19/2025 12:28 PM ASSOCIATE PROFESSOR OF LAW)Anatomical RegionLaterality ModalityHead and Neck, Ultrasound RST LOS, Ultrasound ARZ LOS, Neuroradiology FLA LOS, Procedural, VascularInterventional NWWI LOSBilateralUltrasound Specimen (Source)Anatomical Location / LateralityCollection Method / Volume Collection TimeReceived Time Impressions 06/19/2025 12:49 PM ASSOCIATE PROFESSOR OF LAW No significant stenosis in the carotid arteries bilaterally. Narrative 06/19/2025 12:49 PM ASSOCIATE PROFESSOR OF LAW EXAM: US CAROTID BILATERAL Exam performed with [...] normal distal ICA in accordance with [place] Symptomatic Carotid Endarterectomy Trial (NASCET). Procedure Note [...] Visit Diagnoses Diagnosis Patent Foramen [place] (HCC) Atrial Fibrillation Unspecified (HCC) Bleeding Disorder (HCC) Hypertension Essential Primary Atherosclerotic Heart Disease [place] 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) documented in this encounter Additional Health Concerns AssessmentNoted TimePHQ-9 Depression Total Score: 1:04 PM CDT documented as of this encounter Care Teams Team MemberRelationshipSpecialtyStart DateEnd Date Elsewhere, Pcp PCP - GeneralFamily Medicine03/23/21documented as of this encounter
--- OUTSIDE RECORDS SUMMARY | 2025-06-20 10:02 | XMS_ITS | Encounter Summary ---
Author Organization [facility] Address [address] [place] [address] Care Team Providers Care Lacer And Tier Name Role Phone Elsewhere, Pcp Primary Care Provider Unavailabl e Encounter Details DateTypeDepartmentCare Team (Latest Contact Info)Ewrizkplnzg75/20/2025 Documentation Department of Vascular Medicine in [place], [place] [address] [place] [address] Andre Garcia M.D. [address] [place] [address] Social History Tobacco UseTypesPacks/DayYears UsedDateSmoking Tobacco: [id number] - 1977CigarsPassive Smoke Exposure: PastSmokeless Tobacco: NeverAlcohol [...] RecordedIn the past 12 months has the [employer], gas, oil, or water [employer] threatened to shut off services in your home?No01/27/2025Housing StabilityAnswerDate RecordedWhat is your living situation today?I have a steady place to live01/27/2025Education AnswerDate RecordedWhat is the highest level of school you have completed or the highest degree you have received?Spoktacsk31/16/2022ex and Gender Information ValueDate RecordedSex Assigned at PbjjvPsnq42/07/2018 1:03 PM CDTLegal SexMale 08/03/2016 5:25 PM CSTGender HvpsellyIzwy81/07/2018 1:03 PM CDTSexual RrrokmprdgeBjhlpnsz72/07/2018 1:03 PM CDTdocumented as of this encounter Progress Notes * Andre Garcia M.D. - 04/20/2025 4:24 PM CDT ASSESSMENT PLAN #1 Left thigh fluid collection #2 Remote bilateral calf DVT and pulmonary embolism #3 Atrial fibrillation, CHADS2 Vasc score 3 #4 Multiple hip arthroplasty procedures with revisions. #5 Acute left femoral DVT #6 Retrievable IVC filter #7 Large PFO with bidirectional shunt. #8 Left soleal DVT #9 Lung nodules #10 Coronary artery disease #11 Exertional dyspnea This is chart review. The echocardiogram performed per post left atrial appendage occlusion device protocol revealed WATCHMAN left atrial appendage occlusion device placement Prominent dpis-zv-gwvcr atrial level shunt by color Doppler. Trivial islkq-zq-ihjc atrial level shunt with Valsalva. The patient is scheduled to be seen by interventional radiology. With these results, I think that the IVC filter can be safely removed. Andre Garcia II, MD Addendum (05/08/2025): The PET stress imaging reveals a very small area of stress induced ischemia at the apex. The lipid profile is excellent with total cholesterol 120, LDL 58, HDL 51 and triglycerides 44. NISTRATIVE ASSISTANT COORDINATOR documented in this encounter Plan of Treatment Not on file documented as of this encounter Visit Diagnoses Not on filedocumented in this encounter Additional Health Concerns AssessmentNoted TimePHQ-9 Depression Total Score: 1:04 PM CDT documented as of this encounter Care Teams Team MemberRelationshipSpecialtyStart DateEnd Date Elsewhere, Pcp PCP - GeneralFamily Medicine03/23/21documented as of this encounter
--- OUTSIDE RECORDS SUMMARY | 2025-06-20 10:02 | XMS_ITS | Encounter Summary ---
Author Organization [facility] Address [address] [place] [address] Care Team Providers Care Punch Press Feeder Name Role Phone Elsewhere, Pcp Primary Care Provider Unavailabl e Encounter Details DateTypeDepartmentCare Team (Latest Contact Info)Gueirzjyhhm85/29/2025Clinical Communication Department of Orthopedic Surgery in [place], [place] [address] [place] [address] Andres Bridges M.D. [address] [place] [address] Social History Tobacco UseTypesPacks/DayYears UsedDateSmoking Tobacco: GqjxlcApptjxxmsc439265 - 1976CigarsPassive Smoke Exposure: PastSmokeless Tobacco: NeverAlcohol [...] completed or the highest degree you have received?Vfynrrxwm96/16/2022ex and Gender Information ValueDate RecordedSex Assigned at CqkliKwqe40/07/2018 1:03 PM CDTLegal SexMale 08/03/2016 5:25 PM CSTGender RixvaewaLwzr69/07/2018 1:03 PM CDTSexual NxxsigqlhfmYrghkpjh54/07/2018 1:03 PM CDTdocumented as of this encounter Miscellaneous Notes * Telephone Encounter - Andres Bridges M.D. - 04/29/2025 4:06 PM CDT Will be on the lookout for the images. Thank you very much. documented in this encounter Plan of Treatment Not on file documented as of this encounter Visit Diagnoses Not on filedocumented in this encounter Additional Health Concerns AssessmentNoted TimePHQ-9 Depression Total Score: 1:04 PM CDT documented as of this encounter Care Teams Team MemberRelationshipSpecialtyStart DateEnd Date Elsewhere, Pcp PCP - GeneralFamily Medicine03/23/21documented as of this encounter
--- OUTSIDE RECORDS SUMMARY | 2025-06-20 10:02 | XMS_ITS | Encounter Summary ---
Author Organization [facility] Address [address] [place] [address] Care Team Providers Care Migratory Worker Name Role Phone Elsewhere, Pcp Primary Care Provider Unavailabl e Reason for Visit * ReasonOnset DateCommentsPhone Gvisexm2205/19/2025 Encounter Details DateTypeDepartmentCare Team (Latest Contact Info)Jdpatqlnpun82/18/2025linical Communication Department of Vascular Medicine in [place], [place] [address] [place] [address] Andre Garcia M.D. [address] [place] [address] Phone Contact Social History Tobacco UseTypesPacks/DayYears UsedDateSmoking Tobacco: CcymwoOgpuqvvxto199875 - 1977CigarsPassive Smoke Exposure: PastSmokeless Tobacco: NeverAlcohol [...] completed or the highest degree you have received?Tbgmlclwm64/16/2022ex and Gender Information ValueDate RecordedSex Assigned at VqzsuCbee67/07/2018 1:03 PM CDTLegal SexMale 08/03/2016 5:25 PM CSTGender TfaincxmOchc70/07/2018 1:03 PM CDTSexual MvnkibgldpvNjyzjuhc92/07/2018 1:03 PM CDTdocumented as of this encounter [...]
--- OUTSIDE RECORDS SUMMARY | 2025-06-20 10:02 | XMS_ITS | Encounter Summary ---
Author Organization [facility] Address [address] [place] [address] Care Team Providers Care Stamping Machine Operator Name Role Phone Elsewhere, Pcp Primary Care Provider Unavailabl e Reason for Referral * MRI/CAT/PET Scan (Routine) - ClosedSpecialtyDiagnoses / ProceduresReferred By ContactReferred To ContactRadiology Diagnoses Acute Embolism And Thrombosis Of Left Femoral Vein (HCC) Embolism Pulmonary Septic (HCC) Atrial Fibrillation Unspecified (HCC) Atherosclerotic Heart Disease [place] 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) Anemia Thrombocytopenia Inferior Vena Cava Filter Procedures CT Abdomen Pelvis Venogram with IV Contrast Lindsey Lu APRN, C.N.PElizabet, M.S.N. [address] [place] [address] Phone: tel: fax: [facility] Referral IDStatusReasonStart DateExpiration DateVisits RequestedVisits [id number]/10/20252/ D WELFARE COUNSELOR Encounter Details DateTypeDepartmentCare Team (Latest Contact Info)Tdtyxilvvbx51/10/2025Orders Only Department of Radiology, [facility], in [place], [place] [address] [place] [address] Lindsey Lu APRN, C.N.P., M.S.N. [address] [place] [address] Acute Embolism And Thrombosis Of Left Femoral Vein (HCC) (Primary Dx); Embolism Pulmonary Septic (HCC); Atrial Fibrillation Unspecified (HCC); Atherosclerotic Heart Disease [place] 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); Anemia; Thrombocytopenia; Inferior Vena Cava Filter Social History Tobacco UseTypesPacks/DayYears UsedDateSmoking Tobacco: FaxyglLdtockyjuy071952 - 1976CigarsPassive Smoke Exposure: PastSmokeless Tobacco: NeverAlcohol [...] threatened to shut off services in your home?5Housing StabilityAnswerDate RecordedWhat is your living situation today?I have a steady place to live01/27/2025Education AnswerDate RecordedWhat is the highest level of school you have completed or the highest degree you have received?Aemeyhxah20/16/2022ex and Gender Information ValueDate RecordedSex Assigned at ElelfIiti12/07/2018 1:03 PM CDTLegal SexMale 08/03/2016 5:25 PM CSTGender JyqenzqzNwtv24/07/2018 1:03 PM CDTSexual QlfsnvgfvuoGysxjywh98/07/2018 1:03 PM CDTdocumented as of this encounter Plan of Treatment Not on file documented as of this encounter Results * (ABNORMAL) CRP (C-Reactive Protein) (05/14/2025 10:28 AM CHILD WELFARE COUNSELOR)ComponentValueRef RangeTest MethodAnalysis TimePerformed AtPathologist SignatureC-Reactive Protein (CRP), S5.3(H)<5.0 mg/L107/14/2024 11:59 AM CSTDTLSpecimen (Source) Anatomical Location / LateralityCollection Method / VolumeCollection Time Received TimeBlood (Blood, Venous)05/14/2025 10:28 AM CST05/14/2025 10:53 AM CHILD WELFARE COUNSELOR Narrative Authorizing ProviderResult TypeResult StatusLindsey Lu APRN, C.N.P., M.S.N.LAB BLOOD ADD-ONFinal ResultPerforming OrganizationAddressCity/State/ZIP CodePhone Number [facility] [address] [place] [address], [facility] DTL [facility] [address] [place] [address] * (ABNORMAL) CBC with Differential, Blood (05/14/2025 10:28 AM CHILD WELFARE COUNSELOR)Component ValueRef RangeTest MethodAnalysis TimePerformed AtPathologist Signature Zfyegkivie48.4(L)13.2 - 16.6 g/dL05/14/2025 11:16 AM TNBVZGLjivekmlmb68.4(L) 38.3 - 48.6 %05/14/2025 11:16 AM CSTDTLErythrocytes3.44(L)4.35 - 5.65 x10(12)/L107/14/2024 11:16 AM GKVFVOHCS73.178.2 - 97.9 fL05/14/2025 11:16 AM CSTDTLRBC Distrib Width21.4(H)11.8 - 14.5 %05/14/2025 11:16 AM CSTDTLPlatelet Mvqgq866676 - 317 x10(9)/L107/14/2024 11:16 AM CSTDTLLeukocytes6.43.4 - 9.6 x10(9)/L107/14/2024 11:16 AM CSTDTLNeutrophils3.161.56 - 6.45 x10(9)/L 05/14/2025 11:16 AM CSTDHPMLymphocytes1.570.95 - 3.07 x10(9)/L107/14/2024 11:16 AM CSTDTLMonocytes1.47(H)0.26 - 0.81 x10(9)/L107/14/2024 11:16 AM CSTDTL Eosinophils0.130.03 - 0.48 x10(9)/05/14/2025 11:16 AM CSTDTLBasophils0.060.01 - 0.08 x10(9)/L107/14/2024 11:16 AM CSTDTLSpecimen (Source)Anatomical Location / LateralityCollection Method / VolumeCollection TimeReceived TimeBlood (Blood, Venous)05/14/2025 10:28 AM CST05/14/2025 10:56 AM CHILD WELFARE COUNSELOR Narrative Authorizing ProviderResult TypeResult StatusLindsey Lu APRN, C.N.P., M.S.N.LAB BLOOD ADD-ONFinal ResultPerforming OrganizationAddressCity/State/ZIP CodePhone Number [facility] [address] [place] [address], [place] DTL [facility] [address] [place] [address] [facility] [address] [place] [address] * CT Abdomen Pelvis Venogram with IV Contrast (05/14/2025 10:17 AM CHILD WELFARE COUNSELOR) Anatomical RegionLateralityModalityAbdomen, Pelvis, Cardiovascular RST LOS, Abdominal ARZ LOS, Vascular Interventional FLA LOS, Procedural, Vascular Interventional NWWI LOSN/AComputed Tomography, Computed TomographySpecimen (Source)Anatomical Location / LateralityCollection Method / VolumeCollection TimeReceived Time05/14/2025 10:10 AM CHILD WELFARE COUNSELOR Impressions 05/14/2025 10:11 AM CHILD WELFARE COUNSELOR The IVC is patent with an infrarenal IVC filter in place. Minimal penetration of the caval filter to the caval wall. Remainder unchanged. Narrative 05/14/2025 10:11 AM CHILD WELFARE COUNSELOR EXAM: CT ABDOMEN PELVIS VENOGRAM WITH IV [...] Remainder unchanged. 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) Anemia Thrombocytopenia Inferior Vena Cava Filter Acute Embolism And Thrombosis Of Left Femoral Vein (HCC) Embolism Pulmonary Septic (HCC) Atrial Fibrillation Unspecified (HCC) Atherosclerotic Heart Disease [place]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
--- OUTSIDE RECORDS SUMMARY | 2025-06-20 10:02 | XMS_ITS ---
Author Organization [facility] Address [address] [place] [address] Care Team Providers Care Rn Dermatology Name Role Phone Andrew Malik MD Unavailable [phone] Andres Bridges MD Unavailable Berto Miller MD Unavailable [phone] Ruddy Baltazar MD Unavailable [phone] Veronica Ontiveros MD Primary Care Provider [phone] Active Problems ProblemNoted DateDiagnosed NddiZyxuhesx04/21/2025Spinal stenosis of lumbosacral vcqkar8308/19/2021 Overview (08/19/2021): 2021; [facility] Elevated coronary artery calcium score08/02/2021 Overview (08/02/2021): 2019 Started on statin therapy. Generalized wnwuryduorgffr11/11/2018History of pulmonary ouwkdnhb56/20/2018 Overview (03/26/2024): Provoked PE when he was recovering from total hip arthroplasty Pknigyvctweopy08/19/2017Celiac crejelp5410/28/2009 Overview (08/19/2021): Overview: EGD 09/2008 celiac disease EGD 09/2008 celiac disease ASHLEY (obstructive sleep apnea)S/P splenectomy Overview (11/12/2018): ITP, age 20 Atrial fibrillation and flutterAvascular necrosis of bones of both hips Overview (11/12/2018): S/P left hip surgery x 5, right hip x 2 History of ITPAcquired hypothyroidismPrimary hypertensionOsteoarthritis of both shouldersBasal cell carcinoma (BCC) of faceHistory of adenomatous polyp of colon Overview (03/26/2024): By 07/29/2014 and 12/20/2019 colonoscopies. OverweightElevated hemoglobin A1c Overview (03/26/2024): A1c 5.8 (07/25/2023). Erectile dysfunction Overview (03/26/2024): Treated with Viagra. Sinus pause Overview (03/26/2024): Low resting ventricular rate plus sinus pauses. followed by Dr. Zaragoza (EP cardiology, [facility]) with every 6 month Zio patch. 10/2023 4- day Holter showed 279 pauses up to 4.5 seconds that were asymptomatic. Mild concentric left ventricular hypertrophy (LVH) Overview (05/18/2024): by 05/2024 TTE. Gilbert's syndrome Overview (10/17/2024): No hemolysis by 09/17/2024 peripheral smear. Current Treatment and Therapy Plans No current plan information found. Past Treatment and Therapy Plans No past plan information found. Lifetime Dose Tracking * ChemicalLifetime DoseAutomatic EntryManual EntryCT Radiation1,291.2 mGy1,291.2 mGy0 mGy Resolved Problems ProblemNoted DateDiagnosed DateResolved DateDisease due to severe acute respiratory syndrome coronavirus 2 (SARS-CoV-2) Gastroesophageal reflux yuajase92Infection of prosthetic total hip jointcquired absence of vuibbm23 Adenomatous polyp of colon Overview (08/19/2021): Overview: Colonoscopy 07/2014 polyp repeat in 5 years Colonoscopy 07/2014 polyp repeat in 5 years Colonoscopy 12/2019 polyp, repeat in 5 years Colonic polyp03/26/2024 Overview (08/01/2021): Tubuar adenoma ; f/u 5 years 2024 Non-celiac gluten ssqylkcdjrk83/25/2024
--- OUTSIDE RECORDS SUMMARY | 2025-06-20 10:02 | XMS_ITS | Clinical Summary ---
Author Organization [employer] Address [facility] [place] [address] Care Team Providers Care Well Service Floor Worker Name Role Phone Ruddy Baltazar MD Primary Care Provider Unavailable Veronica Ontiveros MD Unavailable Unavailable Allergies Active AllergyReactionsCriticalityNoted DateCommentsDaptomycin*Unknown,*Unknown - Follow up needed,Dyspnea,Respiratory MuaboytlEzsf60/15/2018 Pt reports lungs fill up with fluid Listed on hosp discharge summary dated 08-15-17 Pt reports lungs fill up with fluid Other reaction(s): *Unknown Listed on hosp discharge summary dated 08-15-17 Pt reports lungs fill upwith fluid Pt reports lungs fill up with fluid GlutenOther - Describe In Comment Field01/03/2011 Based on family history and endoscopic f Other reaction(s): Other (see comments) based on family history and endoscopic f LactoseOther - Describe In Comment Field12/17/2014 Inflammation Other reaction(s): Other (see comments) inflammation HoydwosiodqeKmrgyvc75/05/8770EefjqisisoSwkod65/05/2014MorphineItching,Other - Describe In Comment Field05/28/2005 Hypersensitivity and agitation Other reaction(s): Other (see comments) No reactions listed in cerner ??Other reaction(s): Other (see comments) Hypersensitivity and agitation Akezidw-Ksc-Rrg Reductase SvlouppylsJimstpt45/05/2014 Statin- muscle soreness Medications MedicationSigDispense QuantityRefillsLast FilledStart DateEnd DateStatus hydrocortisone 1 % cream Apply topically to affected area(s) one time if needed for Other (Specify) (Apply as needed to affected skin irritation. Send home with patient.).0 07/22/2018Active cholecalciferol (VITAMIN D3) 1,000 unit tablet Pt states taking 5,000 unit tablet by mouth once daily.ctive levothyroxine (SYNTHROID) 137 mcg tablet Take 137 mcg by mouth once daily.08/05/2022ctive medication order composer Super BeatsActive coenzyme q10 100 mg cap Indications:Raynaud's disease without gangreneTake 1 Capsule (100 mg) by mouth once daily.4Active pravastatin 40 mg tablet Take 40 mg by mouth at bedtime.Active magnesium carb,citrate,oxide (MAGNESIUM COMPLEX ORAL) Take 1 scoop by mouth once daily.Active CPAP Indications:Obstructive sleep apneaChoice of mask (A7030 or A7034) w/full face cushion (A7031) x1-2/mo, nasal cushion (A7032) x2/mo, or nasal pillows (A7033) x 2/mo; Length of Need: 99 months; Frequency of use: Daily CPAP supply renewal DME: [facility] 1 Each 1105Active amoxicillin 500 mg capsule Take 500 mg by mouth three times daily.Active candesartan 32 mg tablet Indications:Permanent atrial fibrillation (HC)TAKE 1 TABLET BY MOUTH DAILY 30 Tablet 5Active Active Problems ProblemNoted DateDiagnosed DateSimple pulmonary spynsbtomwlv33/04/2021Persistent atrial xvyskjolaziw20/12/2018 Overview (04/12/2018): -S/P atrial fibrillation ablation on 04/11/2018 Jwoitunortch43/12/2018Adenomatous colon polyp07/29/2014 Overview (11/01/2023): Colonoscopy 07/2014 polyp repeat in 5 years Colonoscopy 12/2019 polyp, repeat in 5 years Colonoscopy 10/2023 inflammatory polyp, repeat in 5 years Celiac enkzuqn8110/28/2009 Overview (10/28/2009): EGD 09/2008 celiac disease Abnormal cardiovascular stress test08/28/2008Other and unspecified hyperlipidemiaGERDCHEST PAIN, NONCARDIAC Overview (04/04/2006): s/p myoview 08/2004: normal EF and no evidence for ischemia or infarct. Atrial flutter Overview (04/04/2006): initial episode 05/2005. Recurrence 12/2005 w/ variable AV conduction. NIKI and DCCV 12/2005 - recurrence 2 weeks later with repeat DCCV to NSR s/p successful RFA atrial flutter 04/03/06 w/ Dr. Morris Hx of IMMUNE THROMBOCYTOPENIA S/P SPLENECTOMYNECROSIS AVASCULAR- BONE FEMUR Overview (04/04/2006): presumably from ITP. s/p bilateral total hip replacement HYPOTHYROIDISM Resolved Problems ProblemNoted DateDiagnosed DateResolved DateAtrial ppgeupubsgag05/13/2006 01/11/2006 Family History Medical HistoryRelationNameCommentsHeart DiseaseFatherDeceased age 78Heart DiseaseMaternal GrandmotherDeceased age 62, myocardial infarctionRelationName StatusCommentsFatherMaternal Grandmother Social History Tobacco UseTypesPacks/DayYears UsedDateSmoking Tobacco: VmhsosVdiwedhkkp24 Passive Smoke Exposure: PastSmokeless Tobacco: Never Tobacco Cessation:Counseling Given: Not Answered Comments:Quit smokin Alcohol UseStandard Drinks/VhmsLmwtrydmVye66 (1 standard drink = 0.6 oz pure alcohol)1 glass of wine or beer daily; updated 10/03/2024Financial Resource StrainAnswerDate RecordedDifficulty of Paying Living ExpensesNot on file 2Difficulty of Paying Living ExpensesNot on file2Sex and Gender InformationValueDate RecordedSex Assigned at BirthNot on fileLegal Sex Male07/15/2012 5:25 AM CSTGender IdentityNot on fileSexual OrientationNot on file Last Filed Vital Signs Vital SignReadingTime TakenCommentsBlood Gpitkvth891/5807 3:54 PM CDT Oiuab4587 3:54 PM SLVIqhbvmqkphq16.4 ??C (97.5 ??F)05/12/2021 11:10 AM CSTRespiratory Htdv166507/12/2020 1:00 PM CSTOxygen Wljdgochli78%01/26/2025 3:54 PM CDTInhaled Oxygen Concentration--Aylkee64.6 kg (199 lb 12.8 oz)01/26/2025 3:54 PM UYNBufppu739.9 cm (6')01/26/2025 3:54 PM CDTBody Mass Index27.1 01/26/2025 3:54 PM CDT Plan of Treatment Health MaintenanceDue DateLast DoneCommentsTetanus zoippaw1007/31/1962Depression screening for age 12+1963Hepatitis C screening for age 18-7907/31/1969 Pneumococcal series for age 50+ (1 of 2 - PCV)1970Lipids for age 45-75 1996Zoster (shingles) series for age 50+ (1 of 2)2001COVID-19 vaccine series ( season), 08/26/2020Influenza Vaccine (#1)2025MI (ht and wt on same day) for age 18+01/26/2026 01/26/2025, 01/07/2025, 10/20/2024, Additional history existsRSV vaccine for adults or (1 - 1-dose 75+ series)2026Colonoscopy through age 75 9010/29/2023, 10/29/2023, 12/03/2019, Additional history existsAAA screening age 65-07Opezwgfuv31/19/2022Hepatitis B series for 19+Aged OutNo longer eligible based on patient's age to complete this topic Procedures Procedure NamePriorityDate/TimeAssociated DiagnosisCommentsCOLONOSCOPY SCREENING Xmwrqqt2610/29/2023 12:00 AM CDT Polyp of colon, unspecified part of colon, unspecified type US ABD AORTA GUKRDZEAEGgejnmd80/19/2022 8:08 AM SPRAY PILOT Screening for cardiovascular condition from Last 3 Months or Most Recently Relevant to Health Maintenance Results * COLONOSCOPY SCREENING (10/29/2023 12:00 AM CDT) Narrative Authorizing ProviderResult TypeResult StatusRinku Guzman MDGI PROCEDURE ORDFinal Result * US ABD AORTA SCREENING (06/19/2022 8:08 AM SPRAY PILOT)Anatomical RegionLaterality ModalityAbdomen, AORTAUltrasoundSpecimen (Source)Anatomical Location / LateralityCollection Method / VolumeCollection TimeReceived Time06/19/2022 7:44 AM SPRAY PILOT Narrative 06/19/2022 9:08 AM SPRAY PILOT VASCULAR ULTRASOUND REPORT DR. LU HARRIS Accession#: ?? [id number] : ?1950 ??Study Date: ?? 06/19/2022 7:44:32 AM Age: ?71 years ?? Tech: ? BVB Gender: M ?Referring MD: RIVERA ALEXANDRE [facility] Study performed: ?Aorta Indication for study: AAA screening. TECHNIQUE: The abdominal aorta and iliac arteries were examined with duplex ultrasound, color-flow and spectral Doppler. Bypass grafts and/or stents if present are evaluated per exam protocol. Vessel size, peaksystolic velocity (PSV) and velocity ratios if applicable, were obtained and documented at sites per exam protocol. IMPRESSION: 1. No evidence of abdominal aortic aneurysm. 2. 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 3. Bilateral common iliac arteries are normal in caliber, where visualized. COMPARISON: No prior study available for comparison. FINDINGS: There is no evidence of abdominal aortic aneurysm. No common iliac artery aneurysm bilaterally. 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 Ectasia of the suprarenal aorta. MEASUREMENTS: + +--------+-------+ +---------+ ? TRV (cm) AP (cm) PSV (cm/s) Phasicity + +--------+-------+ +---------+ Suprarenal aorta ?2.60 ?? 2.60 ?75 ? triphasic + +--------+-------+ +---------+ Juxtarenal aorta ?2.02 ?? 2.06 ? 101 ? biphasic + +--------+-------+ +---------+ Infrarenal aorta ?1.71 ?? 1.78 ? 117 ? triphasic + +--------+-------+ +---------+ Right common iliac ??1.10 ?? 1.35 ? 135 ? triphasic + +--------+-------+ +---------+ Left common iliac ??1.37 ?? 1.37 ?91 ? triphasic + +--------+-------+ +---------+ Lefty Giron MD. [employer] Electronically signed on 06/19/2022 9:08:27 AM This study was performed and interpreted by a service accredited by the Intersocietal AccreditationCommission (IAC/Vascular), www.intersocietal.org/vascular Report generated by [employer]. ??Final ?? Procedure Note Lefty Giron MD - 06/19/2022 VASCULAR ULTRASOUND REPORT LU Baumann HARRIS : 1950 Study Date: 06/19/2022 7:44:32 AM Age: 71 years Tech: BVB Gender: M Referring MD: RIVERA LAEXANDRE Site: [facility] Study performed: Aorta Indication for study: AAA screening. TECHNIQUE: The abdominal aorta and iliac arteries were examined with duplexultrasound, color-flow and spectral Doppler. Bypass grafts and/or stentsif present are evaluated per exam protocol. Vessel size, peak systolicvelocity (PSV) and velocity ratios if applicable, were obtained anddocumented at sites per exam protocol. IMPRESSION: 1. No evidence of abdominal aortic aneurysm. 2. 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 3. Bilateral common iliac arteries are normal in caliber, wherevisualized. COMPARISON: No prior study available for comparison. FINDINGS: There is no evidence of abdominal aortic aneurysm. No common iliac artery aneurysm bilaterally. Ectasia of the suprarenal aorta which measures 2.6 x2.6 cm. Ectasia of the suprarenal aorta. MEASUREMENTS: + +--------+-------+ +---------+ TRV (cm) AP (cm) PSV (cm/s) Phasicity + +--------+-------+ +---------+ Suprarenal aorta 2.60 2.60 75 triphasic + +--------+-------+ +---------+ Juxtarenal aorta 2.02 2.06 101 biphasic + +--------+-------+ +---------+ Infrarenal aorta 1.71 1.78 117 triphasic + +--------+-------+ +---------+ Right common iliac 1.10 1.35 135 triphasic + +--------+-------+ +---------+ Left common iliac 1.37 1.37 91 triphasic + +--------+-------+ +---------+ Lefty Giron MD. [employer] Electronically signed on 06/19/2022 9:08:27 AM This study was performed and interpreted by a service accredited by the Intersocietal Accreditation Commission (IAC/Vascular), www.intersocietal.org/vascular Report generated by [employer]. Final Authorizing ProviderResult TypeResult StatusRobert Beau Alexandre MDUSFinal Result from Last 3 Months or Most Recently Relevant to Health Maintenance Insurance * Guarantor: Lu Harris TypeRelation to PatientDate of PhoneBilling AddressPersonal/MfugykXcka62/30/1951 [id number] [place] [address] Advance Directives * Full Code (Latest Code Status on File) Date ActivatedDate GcmxotqiyxwVwlfkhvi32/11/2021 9:39 AM05/12/2021 5:21 PM QuestionAnswerCommentsCode Status Discussion:* Other * Full Code Date ActivatedDate InactivatedComments07/22/2018 8:30 AM07/22/2018 1:06 PM * DNR Date ActivatedDate InactivatedComments07/22/2018 6:57 AM07/22/2018 8:30 AM * Full Code Date ActivatedDate VgwlucsibseBtwmgzyc44/11/2018 10:55 AM04/12/2018 12:54 PM * Full Code Date ActivatedDate TnrestfsjwwUacdindc14/10/2009 9:56 AM05/11/2009 2:51 PM Care Teams Team MemberRelationshipSpecialtyStart DateEnd Date Ruddy Baltazar MD PCP - GeneralInternal Nmdtedaf83/12/19 Veronica Ontiveros MD [facility]01/26/25
--- OUTSIDE RECORDS SUMMARY | 2025-06-20 10:02 | XMS_ITS | Clinical Summary ---
Author Organization [facility] Address [address] [place] [address] Care Team Providers Care Cosmetic Manager Name Role Phone Andrew Malik MD Unavailable [phone] Andres Bridges MD Unavailable Berto Miller MD Unavailable [phone] Ruddy Baltazar MD Unavailable [phone] Veronica Ontiveros MD Primary Care Provider [phone] Allergies Active AllergyReactionsCriticalityNoted DateCommentsDaptomycinShortness of mlozmyFxaj58/15/2018 Listed on hosp discharge summary dated 08-15-17 Pt reports lungs fill up with fluid Tgnpbc3501/03/2011 Based on family history and endoscopic f Ykrszvi4712/17/2014 Inflammation YqsaiirsqoKfxay30/05/9275OmjiulheWmeaeld67/27/2005 Hypersensitivity and agitation Oplpijd-Pzg-Vmi Reductase KkoqcdfrqwAuzhfhk46/05/2014 Statin- muscle soreness Medications MedicationSigDispense QuantityRefillsLast FilledStart DateEnd DateStatus sildenafiL (VIAGRA) 50 mg oral tablet Take 1 tablet (50 mg) by mouth as directed. 6 tablet 3Active oxyCODONE, immediate release, (ROXICODONE) 5 mg oral tablet Indications:Left thigh painTake 1 tablet (5 mg) by mouth every 6 (six) hours as needed (pain >7/10 severity). 25 tablet 5Active levothyroxine (SYNTHROID) 137 mcg oral tablet TAKE 1 TABLET BY MOUTH DAILY 90 tablet 3045Active ferrous gluconate 324 mg (38 mg iron) oral tablet Indications:Iron deficiencyTAKE 1 TABLET BY MOUTH DAILY 90 tablet 5Active codeine 30 mg-acetaminophen 300 mg (TYLENOL #3) 300-30 mg oral tablet 5Active amoxicillin (AMOXIL) 500 mg oral capsule Take 4 caps (2000 mg) 1 hour prior to procedure.5Active aspirin 81 mg oral enteric coated tablet Take 1 tablet (81 mg) by mouth Daily.5Active UNKNOWN MEDICATIONS 2 super beets gummies per dayActive candesartan (ATACAND) 32 mg oral Tab Indications:Primary hypertension,Mild concentric left ventricular hypertrophy (LVH)TAKE 1 TABLET BY MOUTH DAILY 90 tablet 5Active pravastatin (PRAVACHOL) 40 mg oral tablet TAKE ONE TABLET BY MOUTH AT BEDTIME 90 tablet 5Active pravastatin (PRAVACHOL) 40 mg oral tablet TAKE ONE TABLET BY MOUTH AT BEDTIME 90 tablet 4108/10/2024Discontinued Active Problems ProblemNoted DateDiagnosed NsxfFhdlihkb99/21/2025Spinal stenosis of lumbosacral ongzsn5608/19/2021 Overview (08/19/2021): 2021; [facility] Elevated coronary artery calcium score08/02/2021 Overview (08/02/2021): 2019 Started on statin therapy. Generalized vyqjqzvujzoucf05/11/2018History of pulmonary stqijucc99/20/2018 Overview (03/26/2024): Provoked PE when he was recovering from total hip arthroplasty Tguxlrlaofswax48/19/2017Celiac kgikyun8110/28/2009 Overview (08/19/2021): Overview: EGD 09/2008 celiac disease [...] pauses. followed by Dr. Zaragoza (EP cardiology, [facility]) with every 6 month Zio patch. 10/2023 4- day Holter showed 279 pauses up to 4.5 seconds that were asymptomatic. Mild concentric left ventricular hypertrophy (LVH) Overview (05/18/2024): by 05/2024 TTE. Gilbert's syndrome Overview (10/17/2024): No hemolysis by 09/17/2024 peripheral smear. Resolved Problems ProblemNoted DateDiagnosed DateResolved DateDisease due to severe acute respiratory syndrome coronavirus 2 (SARS-CoV-2) Gastroesophageal reflux kmcyvtd98Infection of prosthetic total hip jointcquired absence of ciyiao76 Adenomatous polyp of colon Overview (08/19/2021): Overview: Colonoscopy 07/2014 polyp repeat in 5 years Colonoscopy 07/2014 polyp repeat in 5 years Colonoscopy 12/2019 polyp, repeat in 5 years Colonic polyp03/26/2024 Overview (08/01/2021): Tubuar adenoma ; f/u 5 years 2024 Non-celiac gluten rzktrznmicb57/25/2024 Encounters DateTypeDepartmentCare IvlxXehmmpknmqj45/03/2025Results Follow-Up [facility] [address] [place] [address] Ruddy Baltazar MD XR KNEE & SUNRISE VIEW LT04/29/2025 1:15 PM CDTAncillary Procedure [facility] [address] [place] [address] Fall, initial encounter; Left knee pain, unspecified psldnpiakp82/29/2025Travelfrom Last 3 Months Immunizations ImmunizationAdministration DatesNext WmeH4W9 Piqfissbz08/10/2010Influenza High Dose (Fluzone Quadrivalent PF)05/02/2017,04/19/2017,04/01/2013Influenza recombinant (FluBlok Quadrivalent PF)05/02/2016Influenza split virus ebyizrabrcag78/01/2017,04/19/2017,05/02/2016,04/01/2013,05/06/2012,03/19/2010 Meningococcal B OMV (Bexsero)05/30/2016,05/02/2016Meningococcal MCV4P (Menactra) 07/07/2016,05/02/2016Pfizer 12+ Yrs Monovalent COVID Vaccine (purple cap) 09/16/2020,1Pneumococcal VNK608507/02/2015Pneumococcal BTY399007/20/2022 Pneumococcal Polysaccharide KPMI8327,01/11/2011,08/02/2003Tdap11/25/2019 Zoster Fnkueiupnfh13/07/2020,11/25/2019 Family History Medical HistoryRelationCommentsHeart DiseaseBrother 1Sudden Cardiac DeathBrother 1Healthy runnerCerebral palsyBrother 2Heart DiseaseBrother 2No Known Problems Daughter 1No Known ProblemsDaughter 2Sudden Cardiac DeathFatherPOW in WWIIDown SyndromeGranddaughterGastric/Stomach CancerMother? small bowel lymphoma vs stomach cancerSudden Cardiac DeathPaternal Uncle 1Sudden Cardiac DeathPaternal Uncle 2Heart DiseaseSister 1SeizuresSister 2No Known ProblemsSister 3Heart DiseaseSister 4Inflammatory Bowel DiseaseSonRelationStatusCommentsBrother 1 DeceasedBrother 2Deceased (Age 60s)Brother 3AliveDaughter 1Alivegluten sensitivityDaughter 2Alivegluten sensitivityFatherDeceasedGranddaughterAlive Maternal GrandfatherDeceasedMaternal GrandmotherDeceasedMotherDeceased (Age 77) Paternal GrandfatherDeceasedPaternal GrandmotherDeceasedPaternal Uncle 1Paternal Uncle 2AliveSister 1AliveSister 2AliveSister 3AliveSister 4AliveSonAlive Social History Tobacco UseTypesPacks/DayYears UsedDateSmoking Tobacco: FormerCigarettesQuit: 1981Smokeless Tobacco: Never Tobacco Cessation:Counseling Given: Not Answered Alcohol UseStandard Drinks/WeekCommentsYes6 (1 standard drink = 0.6 oz pure alcohol)gluten free beer or wine one a day approxDAYTON OSTEOPATHIC [facility]ITAL UtilitiesAnswerDate RecordedIn the past 12 months has the [facility], gas, oil, or water [employer] threatened to shut off services in your home?10/21/2024Humiliation, Afraid, Rape, and Kick questionnaireAnswerDate RecordedWithin the last year, have you been afraid of your partner or ex-partner?10/21/2024Within the last year, have you been humiliated or emotionally abused in other ways by your partner or ex-partner?10/21/2024Within the last year, have you been kicked, hit, slapped, or otherwise physically hurt by your partner or ex-partner?10/21/2024Within the last year, have you been raped or forced to have any kind of sexual activity by your partner or ex-partner?10/21/2024UDIT-CAnswerDate RecordedFrequency of Alcohol Consumption2-3 times a week11/12/2018Average Number of Drinks1 or 2 11/12/2018Frequency of Binge DrinkingNot on file11/12/2018PHQ-2AnswerDate RecordedPHQ2 Gsbjs164Exercise Vital SignAnswerDate RecordedDays of Exercise per Week4 days11/12/2018Minutes of Exercise per Igbixlw76 min11/12/2018 Hunger Vital SignAnswerDate RecordedWithin the past 12 months, you worried that your food would run out before you got the money to buymore.Never true10/21/2024 Within the past 12 months, the food you bought just didn't last and you didn't have money to get more.Never true10/21/2024PRAPARE - TransportationAnswerDate RecordedIn the past 12 months, has lack of transportation kept you from medical appointments or from getting medications?No10/21/2024In the past 12 months, has lack of transportation kept you from meetings, work, or from getting things needed for daily living?10/21/2024Housing Stability Vital SignAnswerDate RecordedIn the last 12 months, was there a time when you were not able to pay the mortgage or rent on time?No10/21/2024In the past 12 months, how many times have you moved where you were living?t any time in the past 12 months, were you homeless or living in a fci (including now)?No10/21/2024 EducationAnswerDate RecordedWhat is the highest level of school you have completed or the highest degree you have received?Professional school degree (e.g., , DDS, DVM, HOLLIS)11/11/2018Sex and Gender InformationValueDate Recorded Sex Assigned at BirthNot on fileLegal YnlNmlg6710/21/2012 4:45 AM CDTGender IdentityNot on fileSexual OrientationNot on fileOccupationIndustryJob Start Date Job End DateoptometristNot on fileNot on fileNot on file Last Filed Vital Signs Vital SignReadingTime TakenCommentsBlood Akctwygk616/7807 12:50 PM CDT Nqzkd9558 12:50 PM VRVAvogdlyhtxx27.7 ??C (98.1 ??F)12/31/2024 12:50 PM CDTRespiratory Tmyy721012/31/2024 12:50 PM CDTOxygen Urikbcmhsg08%12/31/2024 12:50 PM CDTInhaled Oxygen Concentration--Yjkqvf64.7 kg (200 lb)12/31/2024 12:50 PM CDTwith xvppuInjwto572.9 cm (6')12/31/2024 12:50 PM CDTBody Mass Index27.12 12/31/2024 12:50 PM CDT Plan of Treatment Health MaintenanceDue DateLast DoneCommentsRSV Vaccines (1 - Risk 50-74 years 1- dose series)2001Meningococcal B Vaccine (3 of 4 - Increased Risk Bexsero 3-dose series), 05/02/20165258Oricwnmsoah60 (Previously completed), 07/28/2014 (Previously completed)COVID-19 Vaccine ( - season)503/, 08/26/2020Influenza Vaccine (#1)2025 05/02/2017, 05/02/2017, 04/19/2017, Additional history existsThyroid-Stimulating Hormone (TSH)/, 07/25/2023, 10/30/2022, Additional history existsYearly Review of HCD/, 03/26/2024, 07/25/2023, Additional history existsDepression Assessment (PHQ-2)/5Adult Tetanus Gmwjmme49Zoster RfnfmbgQifjsojgy04/07/2020, 11/25/2019 Hepatitis C LnotbqrwrClmtqcfwu50/31/2022AAA Ultrasound ScreeningCompleted 06/19/2022, 2Pneumococcal 50+ PbyyjBweghjpnm13/19/2023, 07/07/2016, 05/02/2016, Additional history exists Medical Devices ImplantedTypeAreaManufacturerDevice IdentifierShelf Expiration DateModel / Serial / LotFilter Ruth Ann Jugular - [id number] Implanted:Qty: 1 on 10/21/2024 by Noe Elizabeth MD at [id number] / / [id number] Device - [id number] Implanted:Qty: 1 on 10/21/2024 [facility] [id number] / / [id number] Procedures Procedure NamePriorityDate/TimeAssociated DiagnosisCommentsXR KNEE & SUNRISE VIEW EUMjwjdkh84/29/2025 1:27 PM CDT Fall, initial encounter Left knee pain, unspecified chronicity THYROID STIMULATING HORMONE TVLeutuns14/25/2025 10:13 AM CLEANING MACHINE OPERATOR Hypothyroidism, unspecified type HCV ANTIBODY ([facility])Ymgviku4808/01/2021 12:08 PM CLEANING MACHINE OPERATOR Need for hepatitis C screening test from Last 3 Months or Most Recently Relevant to Health Maintenance Results * XR KNEE & SUNRISE VIEW LT (04/29/2025 1:27 PM CDT)Anatomical RegionLaterality ModalityExtremityComputed RadiographySpecimen (Source)Anatomical Location / LateralityCollection Method / VolumeCollection TimeReceived Time04/29/2025 3:25 PM CDT Impressions 04/29/2025 3:34 PM CDT IMPRESSION: No fracture or dislocation. Sclerotic foci in the lateral metaphysis, left lateral femoral condyle, and proximal tibial metaphysis are compatible with osteonecrosis (bone infarcts and avascular necrosis). Benign periosteal reaction of the metaphysis is likely the sequela of remote trauma. Postoperative changes of presumed femoral reconstruction with a large-caliber intramedullary joyce and cerclage wires. Bony proliferation about the upper aspect of the visualized joyce. No patellar tilt or subluxation. Small joint effusion. At the level of the distal tip of the right there is soft tissue density surrounding the femur which measures up to 19.3 x 19.3 x 17.6 cm. This could represent a soft tissue mass or hematoma. This is likely unchanged from the CT from 10/20/2024. The lack of resolution raises increased suspicion for a soft tissue mass. MRI with and without contrast of the thigh is recommended for further characterization. REPORT SIGNED BY DR. Dilip Curtis Narrative 04/29/2025 3:34 PM CDT EXAM: XR KNEE & SUNRISE VIEW LT DATE: 04/29/2025 13:11 CLINICAL DATA: Unspecified fall, initial encounter COMPARISON: CT CAP with runoff 10/20/2024 VIEWS: Frontal, lateral, and sunrise views of the knee were obtained. FINDINGS/ Procedure Note Dilip Curtis MD - 04/29/2025 EXAM: XR KNEE & SUNRISE VIEW LT DATE: 04/29/2025 13:11 CLINICAL DATA: Unspecified fall, initial encounter COMPARISON: CT CAP with runoff 10/20/2024 VIEWS: Frontal, lateral, and sunrise views of the knee were obtained. FINDINGS/ IMPRESSION IMPRESSION: No fracture or dislocation. Sclerotic foci in the lateralmetaphysis, left lateral femoral condyle, and proximal tibial metaphysisare compatible with osteonecrosis (bone infarcts and avascular necrosis).Benign periosteal reaction of the metaphysis is likely the sequela ofremote trauma. Postoperative changes of presumed femoral reconstructionwith a large-caliber intramedullary joyce and cerclage wires. Bonyproliferation about the upper aspect of the visualized joyce. No patellartilt or subluxation. Small joint effusion. At the level of the distal tipof the right there is soft tissue density surrounding the femur whichmeasures up to 19.3 x 19.3 x 17.6 cm. This could represent a soft tissuemass or hematoma. This is likely unchanged from the CT from 10/20/2024. Thelack of resolution raises increased suspicion for a soft tissue mass. MRIwith and without contrast of the thigh is recommended for furthercharacterization. REPORT SIGNED BY DR. Dilip Curtis Authorizing ProviderResult TypeResult StatusFrederjazlyn Baltazar MDXRAY ORDERABLE Final Result * THYROID STIMULATING HORMONE OP (08/26/2024 10:13 AM CLEANING MACHINE OPERATOR)ComponentValueRef RangeTest MethodAnalysis TimePerformed AtPathologist SignatureCONFLUENCE HEALTH OP3.2630.358 - 3.740 UIU/mL08/26/2024 1:40 PM CSTNORTBEMIDJI [facility] Specimen (Source)Anatomical Location / LateralityCollection Method / Volume Collection TimeReceived TimeBloodVenipuncture / Tqduybx7508/26/2024 10:13 AM CLEANING MACHINE OPERATOR 08/26/2024 11:02 AM CLEANING MACHINE OPERATOR Narrative Authorizing ProviderResult TypeResult StatusVeronica Ontiveros MDCHEMISTRY ORDERABLEFinal ResultPerforming OrganizationAddressCity/State/ZIP CodePhone Number [facility] [address] [place] [address], * HCV ANTIBODY ([facility]) (08/01/2021 12:08 PM CLEANING MACHINE OPERATOR)ComponentValueRef RangeTest MethodAnalysis TimePerformed AtPathologist SignatureHepatitis C Virus Antibody ([facility])<0.10.0 - 0.9 s/co ratio08/02/2021 11:08 AM [facility] Comment: Negative: < 0.8 ? Indeterminate: 0.8 - 0.9 Positive: > 0.9 The CDC recommends that a positive HCV antibody result be followed up with a HCV Nucleic Acid Amplification test (595542). Specimen (Source)Anatomical Location / LateralityCollection Method / Volume Collection TimeReceived TimeBloodVenipuncture / Byxrjxp0008/01/2021 12:08 PM CLEANING MACHINE OPERATOR 08/01/2021 12:17 PM CLEANING MACHINE OPERATOR Narrative [facility] - 08/02/2021 11:08 AM CLEANING MACHINE OPERATOR Performed at: 01 - [address] ??[id number] Hand Inserter Operator: Ravinder Olivera MD, Phone: ??[phone] Authorizing ProviderResult TypeResult StatusRuddy Baltazar MDLABCORP ORDERABLESFinal ResultPerforming OrganizationAddressCity/State/ZIP CodePhone Number [facility] [address] [place] [phone] from Last 3 Months or Most Recently Relevant to Health Maintenance Insurance * Guarantor: Mauri Harris TypeRelation to PatientDate of PhoneBilling AddressPersonal/SlbpnxDbxw02/[birth year]/[address] [place] [address] Advance Directives For more information, please contact: [phone] * Full Code (Latest Code Status on File) Date ActivatedDate InactivatedComments10/20/2024 10:25 PM10/22/2024 12:49 PM QuestionAnswerCommentsHow was code status determined?* Physician Determined Care Teams Team MemberRelationshipSpecialtyStart [place] [address] [place] [address] PCP - GeneralInternal Btrfkbra89/29/25 Andrew Malik MD Consulting PhysicianGeneral Vascular Surgery10/20/24 Andres Bridges MD [address] [place] [phone] Orthopedic Surgery10/21/24 Berto Miller MD [address] [place] [phone] Cardiovascular Disease10/21/24 Ruddy Baltazar MD [address] [place] [phone] Internal Medicine10/21/24
--- OUTSIDE RECORDS SUMMARY | 2025-06-20 10:02 | XMS_ITS | Encounter Summary ---
[facility] Address [address] [place] [address] Care Team Providers Care Head Of Sales Name Role Phone Elsewhere, Pcp Primary Care Provider Unavailabl e Encounter Details DateTypeDepartmentCare Team (Latest Contact Info)Vamlettqacl04/11/2025 Documentation Department of Orthopedic Surgery in [place], [place] [address] [place] [address] Chandni Blair M.D. [address] [place] [address] Social History Tobacco UseTypesPacks/DayYears UsedDateSmoking Tobacco: KfcatiJxgabdyvjr446983 - 1977CigarsPassive Smoke Exposure: PastSmokeless Tobacco: NeverAlcohol [...] RecordedIn the past 12 months has the [employer], gas, oil, or water company threatened to shut off services in your home?No01/27/2025Housing StabilityAnswerDate RecordedWhat is your living situation today?I have a steady place to live01/27/2025Education AnswerDate RecordedWhat is the highest level of school you have completed or the highest degree you have received?Vyghvgwbm11/16/2022ex and Gender Information ValueDate RecordedSex Assigned at EtzgtXmhk06/07/2018 1:03 PM CDTLegal SexMale 08/03/2016 5:25 PM CSTGender MogrpnfwGnac71/07/2018 1:03 PM CDTSexual KmipxhtlsqoJvfatwfi63/07/2018 1:03 PM CDTdocumented as of this encounter Progress Notes * Chandni Blair M.D. - 05/12/2025 3:26 PM CST MISC ORTHO PROGRESS NOTE I called Mr. Harris again to close the loop on the conversation that we had last week regarding his thigh hematoma. I did have a chance to review his vascular Medicine notes. We of course agree with all of their recommendations. Regarding the thigh hematoma, we recommend conservative management and no surgery at this time unless vascular says otherwise. Dr. Bridges is happy to see him back in theoffice at any point to discuss the plan and is of course happy to see him if anything changes. I did communicate this to the patient. He has no further questions at this time. NT RENEWAL SPECIALIST documented in this encounter Plan of Treatment Not on file documented as of this encounter Visit Diagnoses Not on filedocumented in this encounter Additional Health Concerns AssessmentNoted TimePHQ-9 Depression Total Score: 1:04 PM CDT documented as of this encounter Care Teams Team MemberRelationshipSpecialtyStart DateEnd Date Elsewhere, Pcp PCP - GeneralFamily Medicine03/23/21documented as of this encounter
--- OUTSIDE RECORDS SUMMARY | 2025-06-20 10:02 | XMS_ITS | Clinical Summary ---
Author [facility] Address [address] [place] [address] Care Team Providers Care Lard Maker Name Role Phone Ruddy Baltazar MD Primary Care Provider [phone] Source Comments You are receiving this document as you are listed as the primary care provider,follow-up provider, or the patient has been referred to you for consultation.This is in compliance with the Medicare andMedicaid EHR Incentive Program,which states Providers who transition their patient to another setting of careor provider of care or refers their patient to another provider of care shouldprovide summary care record for each transition of care or referral. [facility] Allergies Active AllergyReactionsCriticalityNoted DateCommentsAtorvastatinMyalgias 06/05/2014DaptomycinUnknown,Respiratory DyxutczaYmuq81/15/2018 Other reaction(s): *Unknown Listed on hosp discharge summary dated 08-15-17 Pt reports lungs fill upwith fluid Pt reports lungs fill up with fluid Gluten MealOther, see /05/2011 Other reaction(s): Other (see comments) based on family history and endoscopic f LactoseOther, see vmxudddv11/18/2015 Other reaction(s): Other (see comments) inflammation DfgxvgxssoChmub27/05/7035OzkcazicUwczcnj89/27/2005 Other reaction(s): Other (see comments) No reactions listed in cerner Other reaction(s): Other (seecomments) Hypersensitivity and agitation JffphdnYsccoyzw03/05/2014 Statin- muscle soreness Medications MedicationSigDispense QuantityRefillsLast FilledStart DateEnd DateStatus candesartan (ATACAND) 32 MG tablet Take 1 Tablet (32 mg) by mouth daily.Active Cholecalciferol 125 MCG (5000 UT) Take by mouth.Active Coenzyme Q10 100 MG Take 1 Capsule (100 mg) by mouth daily.11/28/2023ctive levothyroxine (SYNTHROID) 137 MCG tablet Take 1 Tablet (137 mcg) by mouth daily.02/03/2024ctive pravastatin (PRAVACHOL) 40 MG tablet Take 1 Tablet (40 mg) by mouth daily at bedtime.02/21/2024ctive XARELTO 20 MG tablet SMARTSI Tablet(s) By Mouth Every Gfvugsr8803/29/2024ctive sildenafil (VIAGRA) 50 MG tablet Take 1 Tablet (50 mg) by mouth daily.12/25/2023ctive L-Glutathione LAMAR 250 mg daily.Active Cyanocobalamin (VITAMIN B-12) 50 MCG tablet Take 1 Tablet (50 mcg) by mouth daily.Active niacin 500 MG tablet Take 1 Tablet (500 mg) by mouth daily with meal.Active Social History Tobacco UseTypesPacks/DayYears UsedDateSmoking Tobacco: NeverSmokeless Tobacco: Never Tobacco Cessation:Counseling Given: Not Answered Sex and Gender InformationValueDate RecordedSex Assigned at BirthNot on file Legal TepNmcw36/08/2024 6:39 AM CDTGender IdentityNot on fileSexual Orientation Not on file Last Filed Vital Signs Vital SignReadingTime TakenCommentsBlood Cwermpbu182/8907/05/2024 3:03 PM PLASTIC PROCESS TECHNICIAN Peopw703007/05/2024 3:03 PM IOWRqsbzemjgie57.4 ??C (97.5 ??F)07/05/2024 1:02 PM CSTRespiratory Eihr772507/05/2024 3:03 PM CSTOxygen Abbsiurmox67%07/05/2024 3:03 PM CSTInhaled Oxygen Concentration--Vngzzd07.1 kg (196 lb 8 oz)04/18/2024 8:22 AM UBFNtwxxs327.9 cm (6')04/18/2024 8:22 AM CDTBody Mass Index26.6504/18/2024 8:22 AM CDT Plan of Treatment Health MaintenanceDue DateLast DoneCommentsColon Cancer Screening Plan Due 1950Hep C Screening (Preventive Services)1950dult Preventive Visit 07/31/19699282Tkjidghcnmo12/30/1987COVID-19 Vaccine (3 - 2024- season)2025 09/16/2020, 08/26/2020Influenza Vaccine (#1)5107/02/2016, 04/19/2017, 05/02/2016, Additional history existsRSV Vaccine (1 - 1-dose 75+ series) 2026DTaP/Tdap/Td Vaccine (2 - Tdap)Meningococcal B VaccineAged Out05/30/2016, 05/02/2016No longer eligible based on patient's age to complete this topicMCV4 VaccineAged Out07/07/2016, 05/02/2016No longer eligible based on patient's age to complete this topicZoster/Shingles Vaccine Rgamudtvk75/07/2020, 11/25/2019Pneumococcal Vaccine 50+ FiaMquxuncba67/19/2023, 07/07/2016, 05/02/2016, Additional history existsHepA VaccineAged OutNo longer eligible based on patient's age to complete this topicHepB VaccineAged OutNo longer eligible based on patient's age to complete this topicHib VaccineAged Out No longer eligible based on patient's age to complete this topic Insurance Care Teams Team MemberRelationshipSpecialtyStart DateEnd Date Ruddy Baltazar MD PCP - GeneralInternal Yeisqqdy21/18/24
--- OUTSIDE RECORDS SUMMARY | 2025-06-20 10:02 | XMS_ITS | Encounter Summary ---
Author Organization [facility] Address [address] [place] [address] Care Team Providers Care Devulcanizer Tender Name Role Phone Elsewhere, Pcp Primary Care Provider Unavailabl e Reason for Referral * Outpatient (Routine) - ClosedSpecialtyDiagnoses / ProceduresReferred By ContactReferred To ContactVascular Medicine Duncan Allen M.D. [address] [place] [address] Phone: tel: fax: [employer] Referral IDStatusReasonStart DateExpiration DateVisits RequestedVisits [id number]/7/20255/9/202711 [facility] * Outpatient (Routine) - ClosedSpecialtyDiagnoses / ProceduresReferred By ContactReferred To Contact Diagnoses Embolus Pulmonary Personal History 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) Procedures US Lower Extremity Veins Bilateral Duncan Allen M.D. [address] [place] [address] Phone: tel: fax: [employer] Referral IDStatusReasonStart DateExpiration DateVisits RequestedVisits [id number]/7/20252/7/202711 [facility] Encounter Details DateTypeDepartmentCare Team (Latest Contact Info)Ennkdyuoyuc59/07/2025Orders Only Department of Vascular Medicine in [place], [place] [address] [place] [address] Duncan Allen M.D. 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) (Primary Dx); Embolus Pulmonary Personal History Social History Tobacco UseTypesPacks/DayYears UsedDateSmoking Tobacco: [id number] - 1976CigarsPassive Smoke Exposure: PastSmokeless Tobacco: NeverAlcohol [...] completed or the highest degree you have received?Fdmyllgya48/16/2022ex and Gender Information ValueDate RecordedSex Assigned at AzeirUlis77/07/2018 1:03 PM CDTLegal SexMale 08/03/2016 5:25 PM CSTGender JwmxrfncGded92/07/2018 1:03 PM CDTSexual MwwyohhriasUbigaawm17/07/2018 1:03 PM CDTdocumented as of this encounter Plan of Treatment NameTypePriorityAssociated DiagnosesOrder ScheduleVascular Medicine office visit (clinic)Outpatient ReferralRoutineExpected: 11/11/2025, Expires: 08/08/2026 documented as of this encounter Results * US Lower Extremity Veins Bilateral (05/14/2025 1:50 PM [facility])Anatomical Region LateralityModalityLower Extremity, Ultrasound RST LOS, Ultrasound ARZ LOS, Ultrasound FLA LOSBilateralUltrasoundSpecimen (Source)Anatomical Location / LateralityCollection Method / VolumeCollection TimeReceived Time Impressions 05/14/2025 2:06 PM [facility] No change in this exam bilaterally. Narrative 05/14/2025 2:06 PM [facility] EXAM: US LOWER EXTREMITY VEINS BILATERAL Exam [...] and management can be found on the Welcome Real-time site. Link [email or web address] Procedure Note Dea Mims M.D. - 05/14/2025 [...] thrombosis and management can be found on theWelcome Real-time site. [email or web address] IMPRESSION: No change in this exam bilaterally. 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
--- OUTSIDE RECORDS SUMMARY | 2025-06-20 10:02 | XMS_ITS | Encounter Summary ---
Author Organization [facility] Address [address] [place] [address] Care Team Providers Care Round Boner Name Role Phone Elsewhere, Pcp Primary Care Provider Unavailabl e Encounter Details DateTypeDepartmentCare Team (Latest Contact Info)Qkvzlvjfoyb97/11/2025 Documentation Department of Vascular Medicine in [place], [place] [address] [place] [address] Andre Garcia M.D. [address] [place] [address] Social History Tobacco UseTypesPacks/DayYears UsedDateSmoking Tobacco: [id number] - 1977CigarsPassive Smoke Exposure: PastSmokeless Tobacco: NeverAlcohol [...] RecordedIn the past 12 months has the [employer], gas, oil, or water [employer] threatened to shut off services in your home?No01/27/2025Housing StabilityAnswerDate RecordedWhat is your living situation today?I have a steady place to live01/27/2025Education AnswerDate RecordedWhat is the highest level of school you have completed or the highest degree you have received?Qxaqknxhh20/16/2022ex and Gender Information ValueDate RecordedSex Assigned at YcjjrMfpz94/07/2018 1:03 PM CDTLegal SexMale 08/03/2016 5:25 PM CSTGender YzyuxrlfTzko27/07/2018 1:03 PM CDTSexual BxutvzervezObwkvtbp12/07/2018 1:03 PM CDTdocumented as of this encounter Progress Notes * Andre Garcia M.D. - 05/12/2025 8:31 AM CST ASSESSMENT PLAN #1 Left thigh fluid collection #2 Remote bilateral calf DVT and pulmonary embolism #3 Atrial fibrillation, CHADS2 Vasc score 3 #4 Multiple hip arthroplasty procedures with revisions. #5 Acute left femoral DVT #6 Retrievable IVC filter #7 Large PFO with bidirectional shunt. #8 Left soleal DVT #9 Lung nodules #10 Coronary artery disease #11 Exertional dyspnea Telephone call: US imaging of the leg veins revealed acute DVT in the right soleal vein (not visualized on 01/09/2025). Age indeterminate DV left posterior tibial veins not demonstrated on prior US (01/09/2025). Aging, incompletely recanalized thrombus in the left soleal vein. TTE reveals PFO yet primarily left to right shunt. Watchman is adequately placed. Recommendations: Leave IVC filter in place for now. Repeat US leg veins later this week to assess interval propagation (05/14/2025). CT venogram for IVC filter patency 05/14/2025 For now, my preference is to continue conservative monitoring without anticoagulants. Upper extremity vascular studies were reviewed. 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 These symptoms have been notable for one year. No ulcerations. All fingers both hands are affected.Toes also impacted though to a lesser degree. Recommendations: CTA chest with runoff I discussed these issues in detail with the patient and his by telephone and all questions answered. Andre Garcia II, MD [employer] documented in this encounter Plan of Treatment Not on file documented as of this encounter Visit Diagnoses Not on filedocumented in this encounter Additional Health Concerns AssessmentNoted TimePHQ-9 Depression Total Score: 1:04 PM CDT documented as of this encounter Care Teams Team MemberRelationshipSpecialtyStart DateEnd Date Elsewhere, Pcp PCP - GeneralFamily Medicine03/23/21documented as of this encounter
--- OUTSIDE RECORDS SUMMARY | 2025-06-20 10:03 | XMS_ITS | Encounter Summary ---
Author Organization [facility] Address [address] [place] [address] Care Team Providers Care Supervisor Dental Laboratory Name Role Phone Elsewhere, Pcp Primary Care Provider Unavailabl e Reason for Visit * ReasonOnset DateCommentsQuestion about DVT06/05/2025 Encounter Details DateTypeDepartmentCare Team (Latest Contact Info)Enmbzxitrbs27/05/2025linical Communication Department of Vascular Medicine in [place], [place] [address] [place] [address] Andre Garcia M.D. [address] [place] [phone] Question about DVT Social History Tobacco UseTypesPacks/DayYears UsedDateSmoking Tobacco: [id number] - 1975CigarsPassive Smoke Exposure: PastSmokeless Tobacco: NeverAlcohol [...] completed or the highest degree you have received?Yafqqrkic06/16/2022ex and Gender Information ValueDate RecordedSex Assigned at WlyngPbpz49/07/2018 1:03 PM CDTLegal SexMale 08/03/2016 5:25 PM CSTGender KltcadrjYsea24/07/2018 1:03 PM CDTSexual KmwmfmhdinoXvbqtoym68/07/2018 1:03 PM CDTdocumented as of this encounter Miscellaneous Notes * Telephone Encounter - Ashley Paiz Faustina - 06/05/2025 2:20 PM CST Holli from patient's local hospital called and asked if it would be okay for the patient to have an emergency IV sedation to remove a lesion. She said the patient had a watchman placement so I did connect her with Cyndee Antonio's office as she had seen the patient for that indication. She did ask if the patient's DVT would have any contraindication or if the patient was on any blood thinners. Dr. Garcia had last seen the patient 06/03/25 and is away from the clinic until Sunday06/08/25. Kira seen the patient 05/14/25. Holli would like a call back at [phone]. Can you please review in Dr. Garcia's absence? EE HOST documented in this encounter Plan of Treatment Not on file documented as of this encounter Visit Diagnoses Not on filedocumented in this encounter Additional Health Concerns AssessmentNoted TimePHQ-9 Depression Total Score: 1:04 PM CDT documented as of this encounter Care Teams Team MemberRelationshipSpecialtyStart DateEnd Date Elsewhere, Pcp PCP - GeneralFamily Medicine03/23/21documented as of this encounter
--- OUTSIDE RECORDS SUMMARY | 2025-06-20 10:03 | XMS_ITS | Clinical Summary ---
Author Organization [facility] Address [address] [place] [address] Care Team Providers Care Tool Machinist Name Role Phone Elsewhere, Pcp Primary Care Provider Unavailabl e Source Comments Patient records contain information from all sites at [facility]. For routine questions regarding patient records, call [phone] during business hours, M-F 8:00 AM - 5:00 PM Central Time. Record requests for emergency care only can be directed to [phone] at any time.[facility] Allergies Active AllergyReactionsCriticalityNoted DateCommentsAtorvastatinMyalgia 06/05/2014DaptomycinShortness of breath (Reselect Reaction)High08/16/2017 Listed on hosp discharge summary dated 08-15-17 GlutenOther (see comments)01/03/2011 based on family history and endoscopic f LactoseOther (see comments)12/17/2014 inflammation EnxwrshgnjSldwl73/05/2014MorphineOther (see comments)05/02/2016 Hypersensitivity and agitation Medications * This document contains information received from the source organization and may not represent a complete record from that organization. MedicationSigDispense QuantityRefillsLast FilledStart DateEnd DateStatus cholecalciferol (VITAMIN D3) tablet Take 5,000 Units by mouth daily.Active hydrocortisone (CORTAID) 1 % cream Apply topically as needed.07/22/2018Active pravastatin (PRAVACHOL) 40 mg tablet Take 40 mg by mouth at bedtime.1Active magnesium oxide-Mg AA chelate (magnesium, amino acid chelate,) 133 mg tablet Take 144 mg by mouth daily.Active sildenafiL (VIAGRA) 50 mg tablet Take 50 mg by mouth as needed.2Active levothyroxine (SYNTHROID, LEVOTHROID) 137 mcg tablet Take 137 mcg by mouth every morning before breakfast.Active candesartan (Atacand) 32 mg tablet Take 32 mg by mouth daily.Active amoxicillin (AmoxiL) 500 mg capsule Indications:Prophylaxis Subacute Bacterial EndocarditisTake 4 caps (2000 mg) 1 hour prior to procedure. 4 capsule 5Active acetaminophen-codeine (TylenoL #3) 300-30 mg per tablet Indications:Acute Pain ExceptionTake 1 tablet by mouth every 6 (six) hours as needed for severe pain or score 7-10 of 10 (rarely had to taje) Indications: Acute Pain Exception. 15 tablet 5Active amLODIPine (Norvasc) 2.5 mg tablet Take 1 tablet (2.5 mg total) by mouth daily. 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) 04/07/2025Nodules Pulmonary Aqnuynkg19/07/2025Hematoma Of Soft Tissue Pygtutvemcrl82/30/2025Lymphedema Ymwurjhkm83/30/2025trial Fibrillation Other Nvhbcsvrhp15/13/2025trial Fibrillation Longstanding Pdgqyqfgkb97/12/2025Patent Foramen Ovale5Acute Embolism And Thrombosis Of Left Femoral Vein 10/23/2024OVID-19 Xxqwzpzfq63/06/2021rimary Osteoarthritis Shoulder Right 05/24/2021Trigger Finger Thumb Right05/26/2020Primary Osteoarthritis Shoulder Left05/04/2020Aftercare Total Shoulder Slqjhmzilivx32/03/2020Pain Shoulder Left 03/29/2020 Overview (03/29/2020): Added automatically from request for surgery [id number] Carpal Tunnel Syndrome Left02/11/2020 Overview (02/11/2020): Added automatically from request for surgery [id number] Carpal Tunnel Syndrome Right02/11/2020 Overview (02/11/2020): Added automatically from request for surgery [id number] Primary Osteoarthritis Multiple Sites03/12/2018Non Celiac Gluten Sensitivity 03/12/2018Embolus Pulmonary Personal Rguzvxx8012/13/2017Embolism Pulmonary Septic 09/08/2017Atrial Fibrillation Pcelzxqfqly05/09/2018Infection Total Hip Arthroplasty Subsequent Left08/23/20171733Cxtdjagermfgfnoz59/22/2018 Overview (08/23/2017): At age 6 with recurrence at age 19 Rfiloi1408/23/2017 Overview (08/23/2017): Chronic normocytic Oqhgsbxmbmmgta82/22/2018Gastroesophageal Reflux Disease NOS08/23/2017Pain Thoracic Spine08/23/2017Primary Osteoarthritis Shoulder Qcyrdovfv36/22/2018 Obstructive Sleep Apnea Adult08/23/2017Pneumonia Eosinophilic Acute08/15/2017 Limitation Of Motion Hip Joint Left07/27/2017Bleeding Yrcgfxjj09/11/2018 Idiopathic Thrombocytopenic Purpura Personal Egfcisn8207/12/2017Hyperlipidemia 04/19/2017Splenectomy Total Status Post04/19/2017Hypertension Essential Primary 05/02/2016 Overview (11/21/2016): Hypertension (HTN) Chronic Polyp Colon Vkgqcgnfjai26/28/2015 Overview (08/23/2017): Overview: Colonoscopy 07/2014 polyp repeat in 5 years Difficulty Walking Orthopedic Hip Cause09/23/2010Celiac Luxatzi6910/28/2009 Overview (08/23/2017): Overview: EGD 09/2008 celiac disease Resolved Problems ProblemNoted DateDiagnosed DateResolved DateNecrosis Avascular Femoral Head And Neck Left Overview (08/23/2017): Overview: presumably from ITP. s/p bilateral total hip replacement Necrosis Avascular Femoral Head And Neck Right Encounters DateTypeDepartmentCare VwlnRrjpzujkvbk82/19/2025 11:42 AM GREEN [employer]IZE PACKER - 06/19/2025 11:59 PM CSTHospital Encounter Department of Radiology, [facility], in [place], [place] [address] [place] [address] Andre Garcia M.D. 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 Acute Embolism And Thrombosis Of Left Femoral Vein (HCC) Discharge Disposition: Home or Self Care5Clinical Communication Department of Vascular Medicine in [place], [place] [address] [place] [phone] Andre Garcia M.D. Question about DVT5Clinical Communication Department of Vascular Medicine in [place], [place] [address] [place] [phone] Andre Garcia M.D. Patient came in for emergent surgery - questions uknvhjqgw78/03/2025 11:00 AM CSTOffice Visit Department of Vascular Medicine in [place], [place] [address] [place] [address] Andre Garcia M.D. Acute Embolism And Thrombosis Of Left Femoral Vein (HCC) (Primary Dx)05/29/2025 2:00 PM CSTDiagnostic Division of Nephrology and Hypertension in [place], [place] [address] [place] [address] Andre Garcia M.D. Mitchell, Kristia M Raynaud's Disease; Hypertension Essential Primary; Atrial Fibrillation Unspecified (HCC); Embolism Pulmonary Septic (HCC)05/29/2025 1:36 PM GRE[employer]IZE PACKER - 05/29/2025 11:59 PM [facility] P[employer]ER Hospital Encounter Department of Radiology, [place], [place] [address] [place] [address] Andre Garcia M.D. Raynaud's Disease; Hypertension Essential Primary; Atrial Fibrillation Unspecified (HCC); Embolism Pulmonary Septic (HCC) Discharge Disposition: Home or Self Care05/19/2025linical Communication Department of Vascular Medicine in [place], [place] [address] [place] [address] Andre Garcia M.D. Phone Gbbvobm1405/18/2025 1:30 PM CSTVirtual Visit Department of Vascular Medicine in [place], [place] [address] [place] [address] Andre Garcia M.D. Raynaud's Disease (Primary Dx); Hypertension Essential Primary; Atrial Fibrillation Unspecified (HCC); Embolism Pulmonary Septic (HCC)05/14/2025 2:00 PM CSTOffice Visit Department of Vascular Medicine in [place], [place] [address] [place] [address] Duncan Allen M.D. Embolism Pulmonary Septic (HCC) (Primary Dx); Hematoma Of Soft Tissue Nontraumatic; Inferior Vena Cava Filter; Hypertension Essential Tvelufd5605/14/2025 11:24 AM GRE[employer]IZE P[employer]ER - 05/14/2025 11:59 PM [employer] P[employer]ER Hospital Encounter Department of Radiology, [facility], in [place], [place] [address] [place] [address] Duncan Allen M.D. Embolus Pulmonary Personal History; 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) Discharge Disposition: Home or Self Care05/14/2025 9:50 AM GRE[employer]IZE PACKER - 05/14/2025 11:23 AM CSTHospital Encounter Department of Laboratory Medicine and Pathology, [facility] in [place], [place] [address] [place] [address] Lindsey Lu APRN, C.N.P., M.S.N. 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 05/12/2025Documentation Department of Vascular Medicine in [place], [place] [address] [place] [address] Andre Garcia M.D. 05/11/2025 11:00 AM CSTTelemedicine Department of Radiology, [facility], in [place], [place] [address] [place] [address] Lindsey Lu APRN, C.NJennifer, M.S.N. Inferior Vena Cava Filter (Primary Dx)05/11/2025Orders Only [facility] [place] [place] [address] [place] [address] Lindsey Lu APRN, C.N.P., M.S.N. 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 Raynaud's Disease Discharge Disposition: Home or Self Care05/08/2025 11:02 AM GRE[employer] PRIZE PACKER - 05/08/2025 2:29 PM CSTHospital Encounter [place] [address] [place] [address] Andre Garcia M.D. Patent Foramen Ovale (HCC); Inferior Vena Cava Filter Discharge Disposition: Home or Self Care05/08/2025 10:13 AM GRE[employer] PRIZE PACKER - 05/08/2025 11:01 AM CSTHospital Encounter Department of Laboratory Medicine and Pathology, [facility] in [place], [place] [address] [place] [address] Andre Garcia M.D. 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) (Primary Dx); Embolus Pulmonary Personal Qnsyyil8004/29/2025Orders Only Department of Vascular Medicine in [place], [place] [address] [place] [phone] Andre Garcia M.D. Raynaud's Disease (Primary Dx)04/29/2025linical Communication Department of Orthopedic Surgery in [address] [address] Andres Bridges M.D. 04/20/2025 7:32 AM CDT - 04/20/2025 11:59 PM CDTHospital Encounter Department of Cardiovascular Diseases in [address] [address] Andre Garcia M.D. Patent Foramen Ovale (HCC); Inferior Vena Cava Filter Discharge Disposition: Home or Self Care04/20/2025Documentation Department of Vascular Medicine in [address] [address] Andre Garcia M.D. 04/20/2025Results Follow-Up Department of Vascular Medicine in [address] [address] Andre Garcia M.D. Echo Transthoracic (TTE), PET CT Cardiac Perfusion Rest and Himhjz4404/07/2025 3:15 PM CDTOffice Visit Department of Vascular Medicine in [address] [address] Andre Garcia M.D. 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); Nodules Pulmonary Hcvpczhs72/02/2025 11:15 AM CDTClinical Communication Virtual Review in [address] [address] Pre-visit Intakefrom Last 3 Months Immunizations ImmunizationAdministration DatesNext DueInfluenza Split04/01/2013,05/06/2012 Influenza, Seasonal, Usyxymvxie37/18/2010Influenza, Oomenbxekyq09/19/2017, 05/02/2016MCV4 (Menactra)(Discontinued)07/07/2016,05/02/2016MenB (BEXSERO) 05/30/2016,05/02/20163554IZZ8346/01/9236UQMC6665/06/2017,01/11/2011,08/02/2003 influenza trivalent high dose (HD)(PF)05/02/2017 Family History Medical HistoryRelationNameCommentsCoronary artery diseaseBrother 1Hypertension Brother 1Sleep apneaBrother 1Unexplained deathBrother 1Colon cancerFatherColon polypsFatherCoronary artery diseaseFatherHeart attackFatherHypertensionFather Unexplained deathFatherHypertensionMotherStomach cancerMotherColon polypsSister Coronary artery diseaseSisterDepressionSisterHypertensionSisterMelanomaSister Sleep apneaSisterRelationNameStatusCommentsBrother 1AliveBrother 2AliveBrother 3 AliveFatherDeceased (Age 78)MotherDeceased (Age 73)SisterAlive Social History Tobacco UseTypesPacks/DayYears UsedDateSmoking Tobacco: BnariqEsdufjyner636974 - 1976CigarsPassive Smoke Exposure: PastSmokeless Tobacco: Never [...] completed or the highest degree you have received?Anewdqaum29/16/2022ex and Gender Information ValueDate RecordedSex Assigned at BuvgqIyew52/07/2018 1:03 PM CDTLegal SexMale 08/03/2016 5:25 PM CSTGender MsvprgraGolw47/07/2018 1:03 PM CDTSexual CneuwyrckabVnmuaxui57/07/2018 1:03 PM CDT Last Filed Vital Signs Vital SignReadingTime TakenCommentsBlood Kbyabyke946/6624806/03/2025 10:41 AM GREEN PRIZE PACKER Gnbwl092806/03/2025 10:41 AM VQOOynfodglhqh12.6 ??C (97.9 ??F)02/03/2025 4:40 PM CDTRespiratory Offq643902/03/2025 6:15 PM CDTOxygen Moczqdfmtl65%02/03/2025 6:15 PM CDTInhaled Oxygen Concentration--Azxucx22.9 kg (202 lb 9.6 oz)06/03/2025 10:33 AM XDSSfuepf875.5 cm (5' 11.85)06/03/2025 10:33 AM CSTBody Mass Index 27.5906/03/2025 10:33 AM GREEN PRIZE PACKER Plan of Treatment Health MaintenanceDue DateLast DoneCommentsCT Bnhrxqjugsmh86/30/1952ologuard 1951Hepatitis C Undnyytdc13/30/1951HIB Vaccines (1 of 1 - Risk 1-dose series)10/29/1952Hepatitis A Vaccines (1 of 2 - Risk 2-dose series)1970RSV vaccine - (32-36 weeks) or 50+ years (1 - Risk 50-74 years 1-dose series)2001Hepatitis B Vaccines (1 of 3 - Risk 3-dose series)2011 MenB Vaccine (3 of 4 - Increased Risk Bexsero 3-dose series)05/30/2017 05/30/2016, 05/02/2016Thyroid Stimulating Hormone (TSH) test for thyroid dprofyug31, 10/22/2017, 08/23/2017, Additional history exists Office Visit for Blood Pressure Check / Re-check/08/2019 (Performed elsewhere)Meningococcal Vaccine (3 - Risk 2-dose series)/11/2016, 05/02/2016Depression Screening (Annual PHQ-2)07/02/2024OVID-19 Vaccine ( season), 08/26/2020Influenza Vaccine (#1)2025 05/02/2017, 04/19/2017, 05/02/2016, Additional history existsPotassium Level , 10/22/2024, 05/25/2021, Additional history existsSodium Level/06/2025, 10/22/2024, 05/25/2021, Additional history exists Creatinine Level (Kidney Function Test)609/03/2025, 01/28/2025, 12/11/2024, Additional history existsFasting Glucose for Diabetes Screening 806/06/2025, 10/22/2024, 05/25/2021, Additional history exists Qzvvvdxibck16, 12/02/2019, 07/02/2013Colorectal Cancer Gbdvbqoaqcys74/29/2029DTaP,Tdap,and Td Vaccines (2 - Td or Tdap)11/24/2029 11/25/2019Lipid (Cholesterol) Qyvxvatcb91, 02/06/2020 (Performed elsewhere), 06/11/2018, Additional history existsZoster Vaccines Bsupjeysg35/07/2020, 11/25/2019Pneumococcal vaccine (50+ years)Completed 07/20/2022, 07/07/2016, 05/02/2016, Additional history existsFall Risk Screen (Annual)Urjrxlbkx70/05/2025bdominal Aortic Aneurysm (AAA) ScreenCompleted 05/14/2025, 01/12/2025, 11/22/2010IPV VaccinesAged OutNo longer eligible based on patient's age to complete this topic Medical Devices ImplantedTypeAreaManufacturerDevice IdentifierShelf Expiration DateModel / Serial / LotPrtcl Emblztn Pva Cnt 500-710 - [id number] Implanted:Qty: 1 on 02/03/2025 [facility] ProductBelle[facility]09/16/[id number] / / [id number]-Ykunj 6.5 X 30mm - Jaimes [id number] Implanted:Qty: 1 on 03/09/1997Hardware e.g. pins/screws/rodsZimmer Biomet Description:Device Machine Plate Stacker - Nabor. Device Status Text - HARDWARE-7089. Screw-Hgpii S-Tap 6.5 X 40mm - Jaimes [id number] Implanted:Qty: 1 on 01/10/2011Hardware e.g. pins/screws/rodsZimmer Biomet Description:Device Machine Plate Stacker - Nabor. Device Status Text - HARDWARE-08747. Screw-Hgpii S-Tap 6.5 X 40mm - Jaimes [id number] Implanted:Qty: 1 on 06/21/2012Hardware e.g. pins/screws/rodsZimmer [employer]omet Description:Device Machine Plate Stacker - Nabor. Device Status Text - HARDWARE-82662. Screw-Hgpii S-Tap 6.5 X 35mm - Jaimes [id number] Implanted:Qty: 1 on 06/21/2012Hardware e.g. pins/screws/rodsZimmer [employer]omet Description:Device Machine Plate Stacker - Nabor. Device Status Text - HARDWARE-87608. Screw-Hgpii S-Tap 6.5 X 25mm - Jaimes [id number] Implanted:Qty: 1 on 06/21/2012Hardware e.g. pins/screws/rodsZimmer [employer]omet Description:Device Machine Plate Stacker - Nabor. Device Status Text - HARDWARE-41115. Screw-Hgpii S-Tap 6.5 X 20mm - Jaimes [id number] Implanted:Qty: 1 on 06/21/2012Hardware e.g. pins/screws/rodsZimmer [employer]omet Description:Device Machine Plate Stacker - Nabor. Device Status Text - HARDWARE-76949. Screw-Hgpii S-Tap 6.5 X 15mm - Jaimes [id number] Implanted:Qty: 4 on 06/21/2012Hardware e.g. pins/screws/rodsZimmer [employer]omet Description:Device Machine Plate Stacker - Nabor. Device Status Text - HARDWARE-22618. Scrw Lcd St Fthrd Nlck 6.5x30 - [id number] Implanted:Qty: 1 on 03/04/2019 by Andres Bridges M.D. at [facility] Hardware e.g. pins/screws/rodsLeft: HipDepuy Hsjltly909.030 / / Scrw Lcd St Fthrd Ti 6.5x60 - [id number] Implanted:Qty: 2 on 03/04/2019 by Andres Bridges M.D. at [facility] Hardware e.g. pins/screws/rodsLeft: HipDepuy Dxlfrzv049.060 / / Scrw Lcd St Fthrd Nlck 6.5x40 - [id number] Implanted:Qty: 1 on 03/04/2019 by Andres Bridges M.D. at [facility] Hardware e.g. pins/screws/rodsLeft: HipDepuy Binhswr028.040 / / Steele Aequalis Standard Glenosphere 36mm Implanted:Qty: 1 [facility]/20[facility] Center[facility] e.g. pins/screws/rodsRight: [id number] / [id number] / Kayla Aequalis Full-Wedge Augment Baseplate 29mm Implanted:Qty: 1 on [facility]/24/2021 [facility] CenterHard[facility] e.g. pins/screws/rodsRight: [id number] / [id number] / Steele 6.5mm X 30mm Center Screw Implanted:Qty: 1 on 05/24/2021 [facility] Center[facility] e.g. pins/screws/rodsRight: MibncdwiQgmqqqhCUZ792 / / Kayla 5.0mm X 30mm Peripheral Screw Implanted:Qty: 2 on 05/24/2021 by Declan Rivera [facility] at [facility] CenterHard[facility] e.g. pins/screws/rodsRight: EoobmospKpjlcenGDC263 / / Zim. Stem Fem Hernandez Por Small - Jaimes [id number] Implanted:Qty: 1 on 03/09/1997[facility] ImplantZimmer BiometDescription:Device Machine Plate Stacker - Nabor. Device Status Text - HIP IMP-54810.Zim. Head Short Neck 28m - Jaimes [id number] Implanted:Qty: 1 on 03/09/1997[facility] ImplantZimmer BiometDescription:Device Machine Plate Stacker - Nabor. Device Status Text - HIP IMP-3200.Zim. Shell Hgp Ii 54m - Jiames [id number] Implanted:Qty: 1 on 03/09/1997[facility] ImplantZimmer BiometDescription:Device Machine Plate Stacker - Nabor. Device Status Text - HIP IMP-3335.Zim. Insert Hgpii St F 28 X 54 - Jaimes [id number] Implanted:Qty: 1 on 03/09/1997[facility] ImplantZimmer BiometDescription:Device Machine Plate Stacker - Nabor. Device Status Text - HIP IMP-3322.Zim Insert Longevity 10 Deg 32x50 - Jaimes [id number] Implanted:Qty: 1 on 01/10/2011Hip ImplantOther/Legacy - See Implant Description Nabor BiometDescription:Device Machine Plate Stacker - Nabor. Body Location - Other. Right. Device Status Text - HIP IMP-772255.Hip Head Fem 6deg 32mm Short Plus - Jaimes [id number] Implanted:Qty: 1 on 01/10/2011Hip ImplantOther/Legacy - See Implant Description Nabor BiometDescription:Device Machine Plate Stacker - Nabor. Body Location - Other. Right. Device Status Text - HIP IMP-243606.Zim.-Liner Const Singh 15m23cb - Jaimes [id number] Implanted:Qty: 1 on 10/15/2012Hip ImplantOther/Legacy - See Implant Description Nabor BiometDescription:Device Machine Plate Stacker - Nabor. Body Location - Other. Not Applicable. Device Status Text - HIP IMP-241033.Conversions - Default Historical Implant Device Implanted:07/28/2017 (Quantity not on file)Hip ImplantLeft: HipDescription:Body Location - Hip L. Hip L. Device Status Text - Hip Imp.Triflanged Acetabular Component- Liner Sz 26 Implanted:Qty: 1 on 03/04/2019 by Andres Bridges M.D. at [facility] Hip ImplantLeft: HipZimmer [id number]/10/[id number] / / [id number] Locking Screw 25mm Implanted:Qty: 1 on 03/04/2019 by Andres Bridges M.D. at [facility] Hip ImplantLeft: HipZimmer [id number] / / [id number] Locking Screw 25mm Implanted:Qty: 1 on 03/04/2019 by Andres Bridges M.D. at [facility] Hip ImplantLeft: HipZimmer [id number] / / [id number] Locking Screw 20mm Implanted:Qty: 1 on 03/04/2019 by Andres Bridges M.D. at [facility] Hip ImplantLeft: HipZimmer [id number] / / [id number] Locking Screw 35mm Implanted:Qty: 1 on 03/04/2019 by Andres Bridges M.D. at [facility] Hip ImplantLeft: HipZimmer [id number] / / [id number] Locking Screw 40mm Implanted:Qty: 1 on 03/04/2019 by Andres Bridges M.D. at [facility] Hip ImplantLeft: HipZimmer [id number] / / [id number] Locking Screw 35mm Implanted:Qty: 1 on 03/04/2019 by Andres Bridges M.D. at [facility] Hip ImplantLeft: HipZimmer [id number] / / [id number] Locking Screw 35mm Implanted:Qty: 1 on 03/04/2019 by Andres Bridges M.D. at [facility] Hip ImplantLeft: HipZimmer [id number] / / [id number] Locking Screw 25mm Implanted:Qty: 1 on 03/04/2019 by Andres Bridges M.D. at [facility] Hip ImplantLeft: HipZimmer [id number] / / [id number] Locking Screw 25mm Implanted:Qty: 1 on 03/04/2019 by Andres Bridges M.D. at [facility] Hip ImplantLeft: HipZimmer [id number] / / [id number] Locking Screw 20mm Implanted:Qty: 1 on 03/04/2019 by Andres Bridges M.D. at [facility] Hip ImplantLeft: HipZimmer [id number] / / [id number] Distal Stem Sz 29mm- Acros Modular Revision Hip System Implanted:Qty: 1 on 03/04/2019 by Andres Bridges M.D. at [facility] Hip ImplantLeft: HipZimmer [id number] / / [id number] Cone Proximal Body Type 1 Taper Sz D, Standard Offest 80mm Implanted:Qty: 1 on 03/04/2019 by Andres Bridges M.D. at [facility] Hip ImplantLeft: HipZimmer [id number] / / [id number] Ringloc Constrained Liner Arcom +5mm Standard Face Sz 26mm Implanted:Qty: 1 on 03/04/2019 by Andres Bridges M.D. at [facility] Hip ImplantLeft: HipZimmer [id number] / / [id number] Frdm +3x36 - [id number] Implanted:Qty: 1 on 03/04/2019 by Andres Bridges M.D. at [facility] Hip ImplantLeft: HipZimmer [id number] / / [id number] Bone [place] 24mm - Jaimes 470 Implanted:Qty: 1 on 03/09/1997Mes or PatchStrykerDescription:Device Machine Plate Stacker - Steele Florencia.. Device Status Text - MESHPATCH-470.Dev Lanie Cls [facility] Pro Del Sys 31 - [id number] Implanted:Qty: 1 on 12/12/2024 by [facility]izak [facility]lejo [facility]/A: HeartBoston Aidhbfoiks17/09/[id number] / / [id number] Bone Large - Jaimes 2840 Implanted:Qty: 2 on 03/09/1997Misc OtherStrykerDescription:Device Machine Plate Stacker - Steele Florencia.. Device Status Text - MISCOTHER-2840.Cement Bone Small - Jaimes [id number] Implanted:Qty: 1 on 03/09/1997Misc OtherStrykerDescription:Device Machine Plate Stacker - Kayla Florencia.. Device Status Text - MISCOTHER-2841.Cement Bone Large - Jaimes 2840 Implanted:Qty: 1 on 01/10/2011Misc OtherStrykerDescription:Device Machine Plate Stacker - Kayla Florencia.. Device Status Text - MISCOTHER-2840.Cement Bone Large - Jaimes 2840 Implanted:Qty: 1 on 06/21/2012Misc OtherStrykerDescription:Device Machine Plate Stacker - Steele Florencia.. Device Status Text - MISCOTHER-2840.Cement Bone Small - Jaimes 2841 Implanted:Qty: 1 on 10/15/2012Misc OtherStrykerDescription:Device Machine Plate Stacker - Steele Florencia.. Device Status Text - MISCOTHER-2841.Cement Bone Small - Jaimes 2841 Implanted:Qty: 1 on 07/25/2017Misc OtherStrykerDescription:Device Machine Plate Stacker - Kayla Florencia.. Device Status Text - MISCOTHER-2841.Cement Bone Large - Jaimes 2840 Implanted:Qty: 3 on 07/25/2017Misc OtherStrykerDescription:Device Machine Plate Stacker - Kayla Florencia.. Device Status Text - MISCOTHER-2840.Full-Wedge Baseplate, 29mm 15 Deg Implanted:Qty: 1 on 05/04/2020 by Declan Rivera M.D. at [facility] ImplantLeft: [facility] [id number]/ [id number] / [id number] / Press-Fit Short Post, 7mm Implanted:Qty: 1 on 05/04/2020 by Declan Rivera M.D. at [facility] ImplantLeft: ShoulderCrook [id number]/10/2024 JFH437 / [id number] / Standard Glenosphere, 36mm Implanted:Qty: 1 on 05/04/2020 by Declan Rivera M.D. at [facility] ImplantLeft: ShoulderWrjohn d. [facility] [id number]/04/2025 WHY166 / [id number] / Hum Cup Reu 4x36 - [id number] Implanted:Qty: 1 on 05/04/2020 at [facility] Implant Left: RhgljkwpDpmnkas58/20/[id number] / / [id number] Ins Reu Rvrs 6x36 - [id number] Implanted:Qty: 1 on 05/04/2020 by Declan Rivera M.D. at [facility] ImplantLeft: AvzqlenzUfbxztt35/18/[id number]-4520 / / [id number] Stm Reu S 76f159 - [id number] Implanted:Qty: 1 on 05/04/2020 at [facility] Implant Left: [id number] / / [id number] Peripheral Screw, 30mm Implanted:Qty: 3 on 05/04/2020 by Declan Rivera M.D. at [facility] ImplantLeft: ShoulderWright TgxdcdsECV675 / / Hum Ins Reu Rvrs 4x36 - [id number] Implanted:Qty: 1 on 05/24/2021 at [facility] Implant Right: MdhjyiauQvvczls53/29/[id number]-6814 / / [id number] Cup Reu 4x36 - [id number] Implanted:Qty: 1 on 05/24/2021 at [facility] Implant Right: FrkledlfFdydiig71/14/[id number] / / [id number] Stm Reu S 34s687 - [id number] Implanted:Qty: 1 on 05/24/2021 by Declan Rivera M.D. at [facility] ImplantRight: [id number]/12/2023 5567-P-3016 / / [id number]uiyvrVvyiny IdentifierShelf Expiration DateModel / Serial / LotLeft Hip Solut - Jaimes [id number] Explanted:Qty: 1 on 07/25/2017Hip ImplantDescription:Device Status Text - HIP IMP-[id number].Implex-Shell [place] 64mm - Jaimes [id number] Explanted:Qty: 1 on 07/25/2017Hip ImplantOther/Legacy - See Implant Description Nabor BiometDescription:Device Machine Plate Stacker - Nabor. Body Location - Other. Left. Device Status Text - HIP IMP-703835.Dep. Head 32m + 15 Nk - Jaimes [id number] Explanted:Qty: 1 on 07/25/2017Hip ImplantOther/Legacy - See Implant Description Diallo & Diallo Services IncDescription:Device Machine Plate Stacker - [employer]. Body Location - Other. Left. Device Status Text - HIP IMP-712650.Zim.-Liner Const Singh 44v13ke - Jaimes [id number] Explanted:Qty: 1 on 07/25/2017Hip ImplantOther/Legacy - See Implant Description Nabor BiometDescription:Device Machine Plate Stacker - Nabor. Body Location - Other. Left. Device Status Text - HIP IMP-358447.Stem Prostalac Sz 3 Lt Buhl - Jaimes [id number] Implanted:Qty: 1 on 07/25/2017 Explanted:Qty: 1 on 03/04/2019 by Andres Bridges M.D.Hip ImplantOther/Legacy - See Implant DescriptionJohnson & Diallo Services IncDescription:Device Machine Plate Stacker - [employer]. Body Location - Other. Left. Device Status Text - HIP IMP-[id number].Cup Prostalac Acetabular 42mm X32mm - Jaimes [id number] Implanted:Qty: 1 on 07/25/2017 Explanted:Qty: 1 on 03/04/2019 by Andres Bridges M.D.Hip ImplantOther/Legacy - See Implant DescriptionJohnson & Diallo Services IncDescription:Device Machine Plate Stacker - [employer]. Body Location - Other. Left. Device Status Text - HIP [id number].Dep. Head Prodigy 32 + 9.0 - Jaimes [id number] Implanted:Qty: 1 on 07/25/2017 Explanted:Qty: 1 on 03/04/2019 by Andres Bridges M.D.Hip ImplantOther/Legacy - See Implant DescriptionJohnson & Diallo Services IncDescription:Device Machine Plate Stacker - [employer]. Body Location - Other. Left. Device Status Text - HIP IMP-[id number]. 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) US LOWER EXTREMITY VEINS BILATERALRAD - Routine (most inpatients and all outpatients)06/11/2025 2:22 PM GREEN PRIZE PACKER Acute Embolism And Thrombosis Of Left Femoral Vein (HCC) NEP BLOOD PRESSURE CHECK 6 RBFmfonyb98/01/2025 7:59 AM GREEN PRIZE PACKER Raynaud's Disease Hypertension Essential Primary Atrial Fibrillation Unspecified (HCC) Embolism Pulmonary Septic (HCC) US LOWER EXTREMITY VEINS BILATERALRAD - Routine (most inpatients and all outpatients)05/29/2025 3:01 PM GREEN PRIZE PACKER Raynaud's Disease Hypertension Essential Primary Atrial Fibrillation Unspecified (HCC) Embolism Pulmonary Septic (HCC) US LOWER EXTREMITY VEINS BILATERALRAD - Routine (most inpatients and all outpatients)05/14/2025 1:50 PM GREEN PRIZE PACKER Embolus Pulmonary Personal History 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) C-REACTIVE PROTEIN (CRP), S/XHimauwo66/13/2025 10:28 AM GREEN PRIZE PACKER Acute Embolism And Thrombosis Of Left Femoral Vein (HCC) Embolism Pulmonary Septic (HCC) Atrial Fibrillation Unspecified (HCC) Atherosclerotic Heart Disease [place] 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) Anemia Thrombocytopenia Inferior Vena Cava Filter CBC WITH DIFFERENTIAL, KZncywba29/13/2025 10:28 AM GREEN PRIZE PACKER Acute Embolism And Thrombosis Of Left Femoral Vein (HCC) Embolism Pulmonary Septic (HCC) Atrial Fibrillation Unspecified (HCC) Atherosclerotic Heart Disease [place] 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) Anemia Thrombocytopenia Inferior Vena Cava Filter CT ABDOMEN PELVIS VENOGRAM WITH IV CONTRASTRAD - Routine (most inpatients and all outpatients)05/14/2025 10:17 AM GREEN PRIZE PACKER Acute Embolism And Thrombosis Of Left Femoral Vein (HCC) Embolism Pulmonary Septic (HCC) Atrial Fibrillation Unspecified (HCC) Atherosclerotic Heart Disease [place] 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) Anemia Thrombocytopenia Inferior Vena Cava Filter UPPER EXTREMITY ARTERIAL - VASOSPASM (RAYNAUD)Rmwdzfk8905/08/2025 4:26 PM GREEN PRIZE PACKER Raynaud's Disease US LOWER EXTREMITY VEINS BILATERALRAD - Routine (most inpatients and all outpatients)05/08/2025 2:03 PM GREEN PRIZE PACKER Patent Foramen Ovale (HCC) Inferior Vena Cava Filter PET CT CARDIAC PERFUSION REST AND STRESSRAD - Routine (most inpatients and all outpatients)05/08/2025 11:50 AM GREEN PRIZE PACKER Shortness Of Breath Atherosclerotic Heart Disease [place] 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) LIPID PANEL, PMzbjlub86/07/2025 10:30 AM GREEN PRIZE PACKER Shortness Of Breath Atherosclerotic Heart Disease [place] 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) OUTSIDE DX PUCORIXVAuftvuj10/29/2025 1:15 PM CDT (TTE) 2D LIMITED WITH COLOR AND XJYTGXQXAvqcwra49/20/2025 8:30 AM CDT Patent Foramen [place]vale (HCC) Inferior Vena Cava Filter CREATININE WITH EGFR, S/TJdbgwng25/09/2025 12:03 PM CDT Atrial Fibrillation Unspecified (HCC) Dyspnea COMPREHENSIVE METABOLIC PANEL, S/WNvyomzj69/12/2025 12:04 PM CDT Atrial Fibrillation Unspecified (HCC) THYROID FUNCTION CASCADE, QScuezhr36/25/2018 4:05 PM CDT Hypothyroidism On Replacement from Last 3 Months or Most Recently Relevant to Health Maintenance Results * US Carotid Bilateral (06/19/2025 12:28 PM GREEN PRIZE PACKER)Anatomical RegionLaterality ModalityHead and Neck, Ultrasound RST LOS, Ultrasound ARZ LOS, Neuroradiology FLA LOS, Procedural, VascularInterventional NWWI LOSBilateralUltrasound Specimen (Source)Anatomical Location / LateralityCollection Method / Volume Collection TimeReceived Time Impressions 06/19/2025 12:49 PM GREEN PRIZE PACKER No significant stenosis in the carotid arteries bilaterally. Narrative 06/19/2025 12:49 PM GREEN PRIZE PACKER EXAM: US CAROTID BILATERAL Exam performed with [...] normal distal ICA in accordance with [place] Symptomatic Carotid Endarterectomy Trial (NASCET). Procedure Note [...] carotid arteries bilaterally. Authorizing ProviderResult TypeResult StatusRobert D McBane M.D.IMG US PROCEDURESFinal Result * US Lower Extremity Veins Bilateral (06/11/2025 2:22 PM GREEN PRIZE PACKER) Only the most recent of4 resultswithin the time period is included. Anatomical RegionLateralityModalityLower Extremity, Ultrasound RST LOS, Ultrasound ARZ LOS, Ultrasound FLA LOSBilateralUltrasoundSpecimen (Source) Anatomical Location / LateralityCollection Method / VolumeCollection Time Received Time Impressions 06/11/2025 2:29 PM GREEN PRIZE PACKER No substantial change since 05/29/2025. Aging, incompletely recanalized thrombus within the calf veins bilaterally. Narrative 06/11/2025 2:29 PM GREEN PRIZE PACKER EXAM: US LOWER EXTREMITY VEINS BILATERAL Exam [...] and management can be found on the [employer] site. Link [email or web address] Procedure Note Tim Brooke M.D. - 06/11/2025 [...] management can be found on the[facility] site. [email or web address] IMPRESSION: No substantial change since 05/29/2025. Aging, incompletely recanalizedthrombus within the calf veins bilaterally. Authorizing ProviderResult TypeResult StatusAndre Garcia M.D.IMG US PROCEDURESFinal Result * NEP Blood pressure check 6 hr (06/01/2025 7:59 AM GREEN PRIZE PACKER)Specimen (Source) Anatomical Location / LateralityCollection Method / VolumeCollection Time Received Time Narrative Authorizing ProviderResult TypeResult StatusAndre Garcia M.D.PFT ORDERABLES Final ResultPerforming OrganizationAddressCity/State/ZIP CodePhone Number MMODAL NA * (ABNORMAL) CBC with Differential, Blood (05/14/2025 10:28 AM GREEN PRIZE PACKER)Component ValueRef RangeTest MethodAnalysis TimePerformed AtPathologist Signature Oumufrjgns05.4(L)13.2 - 16.6 g/dL05/14/2025 11:16 AM BPGYSYBiuanewgkc91.4(L) 38.3 - 48.6 %05/14/2025 11:16 AM CSTDTLErythrocytes3.44(L)4.35 - 5.65 x10(12)/L107/14/2024 11:16 AM MKGKWCNLS17.178.2 - 97.9 fL05/14/2025 11:16 AM CSTDTLRBC Distrib Width21.4(H)11.8 - 14.5 %05/14/2025 11:16 AM CSTDTLPlatelet Ootpi349517 - 317 x10(9)/L107/14/2024 11:16 AM CSTDTLLeukocytes6.43.4 - 9.6 x10(9)/L107/14/2024 11:16 AM CSTDTLNeutrophils3.161.56 - 6.45 x10(9)/L 05/14/2025 11:16 AM CSTDHPMLymphocytes1.570.95 - 3.07 x10(9)/L107/14/2024 11:16 AM CSTDTLMonocytes1.47(H)0.26 - 0.81 x10(9)/L107/14/2024 11:16 AM CSTDTL Eosinophils0.130.03 - 0.48 x10(9)/L107/14/2024 11:16 AM CSTDTLBasophils0.060.01 - 0.08 x10(9)/L107/14/2024 11:16 AM CSTDTLSpecimen (Source)Anatomical Location / LateralityCollection Method / VolumeCollection TimeReceived TimeBlood (Blood, Venous)05/14/2025 10:28 AM CST05/14/2025 10:56 AM GREEN PRIZE PACKER Narrative Authorizing ProviderResult TypeResult StatusLindsey Lu APRN, C.N.P., M.S.N.LAB BLOOD ADD-ONFinal ResultPerforming OrganizationAddressCity/State/ZIP CodePhone Number [facility] [address] [place] [address], [place] D[place] [facility] [place] [facility] [place] [address] [place] [address] [facility] [address] [place] [address] * (ABNORMAL) CRP (C-Reactive Protein) (05/14/2025 10:28 AM GREEN PRIZE PACKER)ComponentValueRef RangeTest MethodAnalysis TimePerformed AtPathologist SignatureC-Reactive Protein (CRP), S5.3(H)<5.0 mg/L107/14/2024 11:59 AM CSTDTLSpecimen (Source) Anatomical Location / LateralityCollection Method / VolumeCollection Time Received TimeBlood (Blood, Venous)05/14/2025 10:28 AM CST05/14/2025 10:53 AM GREEN PRIZE PACKER Narrative Authorizing ProviderResult TypeResult StatusSherry X Ge SERVICE MEMBER, C.N.P., M.S.N.LAB BLOOD ADD-ONFinal ResultPerforming OrganizationAddressCity/State/ZIP CodePhone Number [facility] [address] [place] [address], [place] D[place] [facility] [place] [facility] [place] [address] [place] [address] * CT Abdomen Pelvis Venogram with IV Contrast (05/14/2025 10:17 AM GREEN PRIZE PACKER) Anatomical RegionLateralityModalityAbdomen, Pelvis, Cardiovascular RST LOS, Abdominal ARZ LOS, Vascular Interventional FLA LOS, Procedural, Vascular Interventional NWWI LOSN/AComputed Tomography, Computed TomographySpecimen (Source)Anatomical Location / LateralityCollection Method / VolumeCollection TimeReceived Time05/14/2025 10:10 AM GREEN PRIZE PACKER Impressions 05/14/2025 10:11 AM GREEN PRIZE PACKER The IVC is patent with an infrarenal IVC filter in place. Minimal penetration of the caval filter to the caval wall. Remainder unchanged. Narrative 05/14/2025 10:11 AM GREEN PRIZE PACKER EXAM: CT ABDOMEN PELVIS VENOGRAM WITH IV [...] Remainder unchanged. Authorizing ProviderResult TypeResult StatusSherry X Wide[employer] CARLIN, C.N.P., M.S.N.IMG CT PROCEDURESFinal Result * Upper Extremity Arterial - Vasospasm (Raynaud) (05/08/2025 4:26 PM GREEN PRIZE PACKER) Anatomical RegionLateralityModalityOtherSpecimen (Source)Anatomical Location / LateralityCollection Method / VolumeCollection TimeReceived Time05/08/2025 2:42 PM GREEN PRIZE PACKER Narrative 05/08/2025 4:44 PM GREEN PRIZE PACKER Right: Doppler Waveform (arm): Normal at all [...] studies available for comparison. Authorizing ProviderResult TypeResult StatusAndre Garcia M.D.CV VASCULAR PROCEDURESFinal Result * PET CT Cardiac Perfusion Rest and Stress (05/08/2025 11:50 AM GREEN PRIZE PACKER)Specimen (Source)Anatomical Location / LateralityCollection Method / VolumeCollection TimeReceived Time05/08/2025 8:29 AM GREEN PRIZE PACKER Narrative DELTA MERGE - 05/08/2025 1:47 PM GREEN PRIZE PACKER See PDF For Result Procedure Note Adlo Patel M.D. - 05/08/2025 See PDF For Result Authorizing ProviderResult TypeResult StatusAndre Garcia M.D.IM NM PROCEDURESFinal ResultPerforming OrganizationAddressCity/State/ZIP CodePhone Number Credible KATIE NA * Lipid Panel (05/08/2025 10:30 AM GREEN PRIZE PACKER)ComponentValueRef RangeTest Method Analysis TimePerformed AtPathologist MfccpgzqfCmagqokfzmmez66eh/dL05/08/2025 11:30 AM CSTDTLComment: ----REFERENCE VALUE---- Normal: <150 mg/dL Borderline High: 150-199 mg/dL High: 200-499 mg/dL Very High: > or =500 mg/dL Cholesterol, Pqbls008dp/dL05/08/2025 11:30 AM CSTDTLComment: ----REFERENCE VALUE---- Desirable: < 200 mg/dL Borderline High: 200 - 239 mg/dL High: > or = 240 mg/dL Cholesterol, LDL, Sdbzbsewjd58ym/dL05/08/2025 11:30 AM CSTDTLComment: ----REFERENCE VALUE---- Desirable: <100 mg/dL Above Desirable: 100-129 mg/dL Borderline High: 130-159 mg/dL High: 160-189 mg/dL Very High: >=190 mg/dL ----ADDITIONAL INFORMATION---- LDL cholesterol calculated using the Richardson/NIH equation. Cholesterol, HDL, S51>=40 mg/dL05/08/2025 11:30 AM CSTDTLCholesterol, Non-HDL, Zcpalaybjq50gr/dL05/08/2025 11:30 AM CSTDTLComment: ----REFERENCE VALUE---- Desirable: <130 mg/dL Above Desirable: 130-159 mg/dL Borderline High: 160-189 mg/dL High: 190-219 mg/dL Very High: > or =220 mg/dL Fasting (8 HR or more)Yes05/08/2025 10:30 AM CSTDTLSpecimen (Source)Anatomical Location / LateralityCollection Method / VolumeCollection TimeReceived TimeBlood (Blood, Venous)05/08/2025 10:30 AM CST05/08/2025 10:52 AM GREEN PRIZE PACKER Narrative Authorizing ProviderResult TypeResult StatusRobert Rony Garcia M.D.LAB BLOOD ADD-ON Final ResultPerforming OrganizationAddressCity/State/[place] [address], [facility] [place] [address] * XR KNEE [place] [facility] LT-Outside Skeletal Xray (04/29/2025 1:15 PM CDT)Specimen (Source)Anatomical Location / LateralityCollection Method / VolumeCollection TimeReceived Time Narrative IIMS - 05/04/2025 10:03 AM GREEN PRIZE PACKER This order has been created and auto-finalized to support the import of outside images. If available, original interpretation can be found on the Media Tab in Chart Review, in Document Viewer, as an image in InfinityView or as an Addendum. If a re-interpretation or overread is required please follow defined workflow. ?? Authorizing ProviderResult TypeResult StatusProvider Not In SystemIMG DIAGNOSTIC IMAGING PROCEDURESFinal ResultPerforming OrganizationAddressCity/State/ZIP Code Phone Number IIMS NA * (TTE) 2D LIMITED WITH COLOR AND CONTRAST (04/20/2025 8:30 AM CDT)Component ValueRef RangeTest MethodAnalysis TimePerformed AtPathologist Signature Ejection Pmtfhkaf31ME CV EIMSLV End-Diastolic Gcdjijws47NC CV EIMSLV End- Systolic Lsinumbx19JF CV EIMSAnatomical RegionLateralityModality EchocardiographySpecimen (Source)Anatomical Location / LateralityCollection Method / VolumeCollection TimeReceived Time04/20/2025 7:46 AM CDT Impressions 04/20/2025 9:08 AM CDT Status post WATCHMAN left atrial appendage occlusion device placement (12-DEC-2024) Echocardiogram performed per post left atrial appendage occlusion device protocol. LEFT VENTRICLE:Mildly enlarged left ventricular chamber size. Normal left ventricular geometry. Calculated 2-D linear left ventricular ejection fraction 63%. No regional wall motion abnormalities. Indeterminate left ventricular diastolic function. RIGHT VENTRICLE:Mildly enlarged right ventricular chamber size by visual estimate. Borderline reduced right ventricular systolic function. ATRIA:Moderately enlarged left atrial size by visual estimate. Severely enlarged right atrial size by visual estimate. CARDIAC VALVES:Trileaflet aortic valve. Sclerotic aortic valve. Trivial aortic valve regurgitation.Mitral valve bowing. Mildly thickened mitral valve. Mild- moderate mitral valve regurgitation (2 jets). Normal pulmonary valve. Trivial pulmonary valve regurgitation. Mildly thickened tricuspid valve. Mild tricuspid valve regurgitation. OTHER ECHO FINDINGS:Kvvk-na-fldcs shunt at atrial level by color Doppler. Positive for atrial levelshunt by agitated saline contrast injection. No intracardiac mass or thrombus, but the left atrial appendage cannot be visualized adequately with transthoracic echo to exclude thrombus in this location. No ??pericardial effusion. Agitated salineinjection(s) performed. For the complete report, see the Order-Level Documents. Narrative 04/20/2025 9:08 AM CDT For the complete report, see the Order-Level Documents. Hemodynamics Heart Rate: 56 BPM Blood Pressure: 164 / 85 mmHg ECG: Atrial fibrillation Final Impressions 1. Echocardiogram performed per post left atrial appendage occlusion device protocol. 2. Status post WATCHMAN left atrial appendage occlusion device placement (12-DEC-2024) 3. Mildly enlarged left ventricular chamber size, no regional wall motion abnormalities , calculated left ventricular ejection fraction 63%. 4. Left atrial pressure is 10 mmHg higher than RA pressure based on trans-atrial Doppler gradient. RA pressure was not estimated due to the focus nature of today's study. 5. Mildly enlarged right ventricular chamber size by visual estimate with borderline reduced systolic function. 6. Prominent tmwz-kz-uaunz atrial level shunt by color Doppler. Trivial zbbbc-el-sjub atrial level shunt with Valsalva. 7. Sclerotic aortic valve with focal calcification of the noncoronary cusp; trivial regurgitation. 8. Mild-moderate mitral valve regurgitation. 9. Mild tricuspid valve regurgitation with respirophasic variation (mild- moderate with inspiration). 10. No ??pericardial effusion. 11. Compared to the report of 12/10/2024 no significant change has occurred. Side by side comparison of images performed. Procedure Note Jesús Wallis M.D., Ph.D. - 04/20/2025 For the complete report, see the Order-Level Documents. Hemodynamics Heart Rate: 56 BPM Blood Pressure: 164 / 85 mmHg ECG: Atrial fibrillation Final Impressions 1. Echocardiogram performed per post left atrial appendage occlusiondevice protocol. 2. Status post WATCHMAN left atrial appendage occlusion device placement (12-DEC-2024) 3. Mildly enlarged left ventricular chamber size, no regional wall motion abnormalities , calculated left ventricular ejection fraction 63%. 4. Left atrial pressure is 10 mmHg higher than RA pressure based ontrans-atrial Doppler gradient. RA pressure was not estimated due to thefocus nature of today's study. 5. Mildly enlarged right ventricular chamber size by visual estimate with borderline reduced systolic function. 6. Prominent yxbc-qg-vrnlg atrial level shunt by color Doppler. Trivial ytffe-xx-hetu atrial level shunt with Valsalva. 7. Sclerotic aortic valve with focal calcification of the noncoronarycusp; trivial regurgitation. 8. Mild-moderate mitral valve regurgitation. 9. Mild tricuspid valve regurgitation with respirophasic variation(mild-moderate with inspiration). 10. No pericardial effusion. 11. Compared to the report of 12/10/2024 no significant change hasoccurred. Side by side comparison of images performed. Findings Status post WATCHMAN left atrial appendage occlusion device placement (12-DEC-2024) Echocardiogram performed per post left atrial appendageocclusion device protocol. LEFT VENTRICLE:Mildly enlarged left ventricular chamber size. Normal left ventricular geometry. Calculated 2-D linear left ventricular ejectionfraction 63%. No regional wall motion abnormalities. Indeterminate leftventricular diastolic function. RIGHT VENTRICLE:Mildly enlarged right ventricular chamber size by visual estimate. Borderline reduced right ventricular systolic function. ATRIA:Moderately enlarged left atrial size by visual estimate. Severelyenlarged right atrial size by visual estimate. CARDIAC VALVES:Trileaflet aortic valve. Sclerotic aortic valve. Trivialaortic valve regurgitation. Mitral valve bowing. Mildly thickened mitralvalve. Mild- moderate mitral valve regurgitation (2 jets). Normal pulmonaryvalve. Trivial pulmonary valve regurgitation. Mildly thickened tricuspidvalve. Mild tricuspid valve regurgitation. OTHER ECHO FINDINGS:Xoav-uv-agywc shunt at atrial level by color Doppler. Positive for atrial level shunt by agitated saline contrast injection. No intracardiac mass or thrombus, but the left atrial appendage cannot bevisualized adequately with transthoracic echo to exclude thrombus in thislocation. No pericardial effusion. Agitated saline injection(s)performed. For the complete report, see the Order-Level Documents. Authorizing ProviderResult TypeResult StatusRobert Rony Garcia M.D.CV ECHO PROCEDURESFinal Result * Creatinine with Estimated GFR (03/10/2025 12:03 PM CDT)ComponentValueRef Range Test MethodAnalysis TimePerformed AtPathologist SignatureCreatinine0.900.74 - 1.35 mg/dL03/10/2025 1:01 PM CDTDTLEstimated GFR (eGFR)>90>=60 mL/min/BSA 03/10/2025 1:01 PM CDTDTLComment: Estimated GFR calculated using the 2020 CKD_EPI creatinine equation. Specimen (Source)Anatomical Location / LateralityCollection Method / Volume Collection TimeReceived TimeBlood (Blood, Venous)03/10/2025 12:03 PM CDT 03/10/2025 12:22 PM CDT Narrative Authorizing ProviderResult TypeResult StatusRaphoenix Antonio P.A.-C., M.S.LAB BLOOD ADD-ONFinal ResultPerforming OrganizationAddressCity/State/ZIP CodePhone Number [facility] [address] [place] [address], [place] DTL [facility] [place] [facility] [place] [address] [place] [address] * (ABNORMAL) Comprehensive Metabolic Panel (12/11/2024 12:04 PM CDT)Component ValueRef RangeTest MethodAnalysis TimePerformed AtPathologist Signature Potassium, S5.3(H)3.6 - 5.2 mmol/L12/11/2024 1:10 PM CDTDTLSodium, Q359979 - 145 mmol/L12/11/2024 1:10 PM CDTDTLChloride, S9998 - 107 mmol/L12/11/2024 1:10 PM CDTDTLBicarbonate, S2422 - 29 mmol/L12/11/2024 1:10 PM CDTDTLAnion Xxk136 - 15012/11/2024 1:10 PM CDTDTLBUN (Blood Urea Nitrogen), S188 - 24 mg/dL 12/11/2024 1:10 PM CDTDTLCreatinine0.910.74 - 1.35 mg/dL12/11/2024 1:10 PM CDT DTLEstimated GFR (eGFR)89>=60 mL/min/BSA12/11/2024 1:10 PM CDTDTLComment: Estimated GFR calculated using the 2020 CKD_EPI creatinine equation. Calcium, Total, S9.58.8 - 10.2 mg/dL12/11/2024 1:10 PM CDTDTLGlucose, S8870 - 140 mg/dL12/11/2024 1:10 PM CDTDTLProtein, Total, S7.76.3 - 7.9 g/dL12/11/2024 1:10 PM CDTDTLAlbumin, S4.63.5 - 5.0 g/dL12/11/2024 1:10 PM CDTDTLAspartate Aminotransferase (AST), S358 - 48 U/L12/11/2024 1:10 PM CDTDTLAlkaline Phosphatase, T03756 - 129 U/L12/11/2024 1:10 PM CDTDTLAlanine Aminotransferase (ALT), S227 - 55 U/L12/11/2024 1:10 PM CDTDTLBilirubin, Total, S1.20.0 - 1.2 mg/dL12/11/2024 1:10 PM CDTDTLSpecimen (Source)Anatomical Location / Laterality Collection Method / VolumeCollection TimeReceived TimeBlood (Blood, Venous) 12/11/2024 12:04 PM CDT12/11/2024 12:41 PM CDT Narrative Authorizing ProviderResult TypeResult StatusRachel Anusha Antonio P.A.-C. M.S.LAB BLOOD ADD-ONFinal ResultPerforming OrganizationAddressCity/State/ZIP CodePhone Number [facility] [address] [place] [address], [facility] DTL [facility] [place] [facility] [place] [address] [place] [address] * Thyroid Function [place] (11/23/2017 4:05 PM CDT)ComponentValueRef RangeTest MethodAnalysis TimePerformed AtPathologist SignatureTSH, Sensitive0.50.3 - 4.2 mIU/L11/23/2017 6:34 PM CDMONTICELLO HOSPITAL LABComment: Biotin has been identified by the aircraft structural fitter as a potential interfering substance. ??Higher concentrations of biotin may be found in multivitamins, hair/nail supplements, and workout supplements. ??If the result does not match clinical observations, repeat testing after patient refrains from the use of supplements for at least 12 hours. Specimen (Source)Anatomical Location / LateralityCollection Method / Volume Collection TimeReceived DmjlOsayx05/25/2018 4:05 PM CDT11/23/2017 6:06 PM CDT Narrative Authorizing ProviderResult TypeResult StatusDaiain More M.D.LAB BLOOD ADD-ONFinal ResultPerforming OrganizationAddressCity/State/ZIP CodePhone Number [facility] [address] [place] [address], [facility] from Last 3 Months or Most Recently Relevant to Health Maintenance Insurance * Guarantor: Mauri Harris ODAccount TypeRelation to PatientDate of BirthPhoneBilling AddressPersonal/VktlzoGcyv73/30/1951 [address] [place] [address] Advance Directives For more information, please contact: [phone] * Full Code (Latest Code Status on File) Date ActivatedDate InactivatedComments12/12/2024 12:35 PM12/12/2024 7:01 PM QuestionAnswerCommentsFull Code:* Not Discussed Due to:* Patient not available * Full Code Date ActivatedDate DbxnfxcgijoFyidhjmb52/23/2021 11:34 AM05/25/2021 12:04 PM QuestionAnswerCommentsFull Code:* Discussed * Full Code Date ActivatedDate YcfmvodtjnmWwlmtfma71/3/2020 12:20 PM05/05/2020 12:40 PM QuestionAnswerCommentsFull Code:* Discussed * Full Code Date ActivatedDate InactivatedComments03/04/2019 8:07 PM03/07/2019 3:57 PMQuestion AnswerCommentsFull Code:* Discussed Care Teams Team MemberRelationshipSpecialtyStart DateEnd Date Elsewhere, Pcp PCP - GeneralFamily Medicine03/23/21
--- OUTSIDE RECORDS SUMMARY | 2025-06-20 10:03 | XMS_ITS | Encounter Summary ---
Author Organization [facility] Address [address] [place] [address] Care Team Providers Care Wind Instrument Repairer Name Role Phone Elsewhere, Pcp Primary Care Provider Unavailabl e Encounter Details DateTypeDepartmentCare Team (Latest Contact Info)Puckxrpjxjs86/20/2025Results Follow-Up Department of Vascular Medicine in [place], [place] [address] [place] [address] Andre Garcia M.D. [address] [place] [phone] Echo Transthoracic (TTE), PET CT Cardiac Perfusion Rest and Stress Social History Tobacco UseTypesPacks/DayYears UsedDateSmoking Tobacco: [id number] - 1976CigarsPassive Smoke Exposure: PastSmokeless Tobacco: NeverAlcohol [...] completed or the highest degree you have received?Twyyvnvqh11/16/2022Sex and Gender Information ValueDate RecordedSex Assigned at EjkypNtro93/07/2018 1:03 PM CDTLegal SexMale 08/03/2016 5:25 PM CSTGender UcookhltBnww23/07/2018 1:03 PM CDTSexual JckdobjgdegHfsguzff76/07/2018 1:03 PM CDTdocumented as of this encounter [...]
--- OUTSIDE RECORDS SUMMARY | 2025-06-20 10:03 | XMS_ITS | Encounter Summary ---
Author Organization [facility] Address [address] [place] [address] Care Team Providers Care Infrastructure Security Architect Name Role Phone Elsewhere, Pcp Primary Care Provider Unavailabl e Reason for Visit * ReasonOnset DateCommentsPatient came in for emergent surgery - questions jeavrrqyb50/05/2025 Encounter Details DateTypeDepartmentCare Team (Latest Contact Info)Tgjrrhkhcie63/05/2025linical Communication Department of Vascular Medicine in [place], [place] [address] [place] [address] Andre Garcia M.D. [address] [place] [phone] Patient came in for emergent surgery - questions regarding Social History Tobacco UseTypesPacks/DayYears UsedDateSmoking Tobacco: [id number] - 1976CigarsPassive Smoke Exposure: PastSmokeless Tobacco: NeverAlcohol [...] RecordedIn the past 12 months has the [employer], gas, oil, or water company threatened to shut off services in your home?01/27/2025Housing StabilityAnswerDate RecordedWhat is your living situation today?I have a steady place to live01/27/2025Education AnswerDate RecordedWhat is the highest level of school you have completed or the highest degree you have received?Qjujeejuy53/16/2022ex and Gender Information ValueDate RecordedSex Assigned at SktxqPluo61/07/2018 1:03 PM CDTLegal SexMale 08/03/2016 5:25 PM CSTGender CidapuonBjgv24/07/2018 1:03 PM CDTSexual CwoiitdmtjlHwymemto98/07/2018 1:03 PM CDTdocumented as of this encounter Miscellaneous Notes * Telephone Encounter - Jenifer Saab R.N. - 06/05/2025 4:00 PM CST Returned the phone call, question was already addressed by Dr. Allen. No further action needed. 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
[2025-06-20 10:04] VITALS: BP 180/99; PULSE 64; RESP 18; O2SAT 98; BMI 26.2
--- NOTE | 2025-06-20 10:46 | ED.GENADULT ---
HPI - General Adult General Chief complaint: Extremity Pain/Injury, Lower Stated complaint: Hematoma to L thigh Time Seen by Provider: 06/20/25 10:00 History of Present Illness HPI narrative: Patient is a 74-year-old gentleman who comes in today after dropping a coffee cup on his left thigh. He has no young but the cup did break and he suffered a 2.5 cm laceration on the proximal thigh. 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 Patient has a filter in place and does not tolerate anticoagulation. He has been in touch with his vascular doctor at [place]. I did speak with the doctor. I described the the injury in the patient's current situation and the vascular surgeon asked me to clean the wound and close it. No disruption of the hematoma or DVTs were noted. Related Data Home Medications ?Medication ?Instructions ?Recorded ?Confirmed amoxicillin 500 mg capsule 500 mg PO 3XD 06/20/25 06/20/25 candesartan 32 mg tablet 32 mg PO DAILY 06/20/25 06/20/25 levothyroxine 137 mcg tablet 137 mcg PO DAILY 06/20/25 06/20/25 pravastatin 40 mg tablet 40 mg PO QPM 06/20/25 06/20/25 Allergies Allergy/AdvReac Type Severity Reaction Status Date / Time daptomycin Allergy Severe Verified 10/29/23 13:40 glucose Allergy Severe Verified 10/29/23 13:40 lisinopril Allergy Severe Verified 10/29/23 13:40 morphine Allergy Intermediate Verified 10/29/23 13:40 gluten Allergy Unknown Verified 06/20/25 10:16 lactose Allergy Unknown Verified 10/29/23 13:40 Frqcpwb-UZS-AtB Reductase Allergy Unknown Verified 10/29/23 13:40 Inhibitor Review of Systems Status of ROS: Reports: 10 or more systems reviewed and unremarkable except as noted in History and below Exam Narrative: Exam Narrative: EXAM GENERAL: Patient appears comfortable and well. EYES: No scleral icterus. LYMPH: No supraclavicular or cervical lymphadenopathy. SKIN: Visible skin seen during exam normal or with benign process only. EXT: Laceration as noted above. He does have an obvious hematoma distally closer to his knee. That hematoma is not involved in the injury. HEART: Regular rate and rhythm with no murmurs, rubs, or gallops. LUNGS: Clear to auscultation bilaterally with no crackles or wheezes. ABD: Soft, non tender, non distended. PSYCH: Good eye contact, speech is not pressured. Const: Vital Signs, click to edit/add: Vital Signs - 24 hr 06/20/25 10:04 Pulse Rate [Pulse Oximeter] 64 Respiratory Rate 18 Blood Pressure [Ri ght Upper Arm] 180/99 H Pulse Oximetry 98 Oxygen Delivery Me thod Room Air Course Course ED Course: I did examine the patient found a laceration and noted that hemostasis had been achieved. I provide local anesthesia with 1% lidocaine without epinephrine. I aggressively irrigated the wound and closed it with for running 3-0 Ethilon sutures. I did give him a g of Ancef after speaking to vascular surgery the patient will finish out his course of Augmentin that he was on previously at home. He was instructed on wound care will follow-up with his primary doctor for suture removal in approximately 1 week. Vital Signs Vital signs: Initial Vital Signs Temperature Source Temporal Artery Scan 06/20/25 10:04 Pulse Rate 64 06/20/25 10:04 Respiratory Rate 18 06/20/25 10:04 Blood Pressure 180/99 H 06/20/25 10:04 Blood Pressure Mean 126 H 06/20/25 10:04 Blood Pressure Position Sitting 06/20/25 10:04 Pulse Oximetry 98 06/20/25 10:04 Oxygen Delivery Method Room Air 06/20/25 10:04 Vital Signs Pulse Rate 64 06/20/25 10:04 Respiratory Rate 18 06/20/25 10:04 Blood Pressure 180/99 H 06/20/25 10:04 Pulse Oximetry 98 06/20/25 10:04 Oxygen Delivery Method Room Air 06/20/25 10:04 Pulse Rate 64 06/20/25 10:04 Respiratory Rate 18 06/20/25 10:04 Blood Pressure 180/99 H 06/20/25 10:04 Pulse Oximetry 98 06/20/25 10:04 Oxygen Delivery Method Room Air 06/20/25 10:04 Discharge Plan Discharge Clinical Impression: Laceration Patient Disposition: Home, Self-Care Condition: Stable Instructions: Laceration (ED) Additional Instructions: Finish course of Augmentin as previously prescribed Daily dressing changes Sutures out 1 week from Sunday Follow-up with your doctor as scheduled. Activity Level: No Restrictions Discharge Diet: Regular Prescriptions: No Action amoxicillin 500 mg capsule 500 mg PO 3XD levothyroxine 137 mcg tablet 137 mcg PO DAILY pravastatin 40 mg tablet 40 mg PO QPM candesartan 32 mg tablet 32 mg PO DAILY Follow Up/Referrals: Provider,Not a Local [Primary Care Provider, Family Practice] Stand Alone Forms: Placeling Info Instructions
[2025-06-20] MEDS: CEFAZOLIN 1 GM in 0.9 % SODIUM CHLORIDE Mini-bag 100 ML IVPB (10:58)
== END 2025-06-20 11:50 | disposition home or self-care (01) ==
PROVIDERS: Emergency Provider Internal Medicine
DX: S71.112A Laceration without foreign body, left thigh, initial encounter (principal); Z86.718 Personal history of other venous thrombosis and embolism; W20.8XXA Other cause of strike by thrown, projected or falling object, initial encounter; Y93.89 Activity, other specified
CPT/HCPCS: 12001; 96365; 99283; 99284; J0690